=== PATIENT | female | born 1930 | race Two or more races ===

== ENCOUNTER 2018-07-26 10:51 | Inpatient (IN) | payer MEDICARE, OTHER ==
[~2018-07-26] VITALS: Ht 144.8 cm; Wt 69.9 kg
[2018-07-26 11:17] VITALS: BP 113/82
--- NOTE | 2018-07-26 11:37 | Emergency Room Report ---
History of Present Illness General Chief Complaint: Dyspnea/Respdistress Source: Patient Present Illness HPI Patient presents with daughter for complaints of progressively worsening shortness of breath and cough Patient appears weaker than usual Has been eating less Daughter denies any focal deficit denies any recent fall or trauma Denies any recent travel Daughter reports that the patient appeared to have possible cold recently Otherwise denies any rash Denies any dysuria Allergies: Coded Allergies: No Known Allergies (Unverified , 07/26/18) Patient History Past Medical History: see triage record Pertinent Family History: none Now: No Reviewed Nursing Documentation: PMH: Agreed; PSxH: Agreed Nursing Documentation-PMH Past Medical History: No History, Except For Hx Asthma: Yes Hx COPD: Yes - Pneumonia Review of Systems All Other Systems: negative except mentioned in HPI Physical Exam Vital Signs Date Time Temp Pulse Resp B/P (MAP) Pulse Ox O2 Delivery O2 Flow Rate FiO2 07/26/18 10:58 98.1 89 20 114/75 Room Air 07/26/18 11:17 95 Sp02 EP Interpretation: reviewed, normal General Appearance: well appearing - However mildly weak Head: normocephalic, atraumatic Eyes: bilateral eye PERRL, bilateral eye EOMI ENT: hearing grossly normal, TMs + canals normal, uvula midline, dry mucus membranes Neck: full range of motion, supple, no meningismus, no bony tend Respiratory: no respiratory distress, no retraction, no accessory muscle use, crackles - Bilaterally Cardiovascular #1: normal peripheral pulses, regular rate, rhythm, no edema, no gallop, no JVD, no murmur Gastrointestinal: normal bowel sounds, non tender, soft, no mass, no organomegaly, non-distended, no guarding, no hernia, no pulsatile mass, no rebound Genitourinary: no CVA tenderness Musculoskeletal: normal inspection Neurologic: oriented x3, responsive, social media analyst III-XII nml as tested, motor strength/ tone normal, sensory intact Psychiatric: mood/affect normal Skin: normal color, no rash, warm/dry, palpation normal Lymphatic: normal inspection, no adenopathy Medical Decision Making Diagnostic Impression: Primary Impression: Dyspnea Additional Impression: Respiratory distress ER Course Patient is a fairly complex patient with multiple differential to consideration including but not limited to cardiac cardiopulmonary and vascular emergencies Patient did better with breathing treatment ABG does reveal some CO2 retention and BiPAP has been ordered Patient's x-ray also shows some mild markings in the perihilar region Patient has multiple abnormal findings requiring further inpatient care Labs Test 07/26/18 11:25 07/26/18 11:40 07/26/18 11:51 White Blood Count 6.1 K/UL (4.8-10.8) Red Blood Count 4.82 M/UL (4.20-5.40) Hemoglobin 14.1 G/DL (12.0-16.0) Hematocrit 44.3 % (37.0-47.0) Mean Corpuscular Volume 92 FL (80-99) Mean Corpuscular Hemoglobin 29.3 PG (27.0-31.0) Mean Corpuscular Hemoglobin Concent 31.9 G/DL (32.0-36.0) Red Cell Distribution Width 12.4 % (11.6-14.8) Platelet Count 245 K/UL (150-450) Mean Platelet Volume 6.2 FL (6.5-10.1) Neutrophils (%) (Auto) 72.3 % (45.0-75.0) Lymphocytes (%) (Auto) 14.8 % (20.0-45.0) Monocytes (%) (Auto) 11.5 % (1.0-10.0) Eosinophils (%) (Auto) 0.4 % (0.0-3.0) Basophils (%) (Auto) 1.1 % (0.0-2.0) Sodium Level 135 MMOL/L (136-145) Potassium Level 4.1 MMOL/L (3.5-5.1) Chloride Level 99 MMOL/L (98-107) Carbon Dioxide Level 32 MMOL/L (21-32) Anion Gap 4 mmol/L (5-15) Blood Urea Nitrogen 20 mg/dL (7-18) Creatinine 0.8 MG/DL (0.55-1.30) Estimat Glomerular Filtration Rate mL/min (>60) Glucose Level 116 MG/DL (74-106) Lactic Acid Level 1.10 mmol/L (0.4-2.0) Calcium Level 8.6 MG/DL (8.5-10.1) Total Bilirubin 0.6 MG/DL (0.2-1.0) Aspartate Amino Transf (AST/SGOT) 20 U/L (15-37) Alanine Aminotransferase (ALT/SGPT) 16 U/L (12-78) Alkaline Phosphatase 56 U/L (46-116) Total Creatine Kinase 79 U/L (26-308) Creatine Kinase MB 2.0 NG/ML (0.0-3.6) Creatine Kinase MB Relative Index 2.5 Troponin I 0.063 ng/mL (0.000-0.056) Pro-B-Type Natriuretic Peptide 7111 pg/mL (0-125) Total Protein 6.6 G/DL (6.4-8.2) Albumin 3.4 G/DL (3.4-5.0) Globulin 3.2 g/dL Albumin/Globulin Ratio 1.1 (1.0-2.7) Lipase 65 U/L (73-393) Urine Color Yellow Urine Appearance Clear Urine pH 6 (4.5-8.0) Urine Specific [place] 1.010 (1.005-1.035) Urine Protein 2+ (NEGATIVE) Urine Glucose (UA) Negative (NEGATIVE) Urine Ketones Negative (NEGATIVE) Urine Blood 2+ (NEGATIVE) Urine Nitrite Negative (NEGATIVE) Urine Bilirubin Negative (NEGATIVE) Urine Urobilinogen 1 MG/DL (0.0-1.0) Urine Leukocyte Esterase 1+ (NEGATIVE) Urine RBC 2-4 /HPF (0 - 2) Urine WBC 0-2 /HPF (0 - 2) Urine Squamous Epithelial Cells Few /LPF (NONE/OCC) Urine Bacteria Few /HPF (NONE) Arterial Blood pH 7.256 (7.350-7.450) Arterial Blood Partial Pressure CO2 65.8 mmHg (35.0-45.0) Arterial Blood Partial Pressure O2 81.5 mmHg (75.0-100.0) Arterial Blood HCO3 28.6 mmol/L (22.0-26.0) Arterial Blood Oxygen Saturation 94.4 % (95-100) Arterial Blood Base Excess -0.1 (-2-2) Luis Alfredo Test Positive Rhythm Strip Diag. Results EP Interpretation: yes Rate: 76 Rhythm: NSR, no PVC's, no ectopy Chest X-Ray Diagnostic Results Chest X-Ray Diagnostic Results : Chest X-Ray Ordered: Yes # of Views/Limited/Complete: 1 View Indication: Chest Pain EP Interpretation: Yes Interpretation: no consolidation, no pneumothorax, other - Bilateral atelectasis Impression: No acute disease Electronically Signed by: Yessenia Ramirez DO Last Vital Signs Date Time Temp Pulse Resp B/P (MAP) Pulse Ox O2 Delivery O2 Flow Rate FiO2 07/26/18 11:17 98.1 83 20 113/82 95 Room Air Status: improved Disposition: ADMITTED INPATIENT Condition: Serious Referrals: Phil Mario MD (PCP) Yessenia Ramirez DO Jul 26, 2018 11:37
[2018-07-26 11:46] LABS: APPEARANCE,URINE CLEAR; BILIRUBIN, URINE NEGATIVE (NEGATIVE); GLUCOSE, URINE (UA) NEGATIVE (NEGATIVE); KETONES,URINE NEGATIVE (NEGATIVE); LEUKOCYTE ESTERASE ,URINE 1+ (NEGATIVE); NITRITE,URINE NEGATIVE (NEGATIVE); PH,URINE 6 (4.5-8.0); PROTEIN,URINE 2+ (NEGATIVE); UROBILINOGEN,URINE 1 MG/DL (0.0-1.0)
[2018-07-26 11:49] LABS: BASOPHILS % (AUTO) 1.1 % (0.0-2.0); EOSINOPHILS % (AUTO) 0.4 % (0.0-3.0); HEMATOCRIT 44.3 % (37.0-47.0); HEMOGLOBIN 14.1 G/DL (12.0-16.0); LYMPHOCYTES % (AUTO) 14.8 % (20.0-45.0); MEAN CORPUSCULAR VOLUME 92 FL (80-99); MONOCYTES % (AUTO) 11.5 % (1.0-10.0); NEUTROPHILS % (AUTO) 72.3 % (45.0-75.0); PLATELET COUNT 245 K/UL (150-450); RED BLOOD COUNT 4.82 M/UL (4.20-5.40); RED CELL DISTRIBUTION WIDTH 12.4 % (11.6-14.8); WHITE BLOOD COUNT 6.1 K/UL (4.8-10.8)
[2018-07-26 11:50] LABS: COLOR,URINE YELLOW
[2018-07-26 11:52] LABS: ANION GAP 4 mmol/L (5-15); BLOOD UREA NITROGEN 20 mg/dL (7-18); CALCIUM 8.6 MG/DL (8.5-10.1); CARBON DIOXIDE 32 MMOL/L (21-32); CHLORIDE 99 MMOL/L (98-107); CREATININE 0.8 MG/DL (0.55-1.30); POTASSIUM 4.1 MMOL/L (3.5-5.1); SODIUM 135 MMOL/L (136-145)
--- NOTE | 2018-07-26 12:01 | Diagnostic Imaging Report ---
EXAM: XR Chest, 1 View CLINICAL HISTORY: Chest pain TECHNIQUE: Frontal view of the chest. COMPARISON: No relevant prior studies available. FINDINGS: Lungs: Subsegmental atelectasis in bilateral lung bases. Pleural space: Unremarkable. The costophrenic angles are sharp. No visible pneumothorax. Heart: Cardiac silhouette appears enlarged however is magnified by portable technique. Mediastinum: Unremarkable. Bones/joints: Unremarkable. Vasculature: Atherosclerotic calcifications are noted within the aortic arch. Tubes, lines and devices: EKG leads overlie the thorax. IMPRESSION: Subsegmental atelectasis in bilateral lung bases. Cardiomegaly
[2018-07-26 12:05] LABS: ALANINE AMINOTRANSFERASE 16 U/L (12-78); ALBUMIN 3.4 G/DL (3.4-5.0); ALBUMIN/GLOBULIN RATIO 1.1 (1.0-2.7); ALKALINE PHOSPHATASE 56 U/L (46-116); ASPARTATE AMINO TRANSFERASE 20 U/L (15-37); BILIRUBIN,TOTAL 0.6 MG/DL (0.2-1.0); CREATINE KINASE 79 U/L (26-308)
[2018-07-26 13:15] VITALS: BP 120/78
[2018-07-26] MEDS ORDERED: Milk of Magnesia 30ml Ud ORAL PRN (14:15)
[2018-07-26] MEDS ORDERED: OTEZLA30 MG PO (17:13)
[2018-07-26] MEDS ORDERED: LOSARTAN POTASS25 M1 PO (17:13)
[2018-07-26] MEDS ORDERED: ZANTAC150 MG ORAL (17:13)
[2018-07-26] MEDS ORDERED: VITAMIN D1000 UNI1 ORAL (17:13)
[2018-07-26 20:00] VITALS: BP 139/81
[2018-07-26] MEDS: Heparin 5000 units/ml inj SUBQ SCH (21:00)
[2018-07-27] VITALS: BP 91/54
[2018-07-27 04:00] VITALS: BP 135/63
[2018-07-27 08:00] VITALS: BP 120/63
--- NOTE | 2018-07-27 08:13 | Consultation ---
Consult Note Consult Note 87 year old patient presents with daughter for complaints of worsening shortness of breath and cough Patient appears weaker than usual but does have oxygen at home PO intake reduced Daughter denies any focal deficit denies any recent fall or trauma Denies any recent illness Daughter reports that the patient appeared to have possible viral illness recently she is known to me from office visits. she has chronic lung disease Allergies: No Known Allergies (Unverified , 07/26/18) Past Medical History: psoriasis, gastritis, vitamin D deficiency, chronic lung disease, chronic hypoxemia, Asthma Pertinent Family History: not contributory Reviewed of systems: reviewed in detail; arthritis, unsteady, chronically on oxygen Physical WDWN NAD advanced age reduced breath sounds bilaterally without rhonchi or wheeze [id number] without MRG; ectopy NABS nontender no HSM no CCE kyphotic nonfocal and alert Labs Test 07/26/18 11:25 07/26/18 11:40 07/26/18 11:51 White Blood Count 6.1 K/UL (4.8-10.8) Red Blood Count 4.82 M/UL (4.20-5.40) Hemoglobin 14.1 G/DL (12.0-16.0) Hematocrit 44.3 % (37.0-47.0) Mean Corpuscular Volume 92 FL (80-99) Mean Corpuscular Hemoglobin 29.3 PG (27.0-31.0) Mean Corpuscular Hemoglobin Concent 31.9 G/DL (32.0-36.0) Red Cell Distribution Width 12.4 % (11.6-14.8) Platelet Count 245 K/UL (150-450) Mean Platelet Volume 6.2 FL (6.5-10.1) Neutrophils (%) (Auto) 72.3 % (45.0-75.0) Lymphocytes (%) (Auto) 14.8 % (20.0-45.0) Monocytes (%) (Auto) 11.5 % (1.0-10.0) Eosinophils (%) (Auto) 0.4 % (0.0-3.0) Basophils (%) (Auto) 1.1 % (0.0-2.0) Sodium Level 135 MMOL/L (136-145) Potassium Level 4.1 MMOL/L (3.5-5.1) Chloride Level 99 MMOL/L (98-107) Carbon Dioxide Level 32 MMOL/L (21-32) Anion Gap 4 mmol/L (5-15) Blood Urea Nitrogen 20 mg/dL (7-18) Creatinine 0.8 MG/DL (0.55-1.30) Estimat Glomerular Filtration Rate mL/min (>60) Glucose Level 116 MG/DL (74-106) Lactic Acid Level 1.10 mmol/L (0.4-2.0) Calcium Level 8.6 MG/DL (8.5-10.1) Total Bilirubin 0.6 MG/DL (0.2-1.0) Aspartate Amino Transf (AST/SGOT) 20 U/L (15-37) Alanine Aminotransferase (ALT/SGPT) 16 U/L (12-78) Alkaline Phosphatase 56 U/L (46-116) Total Creatine Kinase 79 U/L (26-308) Creatine Kinase MB 2.0 NG/ML (0.0-3.6) Creatine Kinase MB Relative Index 2.5 Troponin I 0.063 ng/mL (0.000-0.056) Pro-B-Type Natriuretic Peptide 7111 pg/mL (0-125) Total Protein 6.6 G/DL (6.4-8.2) Albumin 3.4 G/DL (3.4-5.0) Globulin 3.2 g/dL Albumin/Globulin Ratio 1.1 (1.0-2.7) Lipase 65 U/L (73-393) Urine Color Yellow Urine Appearance Clear Urine pH 6 (4.5-8.0) Urine Specific [place] 1.010 (1.005-1.035) Urine Protein 2+ (NEGATIVE) Urine Glucose (UA) Negative (NEGATIVE) Urine Ketones Negative (NEGATIVE) Urine Blood 2+ (NEGATIVE) Urine Nitrite Negative (NEGATIVE) Urine Bilirubin Negative (NEGATIVE) Urine Urobilinogen 1 MG/DL (0.0-1.0) Urine Leukocyte Esterase 1+ (NEGATIVE) Urine RBC 2-4 /HPF (0 - 2) Urine WBC 0-2 /HPF (0 - 2) Urine Squamous Epithelial Cells Few /LPF (NONE/OCC) Urine Bacteria Few /HPF (NONE) Arterial Blood pH 7.256 (7.350-7.450) Arterial Blood Partial Pressure CO2 65.8 mmHg (35.0-45.0) Arterial Blood Partial Pressure O2 81.5 mmHg (75.0-100.0) Arterial Blood HCO3 28.6 mmol/L (22.0-26.0) Arterial Blood Oxygen Saturation 94.4 % (95-100) Arterial Blood Base Excess -0.1 (-2-2) Luis Alfredo Test Positive IMPRESSION acute on chronic respiratory failure respiratory acidosis, acute on chronic elevated troponin possible troponin leak elevated BNP fluid overload cardiomegaly chronic hypoxemia COPD PLAN nebs qid lasix cards evaluation monitor rhythm monitor troponin PT tele refusing ABG BIPAP PRN impression, plan, and exam edited and reviewed in detail care discussed with Phil Spivey MD Jul 27, 2018 08:13
--- NOTE | 2018-07-27 08:14 | Pulmonology Progress Note ---
Subjective Allergies: Coded Allergies: No Known Allergies (Unverified , 07/26/18) Objective Last 24 Hour Vital Signs Date Time Temp Pulse Resp B/P (MAP) Pulse Ox O2 Delivery O2 Flow Rate FiO2 07/27/18 07:26 94 16 97 07/27/18 04:57 96 16 96 Facial 24 07/27/18 04:00 86 07/27/18 04:00 97.4 102 19 135/63 (87) 94 07/27/18 04:00 24 07/27/18 03:20 98 16 96 Facial 24 07/27/18 01:21 109 20 95 Facial 24 07/27/18 00:00 24 07/27/18 00:00 85 07/27/18 00:00 98.8 100 16 91/54 (66) 93 07/26/18 23:29 106 20 96 Facial 24 07/26/18 21:00 Bi-pap 07/26/18 20:51 83 17 96 Facial 24 07/26/18 20:50 83 19 96 Facial 24 07/26/18 20:00 91 07/26/18 20:00 24 07/26/18 20:00 98.5 73 20 139/81 (100) 96 07/26/18 16:54 89 20 94 Facial 24 07/26/18 16:00 24 07/26/18 15:41 100 07/26/18 15:30 72 19 95 Facial 24 07/26/18 13:49 Bi-pap 07/26/18 13:30 98.1 77 19 113/82 97 24 07/26/18 13:15 98.0 77 20 120/78 98 Room Air 07/26/18 12:35 99 19 97 Facial 24 07/26/18 11:17 98.1 83 20 113/82 95 Room Air 07/26/18 11:13 89 20 Room Air 07/26/18 10:58 98.1 89 20 114/75 Room Air Intake and Output 07/26/18 07/27/18 18:59 06:59 Intake Total 300 ml Balance 300 ml Intake Oral 300 ml # Voids 3 Laboratory Tests 07/26/18 11:25: White Blood Count 6.1, Red Blood Count 4.82, Hemoglobin 14.1, Hematocrit 44.3, Mean Corpuscular Volume 92, Mean Corpuscular Hemoglobin 29.3, Mean Corpuscular Hemoglobin Concent 31.9L, Red Cell Distribution Width 12.4, Platelet Count 245, Mean Platelet Volume 6.2L, Neutrophils (%) (Auto) 72.3, Lymphocytes (%) (Auto) 14.8L, Monocytes (%) (Auto) 11.5H, Eosinophils (%) (Auto) 0.4, Basophils (%) ( Auto) 1.1, Sodium Level 135L, Potassium Level 4.1, Chloride Level 99, Carbon Dioxide Level 32, Anion Gap 4L, Blood Urea Nitrogen 20H, Creatinine 0.8, Estimat Glomerular Filtration Rate , Glucose Level 116H, Lactic Acid Level 1.10 , Calcium Level 8.6, Total Bilirubin 0.6, Aspartate Amino Transf (AST/SGOT) 20, Alanine Aminotransferase (ALT/SGPT) 16, Alkaline Phosphatase 56, Total Creatine Kinase 79, Creatine Kinase MB 2.0, Creatine Kinase MB Relative Index 2.5, Troponin I 0.063H, Pro-B-Type Natriuretic Peptide 7111H, Total Protein 6.6, Albumin 3.4, Globulin 3.2, Albumin/Globulin Ratio 1.1, Lipase 65L 07/26/18 11:40: Urine Color Yellow, Urine Appearance Clear, Urine pH 6, Urine Specific [place] 1.010, Urine Protein 2+H, Urine Glucose (UA) Negative, Urine Ketones Negative, Urine Blood 2+H, Urine Nitrite Negative, Urine Bilirubin Negative, Urine Urobilinogen 1H, Urine Leukocyte Esterase 1+H, Urine RBC 2-4H, Urine WBC 0-2, Urine Squamous Epithelial Cells Few, Urine Bacteria Few 07/26/18 11:51: Arterial Blood pH 7.256L, Arterial Blood Partial Pressure CO2 65.8*H, Arterial Blood Partial Pressure O2 81.5, Arterial Blood HCO3 28.6H, Arterial Blood Oxygen Saturation 94.4L, Arterial Blood Base Excess -0.1, Luis Alfredo Test Positive Current Medications Medications (Trade) Dose Ordered Sig/Bijal Route PRN Reason Start Time Stop Time Status Last Admin Dose Admin Acetaminophen (Tylenol) 650 mg Q4H PRN ORAL Mild Pain/Temp > 100.5 07/26/18 14:15 08/25/18 14:14 07/27/18 03:48 Al Hydroxide/Mg Hydroxide (Mylanta) 30 ml DAILYPRN PRN ORAL FOR GI UPSET 07/26/18 15:45 08/25/18 14:14 Famotidine (Pepcid) 20 mg DAILY ORAL 07/27/18 09:00 08/26/18 08:59 Furosemide (Lasix) 40 mg DAILY IV 07/27/18 09:00 08/26/18 08:59 Heparin Sodium (Porcine) (Heparin 5000 units/ml) 5,000 units EVERY 12 HOURS SUBQ 07/26/18 21:00 08/25/18 20:59 Losartan Potassium (Cozaar) 50 mg DAILY ORAL 07/27/18 09:00 08/26/18 08:59 Magnesium Hydroxide (Mom) 30 ml DAILYPRN PRN ORAL Constipation 07/26/18 14:15 08/25/18 14:14 Pantoprazole (Protonix) 40 mg DAILY IVP 07/27/18 09:00 08/26/18 08:59 Phil Mario MD Jul 27, 2018 08:13
[2018-07-27] MEDS: Pantoprazole Inj IVP SCH (08:49)
[2018-07-27] MEDS: Losartan 50mg tab ORAL SCH (08:53)
[2018-07-27] MEDS: Heparin 5000 units/ml inj SUBQ SCH ×2 (08:55→21:16)
[2018-07-27] MEDS: Albuterol ud Inhalation HHN SCH ×4 (10:40→23:09)
--- NOTE | 2018-07-27 10:59 | Diagnostic Imaging Report ---
EXAM: XR Chest, 2 Views CLINICAL HISTORY: COPD TECHNIQUE: Frontal and lateral views of the chest. COMPARISON: Chest x-ray dated 07/26/18 FINDINGS: Lungs: Mild subsegmental atelectasis in medial lung bases. Emphysematous changes in the upper lung zones. Pleural space: Unremarkable. The costophrenic angle are sharp. No visible pneumothorax. Heart: Cardiac silhouette remains enlarged. Mediastinum: Unremarkable. Bones/joints: Unremarkable. Vasculature: Atherosclerotic calcifications are noted within the aortic arch. Tubes, lines and devices: EKG leads overlie the thorax. IMPRESSION: No significant interval change.
[2018-07-27 12:00] VITALS: BP 132/72
--- NOTE | 2018-07-27 13:30 | History and Physical Report ---
DATE OF ADMISSION: 07/26/2018 CHIEF COMPLAINT: Shortness of breath. HISTORY OF PRESENT ILLNESS: The patient is a pleasant 87-year-old female. She has a history of chronic lung disease and COPD, presented to the hospital with complaints of feeling "bad." According to the patient, she has not been feeling well for a little over a week. There is some questionable history of flu-like symptoms. The patient presented to the emergency room. There x-ray showed bibasilar atelectasis. She did have an elevated troponin. ABG showed respiratory acidosis. She was placed on BiPAP, given breathing treatments, and is now admitted for further evaluation and care. She denies any jhon chest pain. She denies any fevers or chills. PAST MEDICAL HISTORY: As above. PAST SURGICAL HISTORY: Include shoulder or back surgery. CURRENT MEDICATIONS: Reconciled and reviewed. ALLERGIES: None. FAMILY HISTORY: None. SOCIAL HISTORY: The patient is a prior heavy smoker, but quit 20 years ago. No alcohol. No drugs. REVIEW OF SYSTEMS: GENERAL: Positive malaise and weakness. HEENT: No headaches or visual changes. CARDIOPULMONARY: No chest pain. Positive shortness of breath. GASTROINTESTINAL: No nausea or vomiting. GENITOURINARY: No urgency or frequency. MUSCULOSKELETAL: No joint pain or swelling. NEUROLOGIC: No history of seizures. PHYSICAL EXAMINATION: VITAL SIGNS: Temperature 97.4, pulse 102, respirations 19, and blood pressure 135/63. GENERAL: The patient is a well-developed female, in no apparent distress. She is awake and alert. HEENT: Her pupils are equal, round, and reactive to light. Oropharynx clear. NECK: Supple. HEART: Regular rate and rhythm. LUNGS: Significant for diminished breath sounds. ABDOMEN: Soft, nontender, and nondistended. EXTREMITIES: Without clubbing, cyanosis, or edema. LABORATORY AND DIAGNOSTIC DATA: Chest x-ray showed bibasilar atelectasis. UA was clear. White count was 6, hemoglobin 14. Sodium 135, potassium is 4. Troponin 0.063. EKG showed sinus rhythm with PACs. ASSESSMENT: This is a pleasant female admitted with complaints of shortness of breath, the etiology of which is unclear, may be some combination of her chronic lung disease, cannot rule out acute coronary syndrome in light of the patient's elevated troponin. PLAN: Serial enzymes. Antiplatelet therapy. BiPAP as needed. Respiratory treatments. Diuresis. Check a venous duplex of the lower extremities. Pulmonary and Cardiology evaluations will be obtained. Jai Reddy M.D. DR: LELA JOB#: [id number] CC:
[2018-07-27 16:00] VITALS: BP 124/75
[2018-07-27 20:00] VITALS: BP 143/86
[2018-07-28] VITALS (7 sets, daily range): BP systolic 106–141; BP diastolic 57–70
[2018-07-28] MEDS: dilTIAZem HCl 30mg tab ORAL SCH ×5 (01:14→23:22)
[2018-07-28] MEDS: Albuterol ud Inhalation HHN SCH ×6 (02:54→23:03)
--- NOTE | 2018-07-28 07:15 | Consultation ---
DATE OF CONSULTATION: 07/27/2018 CARDIOLOGY CONSULTATION CONSULTING PHYSICIAN: Alonzo Guidry M.D. REQUESTING PHYSICIAN: Jai Reddy M.D. REASON FOR CONSULTATION: Cardiac arrhythmias and abnormal troponin level. HISTORY OF PRESENT ILLNESS: This is an 87-year-old female with a longstanding history of COPD who presented to the hospital yesterday with worsening complaints of shortness of breath and cough. She was increasingly weak and had reduced oral intake, sleeping more frequently, and less interactive according to her daughter. The patient has chronic hypoxia and is on home O2. In the emergency room, her initial diagnostic workup was notable for chest x-ray that revealed atelectasis and cardiomegaly. An ABG revealing pH 7.256, pCO2 66, and pO2 81. Natriuretic peptide of 7100. Her troponin of 0.063. Normal lactic acid. BUN 20, creatinine 0.8, potassium 4.1, sodium 135, and bicarbonate 32. Albumin of 3.4. The white count was 6.1 with hemoglobin 14. Urinalysis with no active sediment. The patient was admitted to the cardiac observation unit and started on intravenous furosemide inhaled bronchodilators. Continued on oxygen and has not been on steroids. Since admission, she continues to have arrhythmias obtained that I have reviewed. There appeared to be multifocal atrial tachycardia, episodes of sinus arrhythmia, and other episodes of sinus rhythm with frequent PACs. There is no sustained atrial fibrillation noted at this time. PAST MEDICAL HISTORY: Includes COPD, chronic hypoxia, and prior shoulder and back surgeries. ALLERGIES: None. FAMILY HISTORY: Noncontributory. SOCIAL HISTORY: Prior smoker over [id number], but quit 20 years ago. No alcohol or substance abuse. MEDICATIONS: Prior to admission, reviewed and reconciled. REVIEW OF SYSTEMS: A 10-point review of systems performed. All systems negative other than noted above. PHYSICAL EXAMINATION: VITAL SIGNS: Blood pressure 143/86, pulse 100, respiratory rate 18, and afebrile. HEENT: Normocephalic and atraumatic. Conjunctivae pink. Oropharynx clear. NECK: Supple. No accessory muscle use. LUNGS: Diminished breath sounds. No wheezing. CARDIAC: Irregularly irregular rhythm. Normal S1 and S2 with no appreciable murmur. ABDOMEN: Soft. EXTREMITIES: With no edema, cyanosis, or clubbing. IMPRESSION: 1. Acute on chronic respiratory acidosis. 2. Chronic hypoxia. 3. COPD exacerbation. 4. Acute myocardial ischemia and possible non-ST elevation infarction. 5. Acute on chronic diastolic congestive heart failure, likely right-sided and associated with acute respiratory compromise. 6. Paroxysmal atrial arrhythmias including multifocal atrial tachycardia, sinus arrhythmia, and premature atrial contractions with possibility of atrial fibrillation remains high. PLAN: 1. Recommend continue cardiac monitoring. 2. Add low-dose diltiazem for arrhythmia suppression. 3. Hold diuresis and recheck clinical parameters as well as natriuretic peptide assay. 4. Repeat troponin level. 5. Continue DVT prophylaxis. 6. Consideration for full anticoagulation should there be evidence of sustained atrial fibrillation and echocardiogram has been requested as well as thyroid panel. Alonzo Guidry M.D. DR: JEFFERSON JOB#: [id number] CC:
--- NOTE | 2018-07-28 08:32 | General Progress Note ---
Assessment/Plan Problem List: (1) Dyspnea ICD Codes: R06.00 - Dyspnea, unspecified SNOMED: 112267240 (2) Respiratory distress ICD Codes: R06.03 - Acute respiratory distress SNOMED: 651240985 (3) Arrhythmia ICD Codes: I49.9 - Cardiac arrhythmia, unspecified SNOMED: 925524003 Status: stable Assessment/Plan prn bipap o2 resp rx cardizem for rate control. dvt/stress ulcer prophylaxis follow up labs Subjective ROS Limited/Unobtainable: No Constitutional: Reports: weakness HEENT: Reports: no symptoms Cardiovascular: Reports: no symptoms Respiratory: Reports: shortness of breath Gastrointestinal/Abdominal: Reports: no symptoms Genitourinary: Reports: no symptoms Neurologic/Psychiatric: Reports: no symptoms Endocrine: Reports: no symptoms Hematologic/Lymphatic: Reports: no symptoms Allergies: Coded Allergies: No Known Allergies (Unverified , 07/26/18) All Systems: reviewed and negative except above Subjective no complaints. up eating breakfast. less sob. no chest pain no palpitations. Objective Last 24 Hour Vital Signs Date Time Temp Pulse Resp B/P (MAP) Pulse Ox O2 Delivery O2 Flow Rate FiO2 07/28/18 07:32 99 18 Nasal Cannula 3.0 32 07/28/18 07:32 Nasal Cannula 3.0 32 07/28/18 07:32 71 19 98 Nasal Cannula 3.0 32 07/28/18 07:32 99 Nasal Cannula 3.0 32 07/28/18 07:32 95 Nasal Cannula 2.0 28 07/28/18 05:51 100 121/53 07/28/18 04:00 98.3 95 20 111/68 (82) 95 07/28/18 04:00 24 07/28/18 03:46 94 07/28/18 03:02 68 20 98 Nasal Cannula 3.0 32 07/28/18 02:54 64 18 98 Nasal Cannula 3.0 32 07/28/18 01:14 93 106/67 07/28/18 00:00 97.5 74 22 106/67 (80) 95 07/27/18 23:21 69 18 98 Nasal Cannula 3.0 32 07/27/18 23:18 100 07/27/18 23:09 65 18 97 Nasal Cannula 3.0 32 07/27/18 21:00 Nasal Cannula 2.0 07/27/18 20:00 24 07/27/18 20:00 98.4 100 18 143/86 (105) 97 07/27/18 19:49 100 07/27/18 19:33 98 18 100 Nasal Cannula 3.0 32 07/27/18 19:23 98 20 99 Nasal Cannula 3.0 32 07/27/18 19:23 98 20 Nasal Cannula 3.0 32 07/27/18 16:00 24 07/27/18 16:00 92 07/27/18 16:00 97.3 84 16 124/75 (91) 97 07/27/18 14:36 Nasal Cannula 3.0 32 07/27/18 14:36 Nasal Cannula 3.0 32 07/27/18 12:00 97.9 85 16 132/72 (92) 100 07/27/18 12:00 24 07/27/18 12:00 89 07/27/18 10:40 Nasal Cannula 3.0 32 07/27/18 10:40 101 16 96 Nasal Cannula 3.0 32 07/27/18 09:00 Nasal Cannula 2.0 07/27/18 08:53 127/81 Intake and Output 07/27/18 07/28/18 19:00 07:00 Intake Total 360 ml 240 ml Balance 360 ml 240 ml Intake Oral 360 ml 240 ml # Voids 2 4 Height (Feet): 4 Height (Inches): 9.00 Weight (Pounds): 156 General Appearance: WD/WN, alert Neck: supple Cardiovascular: normal rate, regular rhythm Respiratory/Chest: chest wall non-tender, no respiratory distress, no accessory muscle use, decreased breath sounds Abdomen: normal bowel sounds, non tender, soft, no organomegaly Edema: no edema noted Arm (L), no edema noted Arm (R), no edema noted Leg (L), no edema noted Leg (R), no edema noted Pedal (L), no edema noted Pedal (R), no edema noted Generalized Jai Reddy MD Jul 28, 2018 08:32
--- NOTE | 2018-07-28 08:48 | Pulmonology Progress Note ---
Assessment/Plan Assessment/Plan IMPRESSION acute on chronic respiratory failure respiratory acidosis, acute on chronic elevated troponin possible troponin leak elevated BNP fluid overload cardiomegaly chronic hypoxemia COPD PLAN nebs qid jeannette and shivame cards evaluation noted monitor rhythm monitor troponin PT tele BIPAP PRN- not using dc planning oxygen needed with chronic hypoxemia- room air oxygen saturation is 80% at present impression, plan, and exam edited and reviewed in detail care discussed with RN Subjective Allergies: Coded Allergies: No Known Allergies (Unverified , 07/26/18) Subjective care noted comfortable no distress refuses ABG Objective Last 24 Hour Vital Signs Date Time Temp Pulse Resp B/P (MAP) Pulse Ox O2 Delivery O2 Flow Rate FiO2 07/28/18 11:00 99 18 82 Room Air 07/28/18 07:32 Nasal Cannula 3.0 32 07/28/18 07:32 71 19 98 Nasal Cannula 3.0 32 07/28/18 07:32 99 Nasal Cannula 3.0 32 07/28/18 07:32 95 Nasal Cannula 2.0 28 07/28/18 05:51 100 121/53 07/28/18 04:00 98.3 95 20 111/68 (82) 95 07/28/18 04:00 24 07/28/18 03:46 94 07/28/18 03:02 68 20 98 Nasal Cannula 3.0 32 07/28/18 02:54 64 18 98 Nasal Cannula 3.0 32 07/28/18 01:14 93 106/67 07/28/18 00:00 97.5 74 22 106/67 (80) 95 07/27/18 23:21 69 18 98 Nasal Cannula 3.0 32 07/27/18 23:18 100 07/27/18 23:09 65 18 97 Nasal Cannula 3.0 32 07/27/18 21:00 Nasal Cannula 2.0 07/27/18 20:00 24 07/27/18 20:00 98.4 100 18 143/86 (105) 97 07/27/18 19:49 100 07/27/18 19:33 98 18 100 Nasal Cannula 3.0 32 07/27/18 19:23 98 20 99 Nasal Cannula 3.0 32 07/27/18 19:23 98 20 Nasal Cannula 3.0 32 07/27/18 16:00 24 07/27/18 16:00 92 07/27/18 16:00 97.3 84 16 124/75 (91) 97 07/27/18 14:36 Nasal Cannula 3.0 32 07/27/18 14:36 Nasal Cannula 3.0 32 07/27/18 12:00 97.9 85 16 132/72 (92) 100 07/27/18 12:00 24 07/27/18 12:00 89 07/27/18 10:40 Nasal Cannula 3.0 32 07/27/18 10:40 101 16 96 Nasal Cannula 3.0 32 07/27/18 09:00 Nasal Cannula 2.0 07/27/18 08:53 127/81 Intake and Output 07/27/18 07/28/18 19:00 07:00 Intake Total 360 ml 240 ml Balance 360 ml 240 ml Intake Oral 360 ml 240 ml # Voids 2 4 Objective WDWN NAD kyphotic; on oxygen reduced breath sounds bilaterally without rhonchi or wheeze [id number] without MRG NABS nontender no HSM no CC mild edema nonfocal Microbiology Date/Time Source Procedure Growth Status 07/26/18 11:40 Blood Blood Culture - Preliminary NO GROWTH AFTER 24 HOURS Resulted 07/26/18 11:25 Blood Blood Culture - Preliminary NO GROWTH AFTER 24 HOURS Resulted Current Medications Medications (Trade) Dose Ordered Sig/Bijal Route PRN Reason Start Time Stop Time Status Last Admin Dose Admin Acetaminophen (Tylenol) 650 mg Q4H PRN ORAL Mild Pain/Temp > 100.5 07/26/18 14:15 08/25/18 14:14 07/27/18 23:35 Al Hydroxide/Mg Hydroxide (Mylanta) 30 ml DAILYPRN PRN ORAL FOR GI UPSET 07/26/18 15:45 08/25/18 14:14 Albuterol Sulfate (Proventil) 2.5 mg Q4HRT HHN 07/27/18 11:00 08/01/18 10:59 07/28/18 02:54 Diltiazem HCl (Cardizem) 30 mg EVERY 6 HOURS ORAL 07/28/18 00:45 08/27/18 00:44 07/28/18 05:51 Famotidine (Pepcid) 20 mg DAILY ORAL 07/27/18 09:00 08/26/18 08:59 07/27/18 08:49 Heparin Sodium (Porcine) (Heparin 5000 units/ml) 5,000 units EVERY 12 HOURS SUBQ 07/26/18 21:00 08/25/18 20:59 07/27/18 21:16 Losartan Potassium (Cozaar) 50 mg DAILY ORAL 07/27/18 09:00 08/26/18 08:59 07/27/18 08:53 Magnesium Hydroxide (Mom) 30 ml DAILYPRN PRN ORAL Constipation 07/26/18 14:15 08/25/18 14:14 Pantoprazole (Protonix) 40 mg DAILY IVP 07/27/18 09:00 08/26/18 08:59 07/27/18 08:49 Phil Mario MD Jul 28, 2018 08:48
[2018-07-28] MEDS: Pantoprazole Inj IVP SCH (09:04)
[2018-07-28] MEDS: Losartan 50mg tab ORAL SCH (09:06)
[2018-07-28] MEDS: Heparin 5000 units/ml inj SUBQ SCH ×2 (09:07→20:39)
[2018-07-28] MEDS ORDERED: Albuterol ud Inhalation HHN SCH (09:30)
[2018-07-28 11:22] LABS: BASOPHILS % (AUTO) 1.1 % (0.0-2.0); EOSINOPHILS % (AUTO) 1.2 % (0.0-3.0); HEMATOCRIT 43.6 % (37.0-47.0); HEMOGLOBIN 13.9 G/DL (12.0-16.0); LYMPHOCYTES % (AUTO) 17.1 % (20.0-45.0); MEAN CORPUSCULAR VOLUME 94 FL (80-99); MONOCYTES % (AUTO) 12.9 % (1.0-10.0); NEUTROPHILS % (AUTO) 67.8 % (45.0-75.0); PLATELET COUNT 226 K/UL (150-450); RED BLOOD COUNT 4.65 M/UL (4.20-5.40); RED CELL DISTRIBUTION WIDTH 12.6 % (11.6-14.8); WHITE BLOOD COUNT 5.3 K/UL (4.8-10.8)
[2018-07-28 12:04] LABS: ALANINE AMINOTRANSFERASE 15 U/L (12-78); ALBUMIN 3.1 G/DL (3.4-5.0); ALBUMIN/GLOBULIN RATIO 0.9 (1.0-2.7); ALKALINE PHOSPHATASE 50 U/L (46-116); ANION GAP 1 mmol/L (5-15); ASPARTATE AMINO TRANSFERASE 17 U/L (15-37); BILIRUBIN,TOTAL 0.5 MG/DL (0.2-1.0); BLOOD UREA NITROGEN 14 mg/dL (7-18); CALCIUM 8.7 MG/DL (8.5-10.1); CARBON DIOXIDE 35 MMOL/L (21-32); CHLORIDE 103 MMOL/L (98-107); CHOLESTEROL 138 MG/DL (< 200); CREATININE 0.7 MG/DL (0.55-1.30); HDL CHOLESTEROL 39 MG/DL (40-60); POTASSIUM 4.2 MMOL/L (3.5-5.1); SODIUM 139 MMOL/L (136-145); TRIGLYCERIDES 60 MG/DL (30-150)
[2018-07-29] MEDS: Albuterol ud Inhalation HHN SCH ×3 (02:41→11:05)
[2018-07-29 04:28] VITALS: BP 106/76
[2018-07-29] MEDS: dilTIAZem HCl 30mg tab ORAL SCH (05:33)
--- NOTE | 2018-07-29 07:58 | Cardiology Report ---
APPROVED REPORT EXAM: Two-dimensional and M-mode echocardiogram with Doppler and color Doppler. INDICATION Arrythmia M-Mode DIMENSIONS IVSd1.1 (0.7-1.1cm)Left Atrium (MM)4.0 (1.6-4.0cm) LVDd5.0 (3.5-5.6cm)Aortic Root3.9 (2.0-3.7cm) PWd1.2 (0.7-1.1cm)Aortic Cusp Exc.1.9 (1.5-2.0cm) IVSs1.4 cm LVDs3.0 (2.5-4.0cm) PWs1.1 cm Normal left ventricular chamber size, systolic function and wall motion. Left ventricular ejection fraction estimated to be 55-60 %. Mild left ventricular hypertrophy by 2-D. Small pericardial effusion. Borderline Mild bi-atrial enlargement. Right ventricular chamber sizes are within normal limits. Focal aortic valve sclerosis with adequate cusp excursion. Moderatly Thickened mitral valve leaflets with normal excursion. Moderatly Mitral annulus and aortic root calcification. Pulmonic valve not well visualized. Normal tricuspid valve structure. IVC at 1.7 cm without physiologic collapse suggestive of increased RA pressure. A color flow and spectral Doppler study was performed and revealed: No aortic insufficiency . Trace to mild mitral regurgitation. Mitral diastolic velocities suggest reduced left ventricular relaxation c/w mild LV diastolic dysfunction (Grade I ). Mild tricuspid regurgitation. Tricuspid systolic velocities suggests peak right ventricular systolic pressure of 60 mmHg,consistent with borderline severe pulmonary hypertension. Trace pulmonic regurgitation .
--- NOTE | 2018-07-29 08:28 | Cardiology Report ---
APPROVED REPORT EKG Measurement Heart [id number] CO [id number] Multifocal atrial rhythm Abnormal ECG
--- NOTE | 2018-07-29 08:43 | General Progress Note ---
Assessment/Plan Problem List: (1) Dyspnea ICD Codes: R06.00 - Dyspnea, unspecified SNOMED: 254259192 (2) Respiratory distress ICD Codes: R06.03 - Acute respiratory distress SNOMED: 036137479 (3) Arrhythmia ICD Codes: I49.9 - Cardiac arrhythmia, unspecified SNOMED: 681815268 Status: stable, progressing Assessment/Plan prn bipap o2 resp rx cardizem for rate control. dvt/stress ulcer prophylaxis prn diuresis Subjective ROS Limited/Unobtainable: No Constitutional: Reports: malaise, weakness HEENT: Reports: no symptoms Cardiovascular: Reports: no symptoms Respiratory: Reports: no symptoms Gastrointestinal/Abdominal: Reports: no symptoms Genitourinary: Reports: no symptoms Neurologic/Psychiatric: Reports: no symptoms Endocrine: Reports: no symptoms Hematologic/Lymphatic: Reports: no symptoms Allergies: Coded Allergies: No Known Allergies (Unverified , 07/26/18) All Systems: reviewed and negative except above Subjective no complaints. less sob. no chest pain no palpitations. echo noted. of bipap on nasal cannula Objective Last 24 Hour Vital Signs Date Time Temp Pulse Resp B/P (MAP) Pulse Ox O2 Delivery O2 Flow Rate FiO2 07/29/18 07:46 97 18 96 Nasal Cannula 2.0 28 07/29/18 07:41 99 18 92 Room Air 21 07/29/18 07:41 Nasal Cannula 3.0 32 07/29/18 07:39 92 Room Air 21 07/29/18 05:33 102 106/76 07/29/18 04:28 98.3 103 21 106/76 (86) 94 07/29/18 02:56 93 18 99 Nasal Cannula 2.0 28 07/29/18 02:41 88 18 97 Nasal Cannula 2.0 28 07/28/18 23:57 99.1 07/28/18 23:22 102 141/58 07/28/18 23:13 90 18 100 Nasal Cannula 2.0 28 07/28/18 23:10 98.5 88 20 141/58 (85) 96 07/28/18 23:03 91 18 98 Nasal Cannula 2.0 28 07/28/18 21:00 Nasal Cannula 2.0 07/28/18 20:00 99.1 61 20 125/57 (79) 97 07/28/18 19:53 65 18 99 Nasal Cannula 2.0 28 07/28/18 19:44 Nasal Cannula 3.0 32 07/28/18 19:44 97 Nasal Cannula 3.0 32 07/28/18 19:43 85 18 Nasal Cannula 3.0 32 07/28/18 19:42 77 18 95 Nasal Cannula 2.0 28 07/28/18 18:27 82 131/69 07/28/18 16:00 97.8 82 19 131/69 (89) 98 07/28/18 15:25 81 16 97 Nasal Cannula 2.0 28 07/28/18 15:13 81 21 93 Nasal Cannula 2.0 28 07/28/18 12:15 77 121/67 07/28/18 12:00 100 07/28/18 12:00 97.0 77 19 121/67 (85) 99 07/28/18 11:06 Nasal Cannula 2.0 28 07/28/18 11:06 94 Nasal Cannula 2.0 28 07/28/18 09:45 66 18 97 Nasal Cannula 2.0 28 07/28/18 09:33 67 21 94 Nasal Cannula 2.0 28 07/28/18 09:06 130/70 07/28/18 09:00 Nasal Cannula 2.0 Intake and Output 07/28/18 07/29/18 19:00 07:00 Intake Total 480 ml 640 ml Balance 480 ml 640 ml Intake Oral 480 ml 640 ml # Voids 3 4 # Bowel Movements 1 Laboratory Tests 07/28/18 10:20: White Blood Count 5.3, Red Blood Count 4.65, Hemoglobin 13.9, Hematocrit 43.6, Mean Corpuscular Volume 94, Mean Corpuscular Hemoglobin 29.9, Mean Corpuscular Hemoglobin Concent 32.0, Red Cell Distribution Width 12.6, Platelet Count 226, Mean Platelet Volume 5.7L, Neutrophils (%) (Auto) 67.8, Lymphocytes (%) (Auto) 17.1L, Monocytes (%) (Auto) 12.9H, Eosinophils (%) (Auto) 1.2, Basophils (%) ( Auto) 1.1, Sodium Level 139, Potassium Level 4.2, Chloride Level 103, Carbon Dioxide Level 35H, Anion Gap 1L, Blood Urea Nitrogen 14, Creatinine 0.7, Estimat Glomerular Filtration Rate , Glucose Level 112H, Calcium Level 8.7, Magnesium Level 1.7L, Total Bilirubin 0.5, Aspartate Amino Transf (AST/SGOT) 17 , Alanine Aminotransferase (ALT/SGPT) 15, Alkaline Phosphatase 50, Troponin I 0.026, Pro-B-Type Natriuretic Peptide 1644H, Total Protein 6.5, Albumin 3.1L, Globulin 3.4, Albumin/Globulin Ratio 0.9L, Triglycerides Level 60, Cholesterol Level 138, LDL Cholesterol 82, HDL Cholesterol 39L, Cholesterol/HDL Ratio 3.5, Thyroid Stimulating Hormone (TSH) 0.318L Height (Feet): 4 Height (Inches): 9.00 Weight (Pounds): 155 Objective General Appearance: WD/WN, alert Neck: supple Cardiovascular: normal rate, regular rhythm Respiratory/Chest: chest wall non-tender, no respiratory distress, no accessory muscle use, decreased breath sounds Abdomen: normal bowel sounds, non tender, soft, no organomegaly Edema: no edema noted Arm (L), no edema noted Arm (R), no edema noted Leg (L), no edema noted Leg (R), no edema noted Pedal (L), no edema noted Pedal (R), no edema noted Generalized Jai Reddy MD Jul 29, 2018 08:43
--- NOTE | 2018-07-29 08:53 | Pulmonology Progress Note ---
Assessment/Plan Assessment/Plan IMPRESSION acute on chronic respiratory failure respiratory acidosis, acute on chronic elevated troponin possible troponin leak elevated BNP fluid overload cardiomegaly chronic hypoxemia COPD PLAN nebs qid lasix and diurese- january dc cards evaluation noted monitor rhythm monitor troponin PT tele BIPAP PRN- not using dc planning today oxygen needed with chronic hypoxemia- impression, plan, and exam edited and reviewed in detail care discussed with RN Subjective Allergies: Coded Allergies: No Known Allergies (Unverified , 07/26/18) Subjective care noted comfortable no distress oxygen obtained by DME Objective Last 24 Hour Vital Signs Date Time Temp Pulse Resp B/P (MAP) Pulse Ox O2 Delivery O2 Flow Rate FiO2 07/29/18 07:46 97 18 96 Nasal Cannula 2.0 28 07/29/18 07:41 99 18 92 Room Air 21 07/29/18 07:41 Nasal Cannula 3.0 32 07/29/18 07:39 92 Room Air 21 07/29/18 05:33 102 106/76 07/29/18 04:28 98.3 103 21 106/76 (86) 94 07/29/18 02:56 93 18 99 Nasal Cannula 2.0 28 07/29/18 02:41 88 18 97 Nasal Cannula 2.0 28 07/28/18 23:57 99.1 07/28/18 23:22 102 141/58 07/28/18 23:13 90 18 100 Nasal Cannula 2.0 28 07/28/18 23:10 98.5 88 20 141/58 (85) 96 07/28/18 23:03 91 18 98 Nasal Cannula 2.0 28 07/28/18 21:00 Nasal Cannula 2.0 07/28/18 20:00 99.1 61 20 125/57 (79) 97 07/28/18 19:53 65 18 99 Nasal Cannula 2.0 28 07/28/18 19:44 Nasal Cannula 3.0 32 07/28/18 19:44 97 Nasal Cannula 3.0 32 07/28/18 19:43 85 18 Nasal Cannula 3.0 32 07/28/18 19:42 77 18 95 Nasal Cannula 2.0 28 07/28/18 18:27 82 131/69 07/28/18 16:00 97.8 82 19 131/69 (89) 98 07/28/18 15:25 81 16 97 Nasal Cannula 2.0 28 07/28/18 15:13 81 21 93 Nasal Cannula 2.0 28 07/28/18 12:15 77 121/67 07/28/18 12:00 100 07/28/18 12:00 97.0 77 19 121/67 (85) 99 07/28/18 11:06 Nasal Cannula 2.0 28 07/28/18 11:06 94 Nasal Cannula 2.0 28 07/28/18 09:45 66 18 97 Nasal Cannula 2.0 28 07/28/18 09:33 67 21 94 Nasal Cannula 2.0 28 07/28/18 09:06 130/70 07/28/18 09:00 Nasal Cannula 2.0 Intake and Output 07/28/18 07/29/18 19:00 07:00 Intake Total 480 ml 640 ml Balance 480 ml 640 ml Intake Oral 480 ml 640 ml # Voids 3 4 # Bowel Movements 1 Objective WDWN NAD kyphotic; on oxygen reduced breath sounds bilaterally without rhonchi or wheeze [id number] without MRG NABS nontender no HSM no CC mild edema nonfocal reviewed and examined Microbiology Date/Time Source Procedure Growth Status 07/26/18 11:40 Blood Blood Culture - Preliminary NO GROWTH AFTER 48 HOURS Resulted 07/26/18 11:25 Blood Blood Culture - Preliminary NO GROWTH AFTER 48 HOURS Resulted Laboratory Tests 07/28/18 10:20: White Blood Count 5.3, Red Blood Count 4.65, Hemoglobin 13.9, Hematocrit 43.6, Mean Corpuscular Volume 94, Mean Corpuscular Hemoglobin 29.9, Mean Corpuscular Hemoglobin Concent 32.0, Red Cell Distribution Width 12.6, Platelet Count 226, Mean Platelet Volume 5.7L, Neutrophils (%) (Auto) 67.8, Lymphocytes (%) (Auto) 17.1L, Monocytes (%) (Auto) 12.9H, Eosinophils (%) (Auto) 1.2, Basophils (%) ( Auto) 1.1, Sodium Level 139, Potassium Level 4.2, Chloride Level 103, Carbon Dioxide Level 35H, Anion Gap 1L, Blood Urea Nitrogen 14, Creatinine 0.7, Estimat Glomerular Filtration Rate , Glucose Level 112H, Calcium Level 8.7, Magnesium Level 1.7L, Total Bilirubin 0.5, Aspartate Amino Transf (AST/SGOT) 17 , Alanine Aminotransferase (ALT/SGPT) 15, Alkaline Phosphatase 50, Troponin I 0.026, Pro-B-Type Natriuretic Peptide 1644H, Total Protein 6.5, Albumin 3.1L, Globulin 3.4, Albumin/Globulin Ratio 0.9L, Triglycerides Level 60, Cholesterol Level 138, LDL Cholesterol 82, HDL Cholesterol 39L, Cholesterol/HDL Ratio 3.5, Thyroid Stimulating Hormone (TSH) 0.318L Current Medications Medications (Trade) Dose Ordered Sig/Bijal Route PRN Reason Start Time Stop Time Status Last Admin Dose Admin Acetaminophen (Tylenol) 650 mg Q4H PRN ORAL Mild Pain/Temp > 100.5 07/28/18 22:15 08/25/18 14:14 07/28/18 23:27 Al Hydroxide/Mg Hydroxide (Mylanta) 30 ml DAILYPRN PRN ORAL FOR GI UPSET 07/29/18 15:45 08/25/18 14:14 Albuterol Sulfate (Proventil) 2.5 mg Q4HRT HHN 07/28/18 23:00 08/01/18 10:59 07/29/18 07:38 Diltiazem HCl (Cardizem) 30 mg EVERY 6 HOURS ORAL 07/29/18 00:00 08/27/18 00:44 07/29/18 05:33 Famotidine (Pepcid) 20 mg DAILY ORAL 07/29/18 09:00 08/26/18 08:59 Heparin Sodium (Porcine) (Heparin 5000 units/ml) 5,000 units EVERY 12 HOURS SUBQ 07/29/18 09:00 08/25/18 20:59 Losartan Potassium (Cozaar) 50 mg DAILY ORAL 07/29/18 09:00 08/26/18 08:59 Magnesium Hydroxide (Mom) 30 ml DAILYPRN PRN ORAL Constipation 07/29/18 14:15 08/25/18 14:14 Pantoprazole (Protonix) 40 mg DAILY IVP 07/29/18 09:00 08/26/18 08:59 Phil Mario MD Jul 29, 2018 08:53
[2018-07-29 09:00] VITALS: BP 106/76
[2018-07-29] MEDS ORDERED: Pantoprazole Inj IVP SCH (09:00)
[2018-07-29] MEDS ORDERED: Losartan 50mg tab ORAL SCH (09:00)
[2018-07-29] MEDS ORDERED: Heparin 5000 units/ml inj SUBQ SCH (09:00)
[2018-07-29 10:01] VITALS: BP 106/76
[2018-07-29] MEDS ORDERED: Milk of Magnesia 30ml Ud ORAL PRN (14:15)
--- NOTE | 2018-07-30 02:30 | Progress Note ---
DATE: 07/28/2018 CARDIOLOGY PROGRESS NOTE Late entry for 07/28/2018. SUBJECTIVE: The patient was started on diltiazem this morning. Monitor continues to have episodes of multifocal atrial rhythm and frequent PACs. No sustained atrial arrhythmias. Shortness of breath is decreasing as congestion. OBJECTIVE: VITAL SIGNS: Blood pressure 111/68, pulse 95, respirations 20, and 3 liters oxygen saturation 98%. LUNGS: Diminished breath sounds. No wheezing. HEART: Irregular rhythm. Normal S1, S2. No murmur. ABDOMEN: Soft. EXTREMITIES: No edema. LABORATORY AND DIAGNOSTIC DATA: Echocardiogram revealed normal ejection fraction. Evidence of severe pulmonary hypertension with PA systolic estimated at 60. IMPRESSION: 1. Chronic obstructive pulmonary disease. 2. Paroxysmal bronchospasm. 3. Pulmonary hypertension. 4. Paroxysmal atrial arrhythmias secondary to above. 5. Acute on chronic respiratory acidosis. PLAN: 1. Continue diltiazem with titration. 2. Maintain adequate oxygenation and acid-base parameters. Alonzo Guidry M.D. DR: LILIANA JOB#: [id number] CC:
--- NOTE | 2018-07-30 04:30 | Progress Note ---
DATE: 07/29/2018 CARDIOLOGY PROGRESS NOTE SUBJECTIVE: The patient feels better. Less short of breath. No palpitations. No chest pain. Oxygen saturation 92% on room air. OBJECTIVE: VITAL SIGNS: Blood pressure 106/76, pulse 102, and respiratory rate 21. LUNGS: Diminished breath sounds. Few rhonchi. CARDIAC: Irregular rhythm. Normal S1 and S2. ABDOMEN: Soft. EXTREMITIES: No edema. IMPRESSION: 1. COPD exacerbation, improved. 2. Paroxysmal bronchospasm, decreased. 3. Severe pulmonary hypertension due to above. 4. Paroxysmal atrial arrhythmias including multifocal atrial tachycardia secondary to above. 5. Low risk for cardioembolic event. 6. Acute on chronic respiratory acidosis, now compensated. PLAN: 1. for anticoagulation at present. 2. Continue diltiazem with titration based on clinical parameters. 3. Maintain adequate oxygenation and acid-base parameters. 4. Outpatient followup. Alonzo Guidry M.D. DR: JEFFERSON JOB#: [id number] CC:
--- NOTE | 2018-07-30 15:48 | Discharge Summary ---
Discharge Summary Discharge Summary _ DATE OF ADMISSION: 07/26/2018 DATE OF DISCHARGE: 07/29/2018 REASON FOR ADMISSION: 87 years old female with past medical history of COPD/asthma, chronic hypoxemia , psoriasis, gastritis ,vitamin D deficiency, presented to ED complaining of worsening shortness of breath and cough. Patient using oxygen at home. Daughter reported reduced oral intake. No recent falls or trauma , no focal deficit . Daughter reported recent viral illness. Upon evaluation vital signs were stable ,no fever . Laboratory workup revealed no leukocytosis ,stable hemoglobin and hematocrit . Troponin elevated- 0.063. Pro BNP 7111. Stable renal parameters and electrolytes . Chest x-ray revealed bibasilar atelectasis . EKG revealed no acute ischemic changes. Patient admitted with diagnoses of elevated troponin, rule out acute coronary syndrome, shortness of breath, possible COPD exacerbation. CONSULTANTS: activities leader internal medicine Dr. Reddy [facility] COURSE: Patient admitted to telemetry floor. Second troponin was negative. Possibly troponin leak versus acute myocardiac ischemia. ECG revealed multifocal atrial tachycardia , but no acute ischemic changes Supplemental oxygen provided as needed to keep pulse oximetry above 92%. Pulmonary toilet with bronchodilator provided. Patient with chronic hypoxemia and home oxygen dependent. ABG revealed evidence of acute respiratory acidosis with pH 7.26 and PCO2 65.8. Patient started on BiPAP, however patient was not compliant with BiPAP. Echocardiogram revealed preserved ejection fraction 55-60%, no evidence of wall motion abnormality. Right ventricular systolic pressure of 60 , consistent with severe pulmonary hypertension. Per activities leader, patient had evidence of acute on chronic diastolic heart failure , likely right sided, given chronic hypoxemia, COPD with brochospasma and severe pulmonary HTN. Patient started on diuresis with Lasix. Volumes and cardiorenal parameters were closely monitored. Pro BNP from initial 7111 down to 1644. Diuresis stopped. Telemetry showed paroxysmal atrial arrhythmias, including multifocal atrial tachycardia , sinus arrhythmia, and premature atrial contractions Patient started on low dose of Cardizem for suppression of atrial arrhythmias. Per activities leader, patient had low risk for cardioembolic event and no need for full anticoagulation at this time. Blood pressure was managed with calcium channel arvin and angiotensin receptor arvin, and remained stable. DVT and GI prophylaxis provided. Home medications resumed. Blood culture were negative. Supportive care provided. Patient clinically improved and was stable for discharge home with home health services with close observation FINAL DIAGNOSES: Acute on chronic respiratory failure Acute on chronic respiratory acidosis Elevated troponin Possibly troponin leak versus acute myocardiac ischemia Acute on chronic diastolic congestive heart failure Chronic hypoxemia COPD with bronchospasm Cardiomegaly Severe pulmonary HTN Paroxysmal atrial arrhythmias(multifocal atrial tachycardia ,sinus arrhythmia, and premature atrial contractions ) DISCHARGE MEDICATIONS: See Medication Reconciliation list. DISCHARGE INSTRUCTIONS: Patient was discharged home with home health services. Follow up with primary care provider in one week. I have been assigned to dictate discharge summary for this account. I was not involved in the patient's management. Helen Nolasco NP Jul 30, 2018 15:48
== END 2018-07-29 13:30 | disposition home health service (06) | DRG 190 ==
LOC: EMR 11:15 → UNDOADMIN 11:30 → 2E 11:30 → EDBEDREQ 11:47 → 3E 07-28 20:42
DX: J44.1 Chronic obstructive pulmonary disease with (acute) exacerbation (principal); J96.21 Acute and chronic respiratory failure with hypoxia; I50.33 Acute on chronic diastolic (congestive) heart failure; E87.2 Acidosis; I47.1 Supraventricular tachycardia; I51.3 Intracardiac thrombosis, not elsewhere classified; Z87.891 Personal history of nicotine dependence; R74.8 Abnormal levels of other serum enzymes; J44.9 Chronic obstructive pulmonary disease, unspecified; I27.20 Pulmonary hypertension, unspecified; I49.1 Atrial premature depolarization; J98.01 Acute bronchospasm
CPT/HCPCS: 36415; 36600; 71045; 80053; 80061; 81003; 82550; 82553; 82803; 83605; 83690; 83735; 83880; 84443; 84484; 85025; 87040; 93005; 93306; 93970; 94640; 94660; 94664; 94760; 96365; 99285

== ENCOUNTER 2018-07-30 10:14 | Inpatient (IN) | payer MEDICARE, OTHER ==
[~2018-07-30] VITALS: Ht 149.9 cm; Wt 66.8 kg
[~2018-07-30 10:14] MED LIST: LOSARTAN POTASS25 M1 PO; OTEZLA30 MG PO; VITAMIN D1000 UNI1 ORAL; ZANTAC150 MG ORAL
[2018-07-30 11:08] VITALS: BP 135/62
[2018-07-30 11:22] LABS: BASOPHILS % (AUTO) 1.5 % (0.0-2.0); EOSINOPHILS % (AUTO) 1.1 % (0.0-3.0); HEMATOCRIT 43.2 % (37.0-47.0); HEMOGLOBIN 13.6 G/DL (12.0-16.0); LYMPHOCYTES % (AUTO) 15.9 % (20.0-45.0); MEAN CORPUSCULAR VOLUME 94 FL (80-99); MONOCYTES % (AUTO) 12.5 % (1.0-10.0); PLATELET COUNT 231 K/UL (150-450)
--- NOTE | 2018-07-30 11:28 | Diagnostic Imaging Report ---
Indication: Dyspnea Comparison: 07/27/2018 A single view chest radiograph was obtained. Findings: Cardiac size and the ervin appear prominent but stable. Mild vascular congestion noted. Left pleural effusion may be present. IMPRESSION: No significant change from the prior exam
[2018-07-30 12:00] LABS: APPEARANCE,URINE CLEAR; BILIRUBIN, URINE NEGATIVE (NEGATIVE); COLOR,URINE AMBER; GLUCOSE, URINE (UA) NEGATIVE (NEGATIVE); KETONES,URINE NEGATIVE (NEGATIVE); LEUKOCYTE ESTERASE ,URINE NEGATIVE (NEGATIVE); NITRITE,URINE NEGATIVE (NEGATIVE); PH,URINE 5 (4.5-8.0); PROTEIN,URINE NEGATIVE (NEGATIVE); UROBILINOGEN,URINE 1 MG/DL (0.0-1.0)
[2018-07-30 12:12] LABS: AMMONIA 60 umol/L (11-32)
[2018-07-30 12:17] LABS: ALANINE AMINOTRANSFERASE 16 U/L (12-78); ALBUMIN 3.2 G/DL (3.4-5.0); ALKALINE PHOSPHATASE 53 U/L (46-116); ANION GAP 1 mmol/L (5-15); ASPARTATE AMINO TRANSFERASE 17 U/L (15-37); BILIRUBIN,TOTAL 0.8 MG/DL (0.2-1.0); BLOOD UREA NITROGEN 11 mg/dL (7-18); CALCIUM 8.9 MG/DL (8.5-10.1); CHLORIDE 100 MMOL/L (98-107); CREATINE KINASE 63 U/L (26-308); CREATININE 0.6 MG/DL (0.55-1.30); POTASSIUM 4.7 MMOL/L (3.5-5.1); SODIUM 142 MMOL/L (136-145)
[2018-07-30 12:18] LABS: CARBON DIOXIDE 41 MMOL/L (21-32)
[2018-07-30 12:24] VITALS: BP 122/62
[2018-07-30 12:42] LABS: INR 1.1 (0.9-1.1)
--- NOTE | 2018-07-30 13:48 | Emergency Room Report ---
History of Present Illness General Chief Complaint: Dyspnea/Respdistress Source: Patient, Family Member Present Illness HPI Patient was discharge yesterday. When she went home, she was alert. Later in the evening, she started to become obtunded. Family state she was hard to arouse and not eating. She denies pain or dyspnea. No noted fevers. No NVD. No reported dysuria. She is on home oxygen. Patient not answering many questions because obtunded. When discharged 07/29 these were her discharge diagnoses: Acute on chronic respiratory failure Acute on chronic respiratory acidosis Elevated troponin Possibly troponin leak versus acute myocardiac ischemia Acute on chronic diastolic congestive heart failure Chronic hypoxemia COPD with bronchospasm Cardiomegaly Severe pulmonary HTN Paroxysmal atrial arrhythmias(multifocal atrial tachycardia ,sinus arrhythmia, and premature atrial contractions ) Allergies: Coded Allergies: No Known Allergies (Unverified , 07/26/18) Patient History Limited by: medical condition Past Medical History: see triage record, old chart reviewed Social History: Reports: smoking - stopped 14 years ago - smoked 30 years, alcohol use - prior alcohol drinker, not now Social History Narrative at home with family Last Menstrual Period: na Reviewed Nursing Documentation: PMH: Agreed; PSxH: Agreed Nursing Documentation-PMH Past Medical History: No History, Except For Hx Cardiac Problems: Yes Hx Asthma: Yes Hx COPD: Yes Hx Cancer: No Hx Gastrointestinal Problems: No Hx Neurological Problems: Yes Hx Cerebrovascular Accident: Yes Review of Systems All Other Systems: limited Physical Exam Vital Signs Date Time Temp Pulse Resp B/P (MAP) Pulse Ox O2 Delivery O2 Flow Rate FiO2 07/30/18 10:18 97.9 80 24 135/62 58 Room Air Sp02 EP Interpretation: reviewed, normal General Appearance: no apparent distress, lethargic, Chronically Ill Head: normocephalic, atraumatic Eyes: bilateral eye normal inspection, bilateral eye PERRL ENT: moist mucus membranes Neck: supple Respiratory: decreased breath sounds, rales Cardiovascular #1: tachycardia Cardiovascular #2: 2+ radial (R) Gastrointestinal: normal inspection, non tender, no mass, non-distended, decreased bowel sounds Musculoskeletal: back normal, normal range of motion, no calf tenderness Neurologic: alert, motor strength/tone normal, DTRs symmetric, sensory intact, oriented - X2 Psychiatric: depressed affect Skin: warm/dry, cyanosis Procedures Critical Care Time Critical Care Time Total Critical Care Time: 45 min bedside evaluation and treatment excludes procedures (EKG). Reason for critical care: discovery of resp failure, BIPAP, repeat evaluations Possible complications: hypotension, hypertension, WI, shock, arrhythmias, metabolic acidosis, end organ damage, respiratory failure. Interventions: BIPAP, ABG interpretation, repeat evaluations, adjustment of FIO2 Course: Patient with increased lethargy after discharge. Patient with elevated bicarb leading to ABG. Respiratory acidosis led to BIPAP. Lasix given. Patient improved on BIPAP. Discussion with RT to decrease FIO2 to not remove hypoxemic drive to breathe. Improved. Discussion with family regarding level of care/intubation - they have not decided. Consultations: nursing staff, EMS, family, RT, admitting MD Performed by: Dr. Espinoza Tolerated well condition = serious Medical Decision Making Diagnostic Impression: Primary Impression: Respiratory failure Qualified Codes: J96.02 - Acute respiratory failure with hypercapnia Additional Impressions: CHF (congestive heart failure) Qualified Codes: I50.43 - Acute on chronic combined systolic (congestive) and diastolic (congestive) heart failure Pleural effusion, left COPD (chronic obstructive pulmonary disease) Qualified Codes: J44.1 - Chronic obstructive pulmonary disease with (acute) exacerbation ER Course Patient with obtundation post discharge. DDX: pneumonia, AMI, CHF, COPD, other toxic metabolic processes. Evaluation with EKG, CXR and labs. EKG with NSR with PACs with strain, no acute injury . CXR with CHF and large L effusion. Lab with increased bicarb. Normal CBC, lactate, troponin. Patient obtunded. ABG ordered. ABG with respiratory failure. BIPAP begun. Antibiotics not indicated. Awake on BIPAP. Titrating FiO2. Discussed findings with family and patient. May need pulmonary rehab. Attempt to get answer if family had discussed intubation - they have not. Requested that they think about and discuss. Admit SDU. Dr. Mario. Laboratory Tests Test 07/30/18 11:00 07/30/18 11:35 07/30/18 11:40 07/30/18 12:20 White Blood Count 5.0 K/UL (4.8-10.8) Red Blood Count 4.60 M/UL (4.20-5.40) Hemoglobin 13.6 G/DL (12.0-16.0) Hematocrit 43.2 % (37.0-47.0) Mean Corpuscular Volume 94 FL (80-99) Mean Corpuscular Hemoglobin 29.6 PG (27.0-31.0) Mean Corpuscular Hemoglobin Concent 31.5 G/DL (32.0-36.0) L Red Cell Distribution Width 13.0 % (11.6-14.8) Platelet Count 231 K/UL (150-450) Mean Platelet Volume 5.7 FL (6.5-10.1) L Neutrophils (%) (Auto) 69.0 % (45.0-75.0) Lymphocytes (%) (Auto) 15.9 % (20.0-45.0) L Monocytes (%) (Auto) 12.5 % (1.0-10.0) H Eosinophils (%) (Auto) 1.1 % (0.0-3.0) Basophils (%) (Auto) 1.5 % (0.0-2.0) Urine Color Kari Urine Appearance Clear Urine pH 5 (4.5-8.0) Urine Specific Regina 1.010 (1.005-1.035) Urine Protein Negative (NEGATIVE) Urine Glucose (UA) Negative (NEGATIVE) Urine Ketones Negative (NEGATIVE) Urine Blood 2+ (NEGATIVE) H Urine Nitrite Negative (NEGATIVE) Urine Bilirubin Negative (NEGATIVE) Urine Ictotest Yellow (NEGATIVE) Urine Urobilinogen 1 MG/DL (0.0-1.0) H Urine Leukocyte Esterase Negative (NEGATIVE) Urine RBC 2-4 /HPF (0 - 2) H Urine WBC 0-2 /HPF (0 - 2) Urine Squamous Epithelial Cells Few /LPF (NONE/OCC) Urine Bacteria Occasional /HPF (NONE) Urine Opiates Screen Negative (NEGATIVE) Urine Barbiturates Screen Negative (NEGATIVE) Phencyclidine (PCP) Screen Negative (NEGATIVE) Urine Amphetamines Screen Negative (NEGATIVE) Urine Benzodiazepines Screen Negative (NEGATIVE) Urine Cocaine Screen Negative (NEGATIVE) Urine Marijuana (THC) Screen Negative (NEGATIVE) Sodium Level 142 MMOL/L (136-145) Potassium Level 4.7 MMOL/L (3.5-5.1) Chloride Level 100 MMOL/L (98-107) Carbon Dioxide Level 41 MMOL/L (21-32) *H Anion Gap 1 mmol/L (5-15) L Blood Urea Nitrogen 11 mg/dL (7-18) Creatinine 0.6 MG/DL (0.55-1.30) Estimate Glomerular Filtration Rate mL/min (>60) Glucose Level 100 MG/DL (74-106) Lactic Acid Level 1.10 mmol/L (0.4-2.0) Calcium Level 8.9 MG/DL (8.5-10.1) Magnesium Level 1.8 MG/DL (1.8-2.4) Total Bilirubin 0.8 MG/DL (0.2-1.0) Aspartate Amino Transferase (AST) 17 U/L (15-37) Alanine Aminotransferase (ALT) 16 U/L (12-78) Alkaline Phosphatase 53 U/L (46-116) Ammonia 60 umol/L (11-32) H Total Creatine Kinase 63 U/L (26-308) Troponin I 0.021 ng/mL (0.000-0.056) Pro-B-Type Natriuretic Peptide 2049 pg/mL (0-125) H Total Protein 6.5 G/DL (6.4-8.2) Albumin 3.2 G/DL (3.4-5.0) L Globulin 3.3 g/dL Albumin/Globulin Ratio 1.0 (1.0-2.7) Prothrombin Time 11.4 SEC (9.30-11.50) Prothrombin Time INR 1.1 (0.9-1.1) PTT 28 SEC (23-33) Test 07/30/18 12:56 Arterial Blood pH 7.296 (7.350-7.450) Arterial Blood Partial Pressure CO2 94.7 mmHg (35.0-45.0) *H Arterial Blood Partial Pressure O2 70.2 mmHg (75.0-100.0) L Arterial Blood HCO3 45.1 mmol/L (22.0-26.0) *H Arterial Blood Oxygen Saturation 93.5 % (95-100) L Arterial Blood Base Excess 13.9 (-2-2) *H Luis Alfredo Test Positive EKG Diagnostic Results Rate: normal Rhythm: NSR ST Segments: other - ST depression septally with pacs Rhythm Strip Diag. Results EP Interpretation: yes Rhythm: NSR, no PVC's, other - PACs rate 89 Chest X-Ray Diagnostic Results Chest X-Ray Diagnostic Results : Chest X-Ray Ordered: Yes # of Views/Limited/Complete: 1 View Indication: Other EP Interpretation: Yes Interpretation: no pneumothorax, other - L effusion, CHF, inc Cor Last Vital Signs Date Time Temp Pulse Resp B/P (MAP) Pulse Ox O2 Delivery O2 Flow Rate FiO2 07/30/18 12:24 97.9 77 25 122/62 97 Room Air Status: improved Disposition: ADMITTED INPATIENT Condition: Serious Referrals: Phil Mario MD (PCP) Alonzo Espinoza MD Jul 30, 2018 13:48
[2018-07-30 14:46] VITALS: BP 133/68
[2018-07-30 18:05] VITALS: BP 125/75
[2018-07-30 19:13] VITALS: BP 126/85
[2018-07-30 20:30] VITALS: BP 144/80
[2018-07-30] MEDS ORDERED: Milk of Magnesia 30ml Ud ORAL PRN (22:00)
[2018-07-30] MEDS ORDERED: Albuterol ud Inhalation HHN PRN (22:00)
[2018-07-31] VITALS: BP 132/78
[2018-07-31 04:00] VITALS: BP 126/80
[2018-07-31 04:25] LABS: BASOPHILS % (AUTO) 1.2 % (0.0-2.0); EOSINOPHILS % (AUTO) 1.6 % (0.0-3.0); HEMATOCRIT 42.9 % (37.0-47.0); HEMOGLOBIN 13.7 G/DL (12.0-16.0); LYMPHOCYTES % (AUTO) 18.7 % (20.0-45.0); MEAN CORPUSCULAR VOLUME 92 FL (80-99); MONOCYTES % (AUTO) 13.1 % (1.0-10.0); NEUTROPHILS % (AUTO) 65.5 % (45.0-75.0); PLATELET COUNT 238 K/UL (150-450); RED BLOOD COUNT 4.68 M/UL (4.20-5.40); RED CELL DISTRIBUTION WIDTH 12.1 % (11.6-14.8); WHITE BLOOD COUNT 5.8 K/UL (4.8-10.8)
[2018-07-31 04:43] LABS: ANION GAP 3 mmol/L (5-15); BLOOD UREA NITROGEN 13 mg/dL (7-18); CALCIUM 8.9 MG/DL (8.5-10.1); CHLORIDE 94 MMOL/L (98-107); CREATININE 0.6 MG/DL (0.55-1.30); POTASSIUM 4.3 MMOL/L (3.5-5.1); SODIUM 138 MMOL/L (136-145)
[2018-07-31 05:33] LABS: CARBON DIOXIDE 43 MMOL/L (21-32)
[2018-07-31] MEDS: traMADol 50mg tab ORAL PRN ×3 (05:48→21:21)
[2018-07-31] MEDS: Vitamin D 1000 IU Tab ORAL SCH (09:28)
[2018-07-31] MEDS: Losartan 25mg tab ORAL SCH (09:29)
[2018-07-31] MEDS: Pantoprazole Inj IVP SCH (09:30)
[2018-07-31] MEDS: Heparin 5000 units/ml inj SUBQ SCH ×2 (09:31→21:16)
--- NOTE | 2018-07-31 09:59 | Diagnostic Imaging Report ---
Indication: Dyspnea Comparison: 07/30/2018 A single view chest radiograph was obtained. Findings: Cardiac silhouette is moderately enlarged. Pulmonary vascular congestion demonstrated. The hilar appear prominent bilaterally which is stable. IMPRESSION: No significant change
--- NOTE | 2018-07-31 17:15 | Consultation ---
DATE OF CONSULTATION: 07/31/2018 PULMONARY CONSULTATION REASON FOR ADMISSION: Respiratory failure. HISTORY OF PRESENT ILLNESS: This is an 87-year-old female who was just discharged from the hospital. The patient noted to have worsening respiratory distress once again and now readmitted. The patient noted to be more altered and was noted to have CO2 retention. The patient's care discussed and reviewed. The patient admitted to [facility]. The patient was without any associated symptoms. She just recently acquired oxygen at home. The patient with failure to thrive overall. The patient did improve previously with Lasix. Events were fairly acute. The patient was brought in by family. PAST MEDICAL HISTORY: Notable for acute on chronic respiratory failure, troponin leak, acute on chronic diastolic congestive heart failure, chronic hypoxemia, COPD, pulmonary hypertension, cardiomegaly, paroxysmal atrial dysrhythmias, arthritis, prior history of alcohol use. SOCIAL HISTORY: She lives with family. Quit smoking years ago. History of alcohol previously. The patient is retired. FAMILY HISTORY: Otherwise noncontributory to the above. REVIEW OF SYSTEMS: All 10 points reviewed and otherwise negative. PHYSICAL EXAMINATION: GENERAL: A well-developed female, comfortable, mildly short of breath. VITAL SIGNS: Saturation 98%, on face mask 84, blood pressure 126/80, temperature 98.1. HEENT: Negative. Extraocular movements are grossly intact. NECK: Supple. LUNGS: Coarse breath sounds reduced. CARDIAC: Normal S1 and S2. Occasional ectopy. No murmurs or rubs. ABDOMEN: Soft, nontender, obese. EXTREMITIES: No cyanosis or clubbing. There is mild edema. NEUROLOGICAL: Grossly nonfocal, but with reduced mental status. LABORATORY DATA: Arterial blood gas 7.29/94/70. Sodium 138, potassium 4.3, chloride 94, bicarbonate 43, BUN 13, creatinine 0.6. Hematology notable for white count 5.8 and platelets of 238. X-ray is suggestive of perihilar edema. IMPRESSION: 1. Acute on chronic respiratory failure. 2. Chronic obstructive pulmonary disease. 3. Congestive heart failure, acute on chronic, chronic hypoxemia, chronic hypercapnia. 4. Pulmonary hypertension. 5. Significant metabolic alkalosis. RECOMMENDATION: 1. BiPAP management for now. 2. Oxygen therapy for now. 3. Intravenous diuresis. 4. Resume home medication. 5. Of note, the patient has chronic respiratory failure due to underlying COPD and congestive heart failure. BiPAP is not sufficient and will need to order Trilogy NIV for AVAPS-AE mouthpiece ventilation support. Trilogy will reduce the work of breathing and reduce CO2 retention. For now continue as is. 6. DVT prophylaxis and monitor clinically for further changes and interventions and we will optimize and discharge the patient back home with home health once improved. Phil Mario M.D. DR: Jeremie JOB#: [id number] CC:
--- NOTE | 2018-07-31 17:15 | History and Physical Report ---
DATE OF ADMISSION: 07/30/2018 CHIEF COMPLAINT: Fall, respiratory failure, shortness of breath. HISTORY OF PRESENT ILLNESS: The patient is a pleasant female. She was recently hospitalized for CHF, COPD exacerbation, and hypoxemia. She was discharged home and was doing well. According to family members, she was ambulating to the bathroom to get some water. When they left the room, family heard a large thud and found the patient on the floor. According to the family, the patient stated that she had fallen and just lost her balance. She got back in bed, but the next day was increasingly weak and confused. She was able to stand without assistance. Family brought the patient back to the emergency room. There, she had a chest x-ray that showed left-sided pleural effusion, mild vascular congestion. There was no evidence of any rib fractures. The patient is now admitted for further evaluation and care. She is currently on BiPAP. According to family members, she is more comfortable now. PAST MEDICAL HISTORY: Significant for history of congestive heart failure, COPD, pleural effusion, history of encephalopathy, history of SVT. CURRENT MEDICATIONS: Reconciled and reviewed. ALLERGIES: None. FAMILY HISTORY: None. SOCIAL HISTORY: Negative for tobacco, ethanol, or drugs. REVIEW OF SYSTEMS: GENERAL: No fever or chills. HEENT: No headaches or visual changes. CARDIOPULMONARY: No chest pain. Positive shortness of breath. GASTROINTESTINAL: No nausea or vomiting. GENITOURINARY: No urgency or frequency. MUSCULOSKELETAL: No joint pain or swelling. NEUROLOGIC: No evidence of seizures. PHYSICAL EXAMINATION: VITAL SIGNS: Temperature 98 degrees, pulse is 84, respirations 16, and blood pressure 126/80. GENERAL: The patient is a well-developed female, in no apparent distress. She is awake, alert, follows commands. NECK: Supple. HEART: Regular rate and rhythm. LUNGS: Diminished breath sounds at the bases. ABDOMEN: Soft, nondistended. There is minimal tenderness to palpation in the left upper and left lower quadrants. LABORATORY DATA: White count 6, hemoglobin 13, hematocrit 42, and platelets 238,000. ABG showed pH of 7.39 with pCO2 of 94, pO2 of 70, bicarbonate 45, O2 saturation of 93%. ASSESSMENT: This is a pleasant female admitted with complaints of respiratory failure, mechanical fall, abdominal pain. She has COPD and hypertension. PLAN: Continue BiPAP. Monitor blood gases. Follow up chest x-ray. Consider diuresis trial with intravenous Lasix. Monitor electrolytes and volume status closely. Consider a CT scan of the abdomen to further evaluate the patient's abdominal pain once respiratory status is more stable. Jai Reddy M.D. DR: Vic JOB#: [id number] CC:
[2018-07-31 20:00] VITALS: BP 130/76
[2018-08-01] VITALS: BP 126/80
--- NOTE | 2018-08-01 00:45 | Progress Note ---
DATE: 07/31/2018 CARDIOLOGY PROGRESS NOTE SUBJECTIVE: The patient remains withdrawn, but not obtunded. Monitor, sinus with atrial ectopics and multifocal atrial tachycardia at times. OBJECTIVE: VITAL SIGNS: Blood pressure 153/116, pulse 84, respiratory rate 18. LUNGS: Diminished breath sounds, left greater than right. HEART: Irregularly irregular rhythm. Normal S1, S2. ABDOMEN: Soft. EXTREMITIES: No edema. LABORATORY AND DIAGNOSTIC DATA: Chest x-ray reveals no significant change with congestive heart failure noted and possible left effusion. Sodium 138, potassium 4.3, bicarbonate 43, BUN 13, and creatinine 0.6. ABG, pH 7.41, pCO2 75, pCO2 74. Ammonia level yesterday was 60. IMPRESSION: 1. Metabolic encephalopathy. 2. Acute on chronic respiratory acidosis, now compensated. 3. Compensatory respiratory alkalosis. 4. Acute on chronic diastolic congestive heart failure. 5. Paroxysmal atrial arrhythmias. 6. Severe COPD. PLAN: 1. Monitor respiratory parameters. 2. Add Diamox to help stimulate respiratory drive. 3. Resume diltiazem for suppression of atrial arrhythmias. 4. Cautious diuresis with intravenous furosemide. 5. DVT prophylaxis. 6. Respiratory hygiene. 7. Bronchodilators. Alonzo Guidry M.D. DR: Paul JOB#: [id number] CC:
--- NOTE | 2018-08-01 00:45 | Consultation ---
DATE OF CONSULTATION: 07/30/2018 CARDIOLOGY CONSULTATION CONSULTING PHYSICIAN: Alonzo Guidry M.D. REQUESTING PHYSICIAN: Jai Reddy M.D. REASON: Atrial arrhythmias in the setting of acute encephalopathy. HISTORY OF PRESENT ILLNESS: This 87-year-old female was discharged from the hospital yesterday following treatment for acute respiratory failure and respiratory acidosis due to chronic obstructive pulmonary disease with complications including atrial arrhythmias. She was well upon discharge, but later that evening became increasingly obtunded and was not able to be aroused by family members nor was she able to eat. She did not have any complaints of pain or shortness of breath and has not had any fevers, chills, nausea, vomiting, or diarrhea. She is on chronic oxygen therapy. She was brought into the emergency room for evaluation and hospitalization initiated for acute encephalopathy. PAST MEDICAL HISTORY: Chronic respiratory acidosis, chronic obstructive pulmonary disease, paroxysmal atrial arrhythmias, diastolic dysfunction with history of congestive heart failure, chronic hypoxia, paroxysmal bronchospasm, pulmonary hypertension, and cerebrovascular disease with history of cerebrovascular accident. SOCIAL HISTORY: Prior smoker, quit about 14 years ago, 30 to 40 pack year history. Moderate alcohol in the past, none presently. No illicit drug use. MEDICATIONS: Reviewed and reconciled. ALLERGIES: None known. FAMILY HISTORY: Noncontributory. REVIEW OF SYSTEMS: Presently not obtainable, but pertinent records from recent hospital charts are reviewed and noted above. PHYSICAL EXAMINATION: VITAL SIGNS: In the emergency room, blood pressure 135/62, pulse 80, respirations 24, afebrile, and oxygen saturation on room air was less than 60%. LUNGS: Diminished breath sounds. Obtunded. HEART: Regular rhythm. Rapid rate. Normal S1, S2. Ectopic beats noted. ABDOMEN: Soft, nontender. EXTREMITIES: With no edema. LABORATORY AND DIAGNOSTIC DATA: EKG reveals sinus rhythm, atrial ectopic beats. Chest x-ray with congestive heart failure and left pleural effusion. Lab studies, white count 5, hemoglobin 13.6. Sodium 142, potassium 4.7, bicarbonate 41, BUN 11, and creatinine 0.6. Pro-natriuretic peptide 2049. Troponin 0.021. ABG, 7.29, 95, and 70. IMPRESSION: 1. Acute on chronic respiratory acidosis. 2. Metabolic encephalopathy. 3. Hypoxia. 4. Compensatory metabolic alkalosis. 5. Acute on chronic diastolic congestive heart failure. 6. Mild protein-calorie malnutrition. 7. Paroxysmal atrial arrhythmias. 8. Chronic obstructive pulmonary disease. PLAN: 1. BiPAP support. 2. Consider acetazolamide to help stimulate respiratory drive. 3. Cautious diuresis. 4. DVT prophylaxis. 5. Cardiac monitoring. 6. Reassess for resumption of diltiazem for arrhythmia suppression. 7. No current indication for anticoagulation. 8. Venous duplex scan to assess for possible source of pulmonary emboli will be obtained. Alonzo Guidry M.D. DR: YOON JOB#: [id number] CC:
[2018-08-01 04:00] VITALS: BP 123/72
[2018-08-01] MEDS: dilTIAZem HCl 30mg tab ORAL SCH ×3 (06:22→21:10)
[2018-08-01 08:00] VITALS: BP 125/80
--- NOTE | 2018-08-01 09:24 | General Progress Note ---
Assessment/Plan Problem List: (1) Abdominal pain ICD Codes: R10.9 - Unspecified abdominal pain SNOMED: 49222529 (2) Arrhythmia ICD Codes: I49.9 - Cardiac arrhythmia, unspecified SNOMED: 224204965 (3) Encephalopathy ICD Codes: G93.40 - Encephalopathy, unspecified SNOMED: 60064037 (4) COPD (chronic obstructive pulmonary disease) ICD Codes: J44.9 - Chronic obstructive pulmonary disease, unspecified SNOMED: 27445228 Qualifiers: Qualified Codes: J44.1 - Chronic obstructive pulmonary disease with (acute) exacerbation (5) CHF (congestive heart failure) ICD Codes: I50.9 - Heart failure, unspecified SNOMED: 97438174 Qualifiers: Qualified Codes: I50.43 - Acute on chronic combined systolic (congestive) and diastolic (congestive) heart failure Status: stable Assessment/Plan cont bipap resp rx diuresis ct abd when pulm status better Subjective ROS Limited/Unobtainable: No Constitutional: Reports: malaise, weakness HEENT: Reports: no symptoms Cardiovascular: Reports: no symptoms Respiratory: Reports: no symptoms Gastrointestinal/Abdominal: Reports: abdominal pain Genitourinary: Reports: no symptoms Neurologic/Psychiatric: Reports: no symptoms Endocrine: Reports: no symptoms Hematologic/Lymphatic: Reports: no symptoms Allergies: Coded Allergies: No Known Allergies (Unverified , 07/26/18) All Systems: reviewed and negative except above Subjective no events. remains on bipap. family concerned about pt abd pain Objective Last 24 Hour Vital Signs Date Time Temp Pulse Resp B/P (MAP) Pulse Ox O2 Delivery O2 Flow Rate FiO2 08/01/18 07:02 98 Nasal Cannula 2.0 28 08/01/18 07:02 Nasal Cannula 2.0 28 08/01/18 06:22 91 128/74 08/01/18 05:02 85 16 97 Facial 28 08/01/18 04:00 30 08/01/18 04:00 91 08/01/18 04:00 Nasal Cannula 2.0 08/01/18 04:00 98.1 91 18 123/72 (89) 99 08/01/18 03:20 94 17 96 Facial 28 08/01/18 00:59 78 17 97 Facial 28 08/01/18 00:00 98.1 92 18 126/80 (95) 99 08/01/18 00:00 100 08/01/18 00:00 Nasal Cannula 2.0 08/01/18 00:00 30 07/31/18 22:53 95 16 97 Facial 28 07/31/18 20:00 98.1 92 18 130/76 (94) 99 07/31/18 20:00 Nasal Cannula 2.0 07/31/18 20:00 90 07/31/18 20:00 30 07/31/18 17:13 80 16 99 07/31/18 16:00 Nasal Cannula 2.0 07/31/18 16:00 98 07/31/18 16:00 30 07/31/18 15:17 89 17 97 Full Face 28 07/31/18 13:12 84 18 98 Full Face 28 07/31/18 12:35 98.1 07/31/18 12:00 100 07/31/18 12:00 Nasal Cannula 2.0 07/31/18 12:00 30 07/31/18 10:40 84 18 97 Facial 28 07/31/18 09:29 152/116 Intake and Output 07/31/18 08/01/18 19:00 07:00 Intake Total 450 ml 200 ml Output Total 1200 ml 300 ml Balance -750 ml -100 ml Intake Oral 450 ml 200 ml Output Urine Total 1200 ml 300 ml # Voids 2 Height (Feet): 4 Height (Inches): 11.00 Weight (Pounds): 147 General Appearance: WD/WN, alert Neck: supple Cardiovascular: regular rhythm Respiratory/Chest: chest wall non-tender, lungs clear, normal breath sounds Abdomen: normal bowel sounds, soft, no organomegaly, no mass Edema: no edema noted Arm (L), no edema noted Arm (R), no edema noted Leg (L), no edema noted Leg (R), no edema noted Pedal (L), no edema noted Pedal (R), no edema noted 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
[2018-08-01] MEDS: Vitamin D 1000 IU Tab ORAL SCH (09:56)
[2018-08-01] MEDS: Losartan 25mg tab ORAL SCH (09:56)
[2018-08-01] MEDS: Pantoprazole Inj IVP SCH (09:56)
[2018-08-01] MEDS: Heparin 5000 units/ml inj SUBQ SCH ×2 (10:01→21:10)
[2018-08-01] MEDS: OTEZLA 30 MG ORAL SCH (11:44)
[2018-08-01 12:00] VITALS: BP 139/88
--- NOTE | 2018-08-01 13:49 | Pulmonology Progress Note ---
Assessment/Plan Assessment/Plan Pulmonary Progress Note Reason for Admission: Respiratory failure. HISTORY OF PRESENT ILLNESS: This is an 87-year-old female who was just discharged from the hospital. The patient noted to have worsening respiratory distress once again and now readmitted. The patient noted to be more altered and was noted to have CO2 retention. The patient's care discussed and reviewed. The patient admitted to [facility]. The patient was without any associated symptoms. She just recently acquired oxygen at home. The patient with failure to thrive overall. The patient did improve previously with Lasix. Events were fairly acute. The patient was brought in by family. PAST MEDICAL HISTORY: Notable for acute on chronic respiratory failure, troponin leak, acute on chronic diastolic congestive heart failure, chronic hypoxemia, COPD, pulmonary hypertension, cardiomegaly, paroxysmal atrial dysrhythmias, arthritis, prior history of alcohol use. SOCIAL HISTORY: She lives with family. Quit smoking years ago. History of alcohol previously. The patient is retired. FAMILY HISTORY: Otherwise noncontributory to the above. REVIEW OF SYSTEMS: All 10 points reviewed and otherwise negative. PHYSICAL EXAMINATION: GENERAL: A well-developed female, comfortable, mildly short of breath. VITAL SIGNS NOTED HEENT: Negative. Extraocular movements are grossly intact. NECK: Supple. LUNGS: Coarse breath sounds reduced. CARDIAC: Normal S1 and S2. Occasional ectopy. No murmurs or rubs. ABDOMEN: Soft, nontender, obese. EXTREMITIES: No cyanosis or clubbing. There is mild edema. NEUROLOGICAL: Grossly nonfocal, but with reduced mental status. LABORATORY DATA: Arterial blood gas 7.29/94/70. Sodium 138, potassium 4.3, chloride 94, bicarbonate 43, BUN 13, creatinine 0.6. Hematology notable for white count 5.8 and platelets of 238. X-ray is suggestive of perihilar edema. IMPRESSION: 1. Acute on chronic respiratory failure. 2. Chronic obstructive pulmonary disease. 3. Congestive heart failure, acute on chronic, chronic hypoxemia, chronic hypercapnia. 4. Pulmonary hypertension. 5. Significant metabolic alkalosis. RECOMMENDATION: 1. BiPAP management for now. 2. Oxygen therapy for now. 3. Intravenous diuresis. 4. Resume home medication. 5. Of note, the patient has chronic respiratory failure due to underlying COPD and congestive heart failure. BiPAP is not sufficient and will need to order Trilogy NIV for AVAPS-AE mouthpiece ventilation support. Trilogy will reduce the work of breathing and reduce CO2 retention. For now continue as is. 6. DVT prophylaxis and monitor clinically for further changes and interventions and we will optimize and discharge the patient back home with home health once improved. Subjective ROS Limited/Unobtainable: No Allergies: Coded Allergies: No Known Allergies (Unverified , 07/26/18) Objective Last 24 Hour Vital Signs Date Time Temp Pulse Resp B/P (MAP) Pulse Ox O2 Delivery O2 Flow Rate FiO2 08/01/18 13:12 92 139/88 08/01/18 12:00 98.2 92 20 139/88 (105) 98 92 08/01/18 12:00 2.0 08/01/18 12:00 Nasal Cannula 2.0 08/01/18 09:56 128/74 08/01/18 08:00 Nasal Cannula 2.0 08/01/18 08:00 98.0 90 18 125/80 (95) 99 08/01/18 08:00 2.0 08/01/18 07:55 95 08/01/18 07:02 98 Nasal Cannula 2.0 28 08/01/18 07:02 Nasal Cannula 2.0 28 08/01/18 06:22 91 128/74 08/01/18 05:02 85 16 97 Facial 28 08/01/18 04:00 30 08/01/18 04:00 91 08/01/18 04:00 Nasal Cannula 2.0 08/01/18 04:00 98.1 91 18 123/72 (89) 99 08/01/18 03:20 94 17 96 Facial 28 08/01/18 00:59 78 17 97 Facial 28 08/01/18 00:00 98.1 92 18 126/80 (95) 99 08/01/18 00:00 100 08/01/18 00:00 Nasal Cannula 2.0 08/01/18 00:00 30 07/31/18 22:53 95 16 97 Facial 28 07/31/18 20:00 98.1 92 18 130/76 (94) 99 07/31/18 20:00 Nasal Cannula 2.0 07/31/18 20:00 90 07/31/18 20:00 30 07/31/18 17:13 80 16 99 07/31/18 16:00 Nasal Cannula 2.0 07/31/18 16:00 98 07/31/18 16:00 30 07/31/18 15:17 89 17 97 Full Face 28 Intake and Output 07/31/18 08/01/18 19:00 07:00 Intake Total 450 ml 200 ml Output Total 1200 ml 300 ml Balance -750 ml -100 ml Intake Oral 450 ml 200 ml Output Urine Total 1200 ml 300 ml # Voids 2 Microbiology Date/Time Source Procedure Growth Status 07/30/18 11:48 Blood Blood Culture - Preliminary NO GROWTH AFTER 24 HOURS Resulted 07/30/18 11:35 Blood Blood Culture - Preliminary NO GROWTH AFTER 24 HOURS Resulted Current Medications Medications (Trade) Dose Ordered Sig/Bijal Route PRN Reason Start Time Stop Time Status Last Admin Dose Admin Acetaminophen (Tylenol) 650 mg Q4H PRN ORAL Mild Pain/Temp > 100.5 07/30/18 22:00 08/29/18 21:59 07/31/18 03:10 Acetazolamide (Diamox) 250 mg TWICE A DAY ORAL 08/01/18 09:00 08/31/18 08:59 08/01/18 09:57 Al Hydroxide/Mg Hydroxide (Mylanta) 30 ml Q4H PRN ORAL DYSPEPSIA 07/30/18 22:15 08/29/18 21:59 07/31/18 01:00 Albuterol Sulfate (Proventil) 2.5 mg Q4HRT PRN HHN Shortness of Breath 07/30/18 22:00 08/04/18 21:59 Barium Sulfate (Readi-Cat 2) 450 ml NOW PRN ORAL Radiology Procedure 08/01/18 09:30 08/03/18 09:22 Diltiazem HCl (Cardizem) 30 mg EVERY 8 HOURS ORAL 08/01/18 06:00 08/31/18 05:59 08/01/18 13:12 Escitalopram Oxalate (Lexapro) 10 mg DAILY ORAL 08/01/18 12:04 08/31/18 12:03 08/01/18 13:12 Famotidine (Pepcid) 10 mg DAILY ORAL 07/31/18 09:00 08/30/18 08:59 08/01/18 09:57 Furosemide (Lasix) 40 mg DAILY IV 07/31/18 09:00 08/30/18 08:59 08/01/18 09:58 Heparin Sodium (Porcine) (Heparin 5000 units/ml) 5,000 units EVERY 12 HOURS SUBQ 07/31/18 09:00 08/30/18 08:59 08/01/18 10:01 Lorazepam (Ativan 2mg/ml 1ml) 1 mg Q6H PRN IV For Anxiety 08/01/18 12:15 08/08/18 12:14 Losartan Potassium (Cozaar) 50 mg DAILY ORAL 07/31/18 09:00 08/30/18 08:59 08/01/18 09:56 Magnesium Hydroxide (Mom) 30 ml DAILYPRN PRN ORAL Constipation 07/30/18 22:00 08/29/18 21:59 Pantoprazole (Protonix) 40 mg DAILY IVP 07/31/18 09:00 08/30/18 08:59 08/01/18 09:56 Patient Own Medication (Patient's Own Med) 1 ea DAILY ORAL 08/01/18 11:31 08/31/18 11:30 08/01/18 11:44 Tramadol HCl (Ultram) 50 mg Q6H PRN ORAL pain 07/31/18 05:45 08/07/18 05:44 07/31/18 21:21 Vitamin D (Vitamin D) 1,000 intlu DAILY ORAL 07/31/18 09:00 08/30/18 08:59 08/01/18 09:56 Alonzo Vizcarra MD Aug 01, 2018 13:49
[2018-08-01 16:00] VITALS: BP 134/93
--- NOTE | 2018-08-01 19:46 | Consultation ---
DATE OF CONSULTATION: 08/01/2018 NOTE: INCOMPLETE DICTATION HISTORY OF PRESENT ILLNESS: The patient is an 87-year-old [place]-speaking female Jina Rouse M.D. DR: JJ JOB#: [id number] CC:
--- NOTE | 2018-08-01 19:46 | Consultation ---
DATE OF CONSULTATION: 08/01/2018 HISTORY OF PRESENT ILLNESS: This is an 87-year-old female with history of multiple medical problems including congestive heart failure, chronic obstructive pulmonary disease, and hypoxia. The patient is more confused than baseline. The daughter is well involved in her life. The patient has been noncompliant with medication and refused the medication. Today, she became more agitated, uncooperative, and "aggressive" with her nurse and not taking her medications. The patient has poor cognition, memory impairment, and easily agitated. During the evaluation, the patient stated that she does not need to take her medication. She is unable to understand, process, or appreciate information given to her in regards to her medical condition. PAST PSYCHIATRIC HISTORY: Includes history of cognitive impairment, anxiety, and depression. She has been noncompliant with medications. PAST MEDICAL HISTORY: Congestive heart failure, chronic obstructive pulmonary disease, pleural effusion, and SVT. ALLERGIES: No known drug allergies. SUBSTANCE ABUSE HISTORY: No history of illicit drug use or alcohol. MENTAL STATUS EXAMINATION: The patient is Citizen [place] speaking, , and agitated. She is alert and is able to follow commands. However, she is not answering the question nor being cooperative. Mood is agitated and angry. Affect is constricted. Congruent with mood. Thought process is disorganized. Thought content, positive for delusions. Cognition is impaired. Insight and judgment non-existent. ASSESSMENT: Hastings I Dementia, major depressive disorder. Hastings II Deferred. Hastings III As above. Hastings IV Low. PLAN: 1. The patient will be started on Ativan p.r.n. IV as she is refusing medications. The patient lacks capacity and refuse any medication and medical care. 2. We will start the patient on Ativan intravenous p.r.n. 3. We discussed the case with her daughter. The patient may refuse any medical care. The daughter should be the decision maker. 4. We will start the patient on Lexapro 10 mg in the morning. Jina Rouse M.D. DR: JJ JOB#: [id number] CC:
[2018-08-01 20:00] VITALS: BP 112/68
[2018-08-01] MEDS: LORazepam Inj 2mg/ml 1ml IV PRN (22:12)
[2018-08-02] VITALS: BP 100/63
--- NOTE | 2018-08-02 00:02 | Progress Note ---
DATE: 08/01/2018 CARDIOLOGY PROGRESS NOTE SUBJECTIVE: The patient remains on BiPAP support intermittently and at night. Diuresis is ongoing. She continues to have abdominal discomfort. Monitored rhythm sinus with atrial ectopics and nonsustained atrial arrhythmias. OBJECTIVE: VITAL SIGNS: Blood pressure 128/74, pulse 91, and respiratory rate 16. LUNGS: Diminished breath sounds. CARDIAC: Irregularly irregular. ABDOMEN: Soft with no focal tenderness. EXTREMITIES: Without edema. LABORATORY AND DIAGNOSTIC DATA: Yesterday, chest x-ray was notable for pulmonary vascular congestion. Blood cultures are negative. IMPRESSION: 1. Acute on chronic diastolic congestive heart failure. 2. Pulmonary hypertension. 3. Paroxysmal atrial tachyarrhythmias. 4. Acute on chronic respiratory acidosis. 5. Compensatory metabolic alkalosis. PLAN: 1. Continue acetazolamide. 2. Continue diuresis. 3. Advance diltiazem for arrhythmia suppression. 4. Agree with CT scan of the abdomen. 5. DVT prophylaxis. Alonzo Guidry M.D. DR: JEFFERSON JOB#: [id number] CC:
[2018-08-02 04:00] VITALS: BP 105/56
[2018-08-02 05:37] LABS: BASOPHILS % (AUTO) 0.3 % (0.0-2.0); EOSINOPHILS % (AUTO) 0.2 % (0.0-3.0); HEMATOCRIT 42.4 % (37.0-47.0); HEMOGLOBIN 14.8 G/DL (12.0-16.0); LYMPHOCYTES % (AUTO) 8.9 % (20.0-45.0); MEAN CORPUSCULAR VOLUME 89 FL (80-99); MONOCYTES % (AUTO) 8.1 % (1.0-10.0); NEUTROPHILS % (AUTO) 82.5 % (45.0-75.0); PLATELET COUNT 236 K/UL (150-450); RED BLOOD COUNT 4.75 M/UL (4.20-5.40); RED CELL DISTRIBUTION WIDTH 12.1 % (11.6-14.8); WHITE BLOOD COUNT 6.4 K/UL (4.8-10.8)
[2018-08-02] MEDS: dilTIAZem HCl 60mg tab ORAL SCH ×3 (06:00→20:41)
[2018-08-02 06:22] LABS: ALANINE AMINOTRANSFERASE 17 U/L (12-78); ALBUMIN 3.1 G/DL (3.4-5.0); ALBUMIN/GLOBULIN RATIO 0.9 (1.0-2.7); ALKALINE PHOSPHATASE 58 U/L (46-116); ANION GAP 3 mmol/L (5-15); ASPARTATE AMINO TRANSFERASE 18 U/L (15-37); BLOOD UREA NITROGEN 23 mg/dL (7-18); CARBON DIOXIDE 38 MMOL/L (21-32); CHLORIDE 92 MMOL/L (98-107); CREATININE 0.9 MG/DL (0.55-1.30); POTASSIUM 3.2 MMOL/L (3.5-5.1); SODIUM 133 MMOL/L (136-145)
[2018-08-02 08:00] VITALS: BP 108/49
--- NOTE | 2018-08-02 08:33 | General Progress Note ---
Assessment/Plan Problem List: (1) Abdominal pain ICD Codes: R10.9 - Unspecified abdominal pain SNOMED: 86306526 (2) Arrhythmia ICD Codes: I49.9 - Cardiac arrhythmia, unspecified SNOMED: 017493398 (3) Encephalopathy ICD Codes: G93.40 - Encephalopathy, unspecified SNOMED: 13969182 (4) COPD (chronic obstructive pulmonary disease) ICD Codes: J44.9 - Chronic obstructive pulmonary disease, unspecified SNOMED: 31958911 Qualifiers: Qualified Codes: J44.1 - Chronic obstructive pulmonary disease with (acute) exacerbation (5) CHF (congestive heart failure) ICD Codes: I50.9 - Heart failure, unspecified SNOMED: 59461708 Qualifiers: Qualified Codes: I50.43 - Acute on chronic combined systolic (congestive) and diastolic (congestive) heart failure Status: stable, progressing Assessment/Plan cont bipap resp rx diuresis ct abd when pulm status better monitor NA level with iv lasix monitor cxr Subjective ROS Limited/Unobtainable: No Constitutional: Reports: malaise, weakness HEENT: Reports: no symptoms Cardiovascular: Reports: no symptoms Respiratory: Reports: cough, shortness of breath Allergies: Coded Allergies: No Known Allergies (Unverified , 07/26/18) Subjective no events. remains on bipap. family concerned about pt abd pain. refused abd ct yesterday. Objective Last 24 Hour Vital Signs Date Time Temp Pulse Resp B/P (MAP) Pulse Ox O2 Delivery O2 Flow Rate FiO2 08/02/18 06:00 72 105/56 08/02/18 05:13 71 16 99 Facial 28 08/02/18 04:00 28 08/02/18 04:00 97.3 72 16 105/56 (72) 97 08/02/18 04:00 Nasal Cannula 2.0 08/02/18 03:33 80 08/02/18 02:36 79 16 98 Facial 28 08/02/18 00:54 64 17 99 Facial 28 08/02/18 00:00 98.3 82 16 100/63 (75) 99 08/02/18 00:00 Nasal Cannula 2.0 08/02/18 00:00 28 08/01/18 23:35 91 08/01/18 23:14 77 16 99 Facial 28 08/01/18 21:10 82 112/68 08/01/18 20:00 98.4 82 16 112/68 (83) 98 98 08/01/18 20:00 Nasal Cannula 2.0 08/01/18 20:00 2.0 08/01/18 19:43 88 08/01/18 19:01 98 Nasal Cannula 2.0 28 08/01/18 19:01 Nasal Cannula 2.0 28 08/01/18 16:00 91 08/01/18 16:00 2.0 08/01/18 16:00 98.4 99 20 134/93 (107) 97 97 08/01/18 16:00 Nasal Cannula 2.0 08/01/18 13:12 92 139/88 08/01/18 12:17 94 08/01/18 12:00 98.2 92 20 139/88 (105) 98 92 08/01/18 12:00 2.0 08/01/18 12:00 Nasal Cannula 2.0 08/01/18 09:56 128/74 Intake and Output 08/01/18 08/02/18 19:00 07:00 Intake Total 800 ml 50 ml Output Total 800 ml 300 ml Balance 0 ml -250 ml Intake Oral 800 ml 50 ml Output Urine Total 800 ml 300 ml Laboratory Tests 08/02/18 05:03: White Blood Count 6.4, Red Blood Count 4.75, Hemoglobin 14.8, Hematocrit 42.4, Mean Corpuscular Volume 89, Mean Corpuscular Hemoglobin 31.1H, Mean Corpuscular Hemoglobin Concent 34.8, Red Cell Distribution Width 12.1, Platelet Count 236, Mean Platelet Volume 6.2L, Neutrophils (%) (Auto) 82.5H, Lymphocytes (%) (Auto) 8.9L, Monocytes (%) (Auto) 8.1, Eosinophils (%) (Auto) 0.2, Basophils (%) (Auto ) 0.3, Sodium Level 133L, Potassium Level 3.2L, Chloride Level 92L, Carbon Dioxide Level 38H, Anion Gap 3L, Blood Urea Nitrogen 23H, Creatinine 0.9, Estimat Glomerular Filtration Rate , Glucose Level 119H, Calcium Level 9.0, Magnesium Level 2.0, Total Bilirubin 1.0, Aspartate Amino Transf (AST/SGOT) 18, Alanine Aminotransferase (ALT/SGPT) 17, Alkaline Phosphatase 58, Pro-B-Type Natriuretic Peptide 380H, Total Protein 6.7, Albumin 3.1L, Globulin 3.6, Albumin /Globulin Ratio 0.9L Height (Feet): 4 Height (Inches): 11.00 Weight (Pounds): 147 Objective General Appearance: WD/WN, alert Neck: supple Cardiovascular: regular rhythm Respiratory/Chest: chest wall non-tender, lungs clear, normal breath sounds Abdomen: normal bowel sounds, soft, no organomegaly, no mass Edema: no edema noted Arm (L), no edema noted Arm (R), no edema noted Leg (L), no edema noted Leg (R), no edema noted Pedal (L), no edema noted Pedal (R), no edema noted 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
[2018-08-02] MEDS: Heparin 5000 units/ml inj SUBQ SCH ×2 (09:18→20:41)
[2018-08-02 12:00] VITALS: BP 133/62
[2018-08-02] MEDS: Vitamin D 1000 IU Tab ORAL SCH (14:25)
[2018-08-02] MEDS: Losartan 25mg tab ORAL SCH (14:28)
[2018-08-02] MEDS: OTEZLA 30 MG ORAL SCH (14:29)
--- NOTE | 2018-08-02 15:02 | Diagnostic Imaging Report ---
EXAM: CT Abdomen and Pelvis Without Intravenous Contrast CLINICAL HISTORY: TRAUMA TECHNIQUE: Axial computed tomography images of the abdomen and pelvis without intravenous contrast. CTDI is 18.16 mGy and DLP is 830 mGy-cm. One or more of the following dose reduction techniques were used: automated exposure control, adjustment of the mA and/or kV according to patient size, use of iterative reconstruction technique. COMPARISON: No relevant prior studies available. FINDINGS: Lung bases: See below. Pleural space: Tiny left pleural effusion. Bibasilar lung atelectasis. Heart: Cardiomegaly. ABDOMEN: Liver: 8 mm low-density lesion left lobe of the liver. Gallbladder and bile ducts: Distended gallbladder. No calcified stones. No ductal dilation. Pancreas: Unremarkable. No ductal dilation. Spleen: Unremarkable. No splenomegaly. Adrenals: Mild fullness of the left adrenal gland. Kidneys and ureters: 2 cm left renal cyst. Mild bilateral perinephric stranding. No obstructing stones. No hydronephrosis. Stomach and bowel: Thickening of the distal stomach. No obstruction. PELVIS: Appendix: No findings to suggest acute appendicitis. Bladder: Unremarkable. No stones. Reproductive: Uterus and adnexa unremarkable. ABDOMEN and PELVIS: Intraperitoneal space: Unremarkable. No free air. No significant fluid collection. Bones/joints: Low grade 1 anterolisthesis of L4 and L5. No acute fracture. No dislocation. Soft tissues: Small fat-containing anterior pelvic wall ventral hernia. Bilateral subcutaneous calcified granulomas. Vasculature: Atherosclerotic vascular disease. No abdominal aortic aneurysm. Lymph nodes: Unremarkable. No enlarged lymph nodes. IMPRESSION: 1. No acute traumatic injury. 2. Distended gallbladder. 3. Tiny left pleural effusion. Bibasilar lung atelectasis. 4. Thickening of the distal stomach, likely due to underdistention.
--- NOTE | 2018-08-02 15:10 | Cardiology Report ---
APPROVED REPORT EKG Measurement Heart [id number] UT 160P [id number] Sinus rhythm with premature atrial complexes Rightward axis Abnormal ECG
[2018-08-02 16:00] VITALS: BP 135/63
--- NOTE | 2018-08-02 16:47 | Progress Note ---
DATE: 08/02/2018 CARDIOLOGY PROGRESS NOTE SUBJECTIVE: The patient's cardiac rhythm has been reviewed. She continues to have multifocal atrial tachycardia and frequent atrial ectopy. No evidence of sustained atrial fibrillation. She remains on BiPAP support. She has occasional abdominal pain. CT scan is pending. PHYSICAL EXAMINATION: VITAL SIGNS: Blood pressure 133/62, pulse 83, respiratory rate 19, and afebrile. LUNGS: Diminished breath sounds. HEART: Irregularly irregular rhythm. Normal S1, S2. ABDOMEN: diffuse tenderness. No guarding. EXTREMITIES: No edema. LABORATORY DATA: White count 6.4, hemoglobin 14.8. Sodium 133, potassium 3.2, bicarb 38, BUN 23, creatinine 0.9. Pro natriuretic peptide down to 380. IMPRESSION: 1. Acute on chronic diastolic congestive heart failure, improved. 2. Acute on chronic respiratory acidosis with compensatory metabolic alkalosis, improving on acetazolamide. 3. Paroxysmal atrial tachyarrhythmias, rate controlled now. PLAN: 1. Continue diltiazem. 2. Cautious diuresis. 3. Maintain acetazolamide. 4. Likely transition is from IV to oral furosemide over the next 1 to 2 days. 5. Continue cardiac monitoring and respiratory hygiene. 6. Await abdominal CT scan. Alonzo Guidry M.D. DR: Fernando JOB#: [id number] CC:
[2018-08-02] MEDS ORDERED: Ipratropium 0.02% Inh Soln 2.5ml UD HHN PRN (18:30)
[2018-08-02] MEDS: Ipratropium 0.02% Inh Soln 2.5ml UD HHN SCH (18:49)
[2018-08-02 20:00] VITALS: BP 106/57
--- NOTE | 2018-08-02 20:11 | Pulmonology Progress Note ---
Assessment/Plan Assessment/Plan Pulmonary Progress Note Reason for Admission: Respiratory failure. HISTORY OF PRESENT ILLNESS: This is an 87-year-old female who was just discharged from the hospital. The patient noted to have worsening respiratory distress once again and now readmitted. The patient noted to be more altered and was noted to have CO2 retention. The patient's care discussed and reviewed. The patient admitted to [facility]. The patient was without any associated symptoms. She just recently acquired oxygen at home. The patient with failure to thrive overall. The patient did improve previously with Lasix. Events were fairly acute. The patient was brought in by family. PAST MEDICAL HISTORY: Notable for acute on chronic respiratory failure, troponin leak, acute on chronic diastolic congestive heart failure, chronic hypoxemia, COPD, pulmonary hypertension, cardiomegaly, paroxysmal atrial dysrhythmias, arthritis, prior history of alcohol use. SOCIAL HISTORY: She lives with family. Quit smoking years ago. History of alcohol previously. The patient is retired. FAMILY HISTORY: Otherwise noncontributory to the above. REVIEW OF SYSTEMS: All 10 points reviewed and otherwise negative. PHYSICAL EXAMINATION: GENERAL: A well-developed female, comfortable, mildly short of breath. VITAL SIGNS NOTED HEENT: Negative. Extraocular movements are grossly intact. NECK: Supple. LUNGS: Coarse breath sounds reduced. CARDIAC: Normal S1 and S2. Occasional ectopy. No murmurs or rubs. ABDOMEN: Soft, nontender, obese. EXTREMITIES: No cyanosis or clubbing. There is mild edema. NEUROLOGICAL: Grossly nonfocal, but with reduced mental status. LABORATORY DATA: Arterial blood gas 7.29/94/70. Sodium 138, potassium 4.3, chloride 94, bicarbonate 43, BUN 13, creatinine 0.6. Hematology notable for white count 5.8 and platelets of 238. X-ray is suggestive of perihilar edema. IMPRESSION: 1. Acute on chronic respiratory failure. 2. Chronic obstructive pulmonary disease. 3. Congestive heart failure, acute on chronic, chronic hypoxemia, chronic hypercapnia. 4. Pulmonary hypertension. 5. Significant metabolic alkalosis. RECOMMENDATION: 1. BiPAP management for now. 2. Oxygen therapy for now. 3. Intravenous diuresis. 4. Resume home medication. 5. Of note, the patient has chronic respiratory failure due to underlying COPD and congestive heart failure. BiPAP is not sufficient and will need to order Trilogy NIV for AVAPS-AE mouthpiece ventilation support. Trilogy will reduce the work of breathing and reduce CO2 retention. For now continue as is. 6. DVT prophylaxis and monitor clinically for further changes and interventions and we will optimize and discharge the patient back home with home health once improved. Subjective ROS Limited/Unobtainable: No Allergies: Coded Allergies: No Known Allergies (Unverified , 07/26/18) Objective Last 24 Hour Vital Signs Date Time Temp Pulse Resp B/P (MAP) Pulse Ox O2 Delivery O2 Flow Rate FiO2 08/02/18 18:58 Nasal Cannula 2.0 28 08/02/18 18:58 97 Nasal Cannula 2.0 28 08/02/18 18:57 86 18 98 Nasal Cannula 2.0 28 08/02/18 18:50 87 20 97 Nasal Cannula 2.0 28 08/02/18 16:43 96 08/02/18 16:13 2.0 08/02/18 16:13 Nasal Cannula 2.0 08/02/18 16:00 97.9 85 19 135/63 (87) 97 08/02/18 14:28 133/62 08/02/18 14:25 81 133/62 08/02/18 12:30 81 08/02/18 12:00 96.6 83 19 133/62 (85) 97 08/02/18 12:00 Nasal Cannula 2.0 08/02/18 12:00 2.0 08/02/18 09:03 76 08/02/18 08:03 98 Nasal Cannula 2.0 28 08/02/18 08:03 Nasal Cannula 2.0 28 08/02/18 08:00 96.4 83 19 108/49 (68) 100 08/02/18 08:00 Nasal Cannula 2.0 08/02/18 08:00 2.0 08/02/18 06:00 72 105/56 08/02/18 05:13 71 16 99 Facial 28 08/02/18 04:00 28 08/02/18 04:00 97.3 72 16 105/56 (72) 97 08/02/18 04:00 Nasal Cannula 2.0 08/02/18 03:33 80 08/02/18 02:36 79 16 98 Facial 28 08/02/18 00:54 64 17 99 Facial 28 08/02/18 00:00 98.3 82 16 100/63 (75) 99 08/02/18 00:00 Nasal Cannula 2.0 08/02/18 00:00 28 08/01/18 23:35 91 08/01/18 23:14 77 16 99 Facial 28 08/01/18 21:10 82 112/68 Intake and Output 08/01/18 08/02/18 19:00 07:00 Intake Total 800 ml 50 ml Output Total 800 ml 300 ml Balance 0 ml -250 ml Intake Oral 800 ml 50 ml Output Urine Total 800 ml 300 ml Laboratory Tests 08/02/18 05:03: White Blood Count 6.4, Red Blood Count 4.75, Hemoglobin 14.8, Hematocrit 42.4, Mean Corpuscular Volume 89, Mean Corpuscular Hemoglobin 31.1H, Mean Corpuscular Hemoglobin Concent 34.8, Red Cell Distribution Width 12.1, Platelet Count 236, Mean Platelet Volume 6.2L, Neutrophils (%) (Auto) 82.5H, Lymphocytes (%) (Auto) 8.9L, Monocytes (%) (Auto) 8.1, Eosinophils (%) (Auto) 0.2, Basophils (%) (Auto ) 0.3, Sodium Level 133L, Potassium Level 3.2L, Chloride Level 92L, Carbon Dioxide Level 38H, Anion Gap 3L, Blood Urea Nitrogen 23H, Creatinine 0.9, Estimat Glomerular Filtration Rate , Glucose Level 119H, Calcium Level 9.0, Magnesium Level 2.0, Total Bilirubin 1.0, Aspartate Amino Transf (AST/SGOT) 18, Alanine Aminotransferase (ALT/SGPT) 17, Alkaline Phosphatase 58, Pro-B-Type Natriuretic Peptide 380H, Total Protein 6.7, Albumin 3.1L, Globulin 3.6, Albumin /Globulin Ratio 0.9L Current Medications Medications (Trade) Dose Ordered Sig/Bijal Route PRN Reason Start Time Stop Time Status Last Admin Dose Admin Acetaminophen (Tylenol) 650 mg Q4H PRN ORAL Mild Pain/Temp > 100.5 07/30/18 22:00 08/29/18 21:59 07/31/18 03:10 Acetazolamide (Diamox) 250 mg TWICE A DAY ORAL 08/01/18 09:00 08/31/18 08:59 08/02/18 17:57 Al Hydroxide/Mg Hydroxide (Mylanta) 30 ml Q4H PRN ORAL DYSPEPSIA 07/30/18 22:15 08/29/18 21:59 07/31/18 01:00 Albuterol Sulfate (Proventil) 2.5 mg Q4HRT PRN HHN Shortness of Breath 07/30/18 22:00 08/04/18 21:59 Barium Sulfate (Readi-Cat 2) 450 ml NOW PRN ORAL Radiology Procedure 08/01/18 09:30 08/03/18 09:22 Diltiazem HCl (Cardizem) 60 mg EVERY 8 HOURS ORAL 08/02/18 06:00 09/01/18 05:59 08/02/18 14:25 Escitalopram Oxalate (Lexapro) 10 mg DAILY ORAL 08/01/18 12:04 08/31/18 12:03 08/02/18 14:24 Famotidine (Pepcid) 10 mg DAILY ORAL 07/31/18 09:00 08/30/18 08:59 08/02/18 14:24 Furosemide (Lasix) 40 mg DAILY ORAL 08/04/18 09:00 09/03/18 08:59 Heparin Sodium (Porcine) (Heparin 5000 units/ml) 5,000 units EVERY 12 HOURS SUBQ 07/31/18 09:00 08/30/18 08:59 08/02/18 09:18 Ipratropium [place] (Atrovent) 500 mcg Q6H PRN HHN Shortness of Breath 08/02/18 18:30 08/07/18 18:29 Ipratropium [place] (Atrovent) 500 mcg TIDRT HHN 08/02/18 19:00 08/07/18 18:59 08/02/18 18:49 Lorazepam (Ativan 2mg/ml 1ml) 1 mg Q6H PRN IV For Anxiety 08/01/18 12:15 08/08/18 12:14 08/01/18 22:12 Losartan Potassium (Cozaar) 50 mg DAILY ORAL 07/31/18 09:00 08/30/18 08:59 08/02/18 14:28 Magnesium Hydroxide (Mom) 30 ml DAILYPRN PRN ORAL Constipation 07/30/18 22:00 08/29/18 21:59 Pantoprazole (Protonix) 40 mg DAILY ORAL 08/02/18 09:00 09/01/18 08:59 08/02/18 14:24 Patient Own Medication (Patient's Own Med) 1 ea DAILY ORAL 08/01/18 11:31 08/31/18 11:30 08/02/18 14:29 Tramadol HCl (Ultram) 50 mg Q6H PRN ORAL pain 07/31/18 05:45 08/07/18 05:44 07/31/18 21:21 Vitamin D (Vitamin D) 1,000 intlu DAILY ORAL 07/31/18 09:00 08/30/18 08:59 08/02/18 14:25 Alonzo Vizcarra MD Aug 02, 2018 20:11
[2018-08-02] MEDS: LORazepam Inj 2mg/ml 1ml IV PRN (21:06)
[2018-08-03] VITALS: BP 122/64
[2018-08-03 04:00] VITALS: BP 139/61
[2018-08-03] MEDS: dilTIAZem HCl 60mg tab ORAL SCH ×3 (05:22→20:57)
[2018-08-03 05:41] LABS: ALANINE AMINOTRANSFERASE 22 U/L (12-78); ALBUMIN 3.3 G/DL (3.4-5.0); ALBUMIN/GLOBULIN RATIO 0.8 (1.0-2.7); ALKALINE PHOSPHATASE 66 U/L (46-116); ANION GAP 4 mmol/L (5-15); ASPARTATE AMINO TRANSFERASE 27 U/L (15-37); BILIRUBIN,TOTAL 0.9 MG/DL (0.2-1.0); BLOOD UREA NITROGEN 27 mg/dL (7-18); CALCIUM 9.1 MG/DL (8.5-10.1); CARBON DIOXIDE 38 MMOL/L (21-32); CHLORIDE 90 MMOL/L (98-107); CREATININE 0.8 MG/DL (0.55-1.30); POTASSIUM 3.4 MMOL/L (3.5-5.1); SODIUM 132 MMOL/L (136-145)
[2018-08-03 08:00] VITALS: BP 127/60
[2018-08-03] MEDS: Ipratropium 0.02% Inh Soln 2.5ml UD HHN SCH ×3 (08:02→20:10)
[2018-08-03] MEDS: Losartan 25mg tab ORAL SCH (08:37)
[2018-08-03] MEDS: Vitamin D 1000 IU Tab ORAL SCH (08:37)
[2018-08-03] MEDS: Heparin 5000 units/ml inj SUBQ SCH ×2 (08:39→20:59)
[2018-08-03] MEDS: OTEZLA 30 MG ORAL SCH (08:40)
--- NOTE | 2018-08-03 11:51 | General Progress Note ---
Assessment/Plan Problem List: (1) Abdominal pain ICD Codes: R10.9 - Unspecified abdominal pain SNOMED: 33959421 (2) Arrhythmia ICD Codes: I49.9 - Cardiac arrhythmia, unspecified SNOMED: 437668547 (3) Encephalopathy ICD Codes: G93.40 - Encephalopathy, unspecified SNOMED: 60433555 (4) COPD (chronic obstructive pulmonary disease) ICD Codes: J44.9 - Chronic obstructive pulmonary disease, unspecified SNOMED: 28217392 Qualifiers: Qualified Codes: J44.1 - Chronic obstructive pulmonary disease with (acute) exacerbation (5) CHF (congestive heart failure) ICD Codes: I50.9 - Heart failure, unspecified SNOMED: 66544559 Qualifiers: Qualified Codes: I50.43 - Acute on chronic combined systolic (congestive) and diastolic (congestive) heart failure Status: stable, progressing Assessment/Plan cont bipap as needed resp rx diuresis monitor labs surgery eval regarding distended GB Subjective ROS Limited/Unobtainable: No Constitutional: Reports: malaise, weakness HEENT: Reports: no symptoms Cardiovascular: Reports: no symptoms Respiratory: Reports: no symptoms Gastrointestinal/Abdominal: Reports: no symptoms Genitourinary: Reports: no symptoms Neurologic/Psychiatric: Reports: no symptoms Endocrine: Reports: no symptoms Hematologic/Lymphatic: Reports: no symptoms Allergies: Coded Allergies: No Known Allergies (Unverified , 07/26/18) All Systems: reviewed and negative except above Subjective no events. remains on bipap. family concerned about pt abd pain. CT noted- distended GB. denies pain Objective Last 24 Hour Vital Signs Date Time Temp Pulse Resp B/P (MAP) Pulse Ox O2 Delivery O2 Flow Rate FiO2 08/03/18 09:00 2.0 08/03/18 08:37 127/60 08/03/18 08:03 79 08/03/18 08:00 98.2 84 20 127/60 (82) 94 08/03/18 08:00 Nasal Cannula 2.0 08/03/18 07:58 96 20 97 Nasal Cannula 2.0 28 08/03/18 07:51 93 20 96 Nasal Cannula 2.0 28 08/03/18 07:51 Nasal Cannula 2.0 28 08/03/18 07:51 97 Nasal Cannula 2.0 28 08/03/18 05:22 81 139/81 08/03/18 04:54 77 15 98 Facial 28 08/03/18 04:00 93 08/03/18 04:00 97.9 81 18 139/61 (87) 94 08/03/18 04:00 Nasal Cannula 2.0 08/03/18 04:00 2.0 08/03/18 02:42 79 16 95 Facial 28 08/03/18 00:45 78 19 96 Facial 28 08/03/18 00:00 97.7 87 20 122/64 (83) 95 08/03/18 00:00 77 08/03/18 00:00 Nasal Cannula 2.0 08/02/18 23:11 82 16 99 Facial 28 08/02/18 20:41 83 106/57 08/02/18 20:00 97.7 83 20 106/57 (73) 98 08/02/18 20:00 2.0 08/02/18 20:00 Nasal Cannula 2.0 08/02/18 19:38 81 08/02/18 18:58 Nasal Cannula 2.0 28 08/02/18 18:58 97 Nasal Cannula 2.0 28 08/02/18 18:57 86 18 98 Nasal Cannula 2.0 28 08/02/18 18:50 87 20 97 Nasal Cannula 2.0 28 08/02/18 16:43 96 08/02/18 16:13 2.0 08/02/18 16:13 Nasal Cannula 2.0 08/02/18 16:00 97.9 85 19 135/63 (87) 97 08/02/18 14:28 133/62 08/02/18 14:25 81 133/62 08/02/18 12:30 81 08/02/18 12:00 96.6 83 19 133/62 (85) 97 08/02/18 12:00 Nasal Cannula 2.0 08/02/18 12:00 2.0 Intake and Output 08/02/18 08/03/18 19:00 07:00 Intake Total 720 ml 0 ml Output Total 450 ml 250 ml Balance 270 ml -250 ml Intake Oral 720 ml 0 ml Output Urine Total 450 ml 250 ml Laboratory Tests 08/03/18 04:15: Sodium Level 132L, Potassium Level 3.4L, Chloride Level 90L, Carbon Dioxide Level 38H, Anion Gap 4L, Blood Urea Nitrogen 27H, Creatinine 0.8, Estimat Glomerular Filtration Rate , Glucose Level 105, Calcium Level 9.1, Magnesium Level 2.1, Total Bilirubin 0.9, Aspartate Amino Transf (AST/SGOT) 27, Alanine Aminotransferase (ALT/SGPT) 22, Alkaline Phosphatase 66, Total Protein 7.4, Albumin 3.3L, Globulin 4.1, Albumin/Globulin Ratio 0.8L Height (Feet): 4 Height (Inches): 11.00 Weight (Pounds): 147 Objective General Appearance: WD/WN, alert Neck: supple Cardiovascular: regular rhythm Respiratory/Chest: chest wall non-tender, lungs clear, normal breath sounds Abdomen: normal bowel sounds, soft, no organomegaly, no mass Edema: no edema noted Arm (L), no edema noted Arm (R), no edema noted Leg (L), no edema noted Leg (R), no edema noted Pedal (L), no edema noted Pedal (R), no edema noted Generalized Neurologic: hands and dial inspector II-XII grossly normal, alert, oriented x 3, responsive Jai Reddy MD Aug 03, 2018 11:51
--- NOTE | 2018-08-03 11:53 | Pulmonology Progress Note ---
Assessment/Plan Assessment/Plan Pulmonary Progress Note Reason for Admission: Respiratory failure. HISTORY OF PRESENT ILLNESS: This is an 87-year-old female who was just discharged from the hospital. The patient noted to have worsening respiratory distress once again and now readmitted. The patient noted to be more altered and was noted to have CO2 retention. The patient's care discussed and reviewed. The patient admitted to [facility]. The patient was without any associated symptoms. She just recently acquired oxygen at home. The patient with failure to thrive overall. The patient did improve previously with Lasix. Events were fairly acute. The patient was brought in by family. PAST MEDICAL HISTORY: Notable for acute on chronic respiratory failure, troponin leak, acute on chronic diastolic congestive heart failure, chronic hypoxemia, COPD, pulmonary hypertension, cardiomegaly, paroxysmal atrial dysrhythmias, arthritis, prior history of alcohol use. SOCIAL HISTORY: She lives with family. Quit smoking years ago. History of alcohol previously. The patient is retired. FAMILY HISTORY: Otherwise noncontributory to the above. REVIEW OF SYSTEMS: All 10 points reviewed and otherwise negative. PHYSICAL EXAMINATION: GENERAL: A well-developed female, comfortable, mildly short of breath. VITAL SIGNS NOTED HEENT: Negative. Extraocular movements are grossly intact. NECK: Supple. LUNGS: Coarse breath sounds reduced. CARDIAC: Normal S1 and S2. Occasional ectopy. No murmurs or rubs. ABDOMEN: Soft, nontender, obese. EXTREMITIES: No cyanosis or clubbing. There is mild edema. NEUROLOGICAL: Grossly nonfocal, but with reduced mental status. LABORATORY DATA: Arterial blood gas 7.29/94/70. Sodium 138, potassium 4.3, chloride 94, bicarbonate 43, BUN 13, creatinine 0.6. Hematology notable for white count 5.8 and platelets of 238. X-ray is suggestive of perihilar edema. IMPRESSION: 1. Acute on chronic respiratory failure. 2. Chronic obstructive pulmonary disease. 3. Congestive heart failure, acute on chronic, chronic hypoxemia, chronic hypercapnia. 4. Pulmonary hypertension. 5. Significant metabolic alkalosis. RECOMMENDATION: 1. BiPAP management for now. 2. Oxygen therapy for now. 3. Intravenous diuresis. 4. Resume home medication. 5. Of note, the patient has chronic respiratory failure due to underlying COPD and congestive heart failure. BiPAP is not sufficient and will need to order Trilogy NIV for AVAPS-AE mouthpiece ventilation support. Trilogy will reduce the work of breathing and reduce CO2 retention. For now continue as is. 6. DVT prophylaxis and monitor clinically for further changes and interventions and we will optimize and discharge the patient back home with home health once improved. Subjective ROS Limited/Unobtainable: No Allergies: Coded Allergies: No Known Allergies (Unverified , 07/26/18) Objective Last 24 Hour Vital Signs Date Time Temp Pulse Resp B/P (MAP) Pulse Ox O2 Delivery O2 Flow Rate FiO2 08/03/18 09:00 2.0 08/03/18 08:37 127/60 08/03/18 08:03 79 08/03/18 08:00 98.2 84 20 127/60 (82) 94 08/03/18 08:00 Nasal Cannula 2.0 08/03/18 07:58 96 20 97 Nasal Cannula 2.0 28 08/03/18 07:51 93 20 96 Nasal Cannula 2.0 28 08/03/18 07:51 Nasal Cannula 2.0 28 08/03/18 07:51 97 Nasal Cannula 2.0 28 08/03/18 05:22 81 139/81 08/03/18 04:54 77 15 98 Facial 28 08/03/18 04:00 93 08/03/18 04:00 97.9 81 18 139/61 (87) 94 08/03/18 04:00 Nasal Cannula 2.0 08/03/18 04:00 2.0 08/03/18 02:42 79 16 95 Facial 28 08/03/18 00:45 78 19 96 Facial 28 08/03/18 00:00 97.7 87 20 122/64 (83) 95 08/03/18 00:00 77 08/03/18 00:00 Nasal Cannula 2.0 08/02/18 23:11 82 16 99 Facial 28 08/02/18 20:41 83 106/57 08/02/18 20:00 97.7 83 20 106/57 (73) 98 08/02/18 20:00 2.0 08/02/18 20:00 Nasal Cannula 2.0 08/02/18 19:38 81 08/02/18 18:58 Nasal Cannula 2.0 28 08/02/18 18:58 97 Nasal Cannula 2.0 28 08/02/18 18:57 86 18 98 Nasal Cannula 2.0 28 08/02/18 18:50 87 20 97 Nasal Cannula 2.0 28 08/02/18 16:43 96 08/02/18 16:13 2.0 08/02/18 16:13 Nasal Cannula 2.0 08/02/18 16:00 97.9 85 19 135/63 (87) 97 08/02/18 14:28 133/62 08/02/18 14:25 81 133/62 08/02/18 12:30 81 08/02/18 12:00 96.6 83 19 133/62 (85) 97 08/02/18 12:00 Nasal Cannula 2.0 08/02/18 12:00 2.0 Intake and Output 08/02/18 08/03/18 19:00 07:00 Intake Total 720 ml 0 ml Output Total 450 ml 250 ml Balance 270 ml -250 ml Intake Oral 720 ml 0 ml Output Urine Total 450 ml 250 ml Laboratory Tests 08/03/18 04:15: Sodium Level 132L, Potassium Level 3.4L, Chloride Level 90L, Carbon Dioxide Level 38H, Anion Gap 4L, Blood Urea Nitrogen 27H, Creatinine 0.8, Estimat Glomerular Filtration Rate , Glucose Level 105, Calcium Level 9.1, Magnesium Level 2.1, Total Bilirubin 0.9, Aspartate Amino Transf (AST/SGOT) 27, Alanine Aminotransferase (ALT/SGPT) 22, Alkaline Phosphatase 66, Total Protein 7.4, Albumin 3.3L, Globulin 4.1, Albumin/Globulin Ratio 0.8L Current Medications Medications (Trade) Dose Ordered Sig/Bijal Route PRN Reason Start Time Stop Time Status Last Admin Dose Admin Acetaminophen (Tylenol) 650 mg Q4H PRN ORAL Mild Pain/Temp > 100.5 07/30/18 22:00 08/29/18 21:59 07/31/18 03:10 Acetazolamide (Diamox) 250 mg TWICE A DAY ORAL 08/01/18 09:00 08/31/18 08:59 08/03/18 08:39 Al Hydroxide/Mg Hydroxide (Mylanta) 30 ml Q4H PRN ORAL DYSPEPSIA 07/30/18 22:15 08/29/18 21:59 07/31/18 01:00 Albuterol Sulfate (Proventil) 2.5 mg Q4HRT PRN HHN Shortness of Breath 07/30/18 22:00 08/04/18 21:59 Diltiazem HCl (Cardizem) 60 mg EVERY 8 HOURS ORAL 08/02/18 06:00 09/01/18 05:59 08/03/18 05:22 Escitalopram Oxalate (Lexapro) 10 mg DAILY ORAL 08/01/18 12:04 08/31/18 12:03 08/03/18 08:37 Famotidine (Pepcid) 10 mg DAILY ORAL 07/31/18 09:00 08/30/18 08:59 08/03/18 08:37 Furosemide (Lasix) 40 mg DAILY ORAL 08/04/18 09:00 09/03/18 08:59 Heparin Sodium (Porcine) (Heparin 5000 units/ml) 5,000 units EVERY 12 HOURS SUBQ 07/31/18 09:00 08/30/18 08:59 08/03/18 08:39 Ipratropium [place] (Atrovent) 500 mcg Q6H PRN HHN Shortness of Breath 08/02/18 18:30 08/07/18 18:29 Ipratropium [place] (Atrovent) 500 mcg TIDRT HHN 08/02/18 19:00 08/07/18 18:59 08/03/18 08:02 Lorazepam (Ativan 2mg/ml 1ml) 1 mg Q6H PRN IV For Anxiety 08/01/18 12:15 08/08/18 12:14 08/02/18 21:06 Losartan Potassium (Cozaar) 50 mg DAILY ORAL 07/31/18 09:00 08/30/18 08:59 08/03/18 08:37 Magnesium Hydroxide (Mom) 30 ml DAILYPRN PRN ORAL Constipation 07/30/18 22:00 08/29/18 21:59 Pantoprazole (Protonix) 40 mg DAILY ORAL 08/02/18 09:00 09/01/18 08:59 08/03/18 08:37 Patient Own Medication (Patient's Own Med) 1 ea DAILY ORAL 08/01/18 11:31 08/31/18 11:30 08/03/18 08:40 Tramadol HCl (Ultram) 50 mg Q6H PRN ORAL pain 07/31/18 05:45 08/07/18 05:44 07/31/18 21:21 Vitamin D (Vitamin D) 1,000 intlu DAILY ORAL 07/31/18 09:00 08/30/18 08:59 08/03/18 08:37 Alonzo Vizcarra MD Aug 03, 2018 11:53
[2018-08-03 12:00] VITALS: BP 113/48
[2018-08-03 16:00] VITALS: BP 114/42
--- NOTE | 2018-08-03 19:16 | Progress Note ---
DATE: 08/01/2018 CARDIOLOGY PROGRESS NOTE SUBJECTIVE: The patient's condition remains tenuous. She continues to have abdominal pain. CAT scan is notable for distended gallbladder. Surgical evaluation is pending. OBJECTIVE: VITAL SIGNS: Blood pressure is 127/60, pulse 79, respirations 20, and afebrile. RESPIRATORY: Bilateral breath sounds. Few rhonchi. No wheezing. HEART: Irregularly irregular rhythm. Normal S1, S2. ABDOMEN: Slightly distended and diffusely tender. There is no rebound. EXTREMITIES: Without edema. LABORATORY DATA: Sodium 132, potassium 3.4, bicarbonate 38, BUN 27, and creatinine 0.8. Albumin 3.3. IMPRESSIONS: 1. Chronic obstructive pulmonary disease with exacerbation. 2. Acute on chronic respiratory failure. 3. Acute on chronic respiratory acidosis. 4. Compensatory metabolic alkalosis. 5. Acute on chronic diastolic congestive heart failure, now compensated. 6. Prerenal azotemia due to diuresis and steroids. 7. Pulmonary hypertension severe and due to underlying lung disease. 8. Possible acute cholecystitis with abdominal distention. 9. Multifocal atrial tachycardia and atrial arrhythmias. PLAN: 1. Respiratory hygiene. 2. BiPAP as needed. 3. Hold furosemide, diuresis. 4. Continue acetazolamide for respiratory drive stimulation. 5. Oxygen as needed. 6. DVT and stress ulcer prophylaxes. 7. Cardizem for suppression of atrial arrhythmias. Alonzo Guidry M.D. DR: YOON JOB#: [id number] CC:
[2018-08-03 20:00] VITALS: BP 100/62
[2018-08-04] VITALS: BP 115/71
[2018-08-04] MEDS: traMADol 50mg tab ORAL PRN (01:01)
[2018-08-04 04:00] VITALS: BP 117/60
[2018-08-04 04:36] LABS: BASOPHILS % (AUTO) 0.7 % (0.0-2.0); EOSINOPHILS % (AUTO) 0.4 % (0.0-3.0); HEMATOCRIT 43.1 % (37.0-47.0); HEMOGLOBIN 14.4 G/DL (12.0-16.0); LYMPHOCYTES % (AUTO) 10.4 % (20.0-45.0); MEAN CORPUSCULAR VOLUME 90 FL (80-99); MONOCYTES % (AUTO) 12.3 % (1.0-10.0); NEUTROPHILS % (AUTO) 76.2 % (45.0-75.0); PLATELET COUNT 213 K/UL (150-450); RED BLOOD COUNT 4.78 M/UL (4.20-5.40); RED CELL DISTRIBUTION WIDTH 12.1 % (11.6-14.8)
[2018-08-04 04:53] LABS: ALANINE AMINOTRANSFERASE 20 U/L (12-78); ALBUMIN/GLOBULIN RATIO 0.8 (1.0-2.7); ALKALINE PHOSPHATASE 59 U/L (46-116); ANION GAP 4 mmol/L (5-15); ASPARTATE AMINO TRANSFERASE 24 U/L (15-37); BLOOD UREA NITROGEN 31 mg/dL (7-18); CALCIUM 8.9 MG/DL (8.5-10.1); CARBON DIOXIDE 36 MMOL/L (21-32); CHLORIDE 93 MMOL/L (98-107); CREATININE 0.8 MG/DL (0.55-1.30); POTASSIUM 3.6 MMOL/L (3.5-5.1); SODIUM 133 MMOL/L (136-145)
[2018-08-04] MEDS: dilTIAZem HCl 60mg tab ORAL SCH ×3 (05:42→21:51)
[2018-08-04] MEDS: Ipratropium 0.02% Inh Soln 2.5ml UD HHN SCH ×3 (07:11→19:30)
--- NOTE | 2018-08-04 07:24 | General Progress Note ---
Assessment/Plan Problem List: (1) Abdominal pain ICD Codes: R10.9 - Unspecified abdominal pain SNOMED: 92889912 (2) Arrhythmia ICD Codes: I49.9 - Cardiac arrhythmia, unspecified SNOMED: 356042044 (3) Encephalopathy ICD Codes: G93.40 - Encephalopathy, unspecified SNOMED: 65789067 (4) COPD (chronic obstructive pulmonary disease) ICD Codes: J44.9 - Chronic obstructive pulmonary disease, unspecified SNOMED: 03625514 Qualifiers: Qualified Codes: J44.1 - Chronic obstructive pulmonary disease with (acute) exacerbation (5) CHF (congestive heart failure) ICD Codes: I50.9 - Heart failure, unspecified SNOMED: 52899453 Qualifiers: Qualified Codes: I50.43 - Acute on chronic combined systolic (congestive) and diastolic (congestive) heart failure Status: stable, progressing Assessment/Plan cont bipap as needed compliance stressed resp rx diuresis monitor labs surgery eval regarding distended GB consider hida Subjective ROS Limited/Unobtainable: No Constitutional: Reports: malaise, weakness HEENT: Reports: no symptoms Cardiovascular: Reports: no symptoms Respiratory: Reports: no symptoms Gastrointestinal/Abdominal: Reports: abdominal pain Genitourinary: Reports: no symptoms Neurologic/Psychiatric: Reports: no symptoms Endocrine: Reports: no symptoms Hematologic/Lymphatic: Reports: no symptoms Allergies: Coded Allergies: No Known Allergies (Unverified , 07/26/18) All Systems: reviewed and negative except above Subjective no events. refusing bipap. family concerned about pt abd pain. CT noted- distended GB. denies pain. surgery eval pending. Objective Last 24 Hour Vital Signs Date Time Temp Pulse Resp B/P (MAP) Pulse Ox O2 Delivery O2 Flow Rate FiO2 08/04/18 07:12 87 22 100 Nasal Cannula 2.0 28 08/04/18 07:11 Nasal Cannula 2.0 28 08/04/18 07:11 99 Nasal Cannula 2.0 28 08/04/18 07:04 73 22 98 Nasal Cannula 2.0 28 08/04/18 05:42 78 117/60 08/04/18 04:00 98.4 78 14 117/60 (79) 100 08/04/18 04:00 2.0 08/04/18 04:00 Nasal Cannula 2.0 08/04/18 03:20 77 08/04/18 01:40 71 18 95 Facial 28 08/04/18 00:00 98.4 76 20 115/71 (86) 97 08/04/18 00:00 Nasal Cannula 2.0 08/03/18 23:26 79 17 98 Facial 28 08/03/18 23:20 82 08/03/18 23:00 28 08/03/18 21:59 Nasal Cannula 2.0 28 08/03/18 20:57 86 100/62 08/03/18 20:16 89 20 100 Nasal Cannula 2.0 28 08/03/18 20:07 75 20 93 Nasal Cannula 2.0 28 08/03/18 20:06 98 Nasal Cannula 2.0 28 08/03/18 20:00 Nasal Cannula 2.0 08/03/18 20:00 2.0 08/03/18 20:00 98.2 86 20 100/62 (75) 98 08/03/18 19:30 98 08/03/18 16:00 2.0 08/03/18 16:00 98.6 95 17 114/42 (66) 99 08/03/18 16:00 Nasal Cannula 2.0 08/03/18 15:24 83 08/03/18 13:58 94 113/48 08/03/18 13:41 94 16 100 Nasal Cannula 2.0 28 08/03/18 13:28 80 18 93 Nasal Cannula 2.0 28 08/03/18 12:00 98.0 66 19 113/48 (69) 97 08/03/18 12:00 2.0 08/03/18 12:00 Nasal Cannula 2.0 08/03/18 11:55 75 08/03/18 09:00 2.0 08/03/18 08:37 127/60 08/03/18 08:03 79 08/03/18 08:00 98.2 84 20 127/60 (82) 94 08/03/18 08:00 Nasal Cannula 2.0 08/03/18 07:58 96 20 97 Nasal Cannula 2.0 28 08/03/18 07:51 93 20 96 Nasal Cannula 2.0 28 08/03/18 07:51 Nasal Cannula 2.0 28 08/03/18 07:51 97 Nasal Cannula 2.0 28 Intake and Output 08/03/18 08/04/18 18:59 06:59 Intake Total 50 ml 50 ml Output Total 150 ml 350 ml Balance -100 ml -300 ml Intake Oral 50 ml 50 ml Output Urine Total 150 ml 350 ml Laboratory Tests 08/03/18 17:48: Arterial Blood pH 7.363, Arterial Blood Partial Pressure CO2 65.9*H, Arterial Blood Partial Pressure O2 76.1, Arterial Blood HCO3 36.6H, Arterial Blood Oxygen Saturation 95.3, Arterial Blood Base Excess 8.6H, Luis Alfredo Test Positive 08/04/18 04:02: White Blood Count 8.0, Red Blood Count 4.78, Hemoglobin 14.4, Hematocrit 43.1, Mean Corpuscular Volume 90, Mean Corpuscular Hemoglobin 30.0, Mean Corpuscular Hemoglobin Concent 33.3, Red Cell Distribution Width 12.1, Platelet Count 213, Mean Platelet Volume 7.0, Neutrophils (%) (Auto) 76.2H, Lymphocytes (%) (Auto) 10.4L, Monocytes (%) (Auto) 12.3H, Eosinophils (%) (Auto) 0.4, Basophils (%) ( Auto) 0.7, Sodium Level 133L, Potassium Level 3.6, Chloride Level 93L, Carbon Dioxide Level 36H, Anion Gap 4L, Blood Urea Nitrogen 31H, Creatinine 0.8, Estimat Glomerular Filtration Rate , Glucose Level 99, Calcium Level 8.9, Magnesium Level 2.3, Total Bilirubin 1.0, Aspartate Amino Transf (AST/SGOT) 24, Alanine Aminotransferase (ALT/SGPT) 20, Alkaline Phosphatase 59, Pro-B-Type Natriuretic Peptide 287H, Total Protein 6.8, Albumin 3.0L, Globulin 3.8, Albumin /Globulin Ratio 0.8L Height (Feet): 4 Height (Inches): 11.00 Weight (Pounds): 147 Objective General Appearance: WD/WN, alert Neck: supple Cardiovascular: regular rhythm Respiratory/Chest: chest wall non-tender, lungs clear, normal breath sounds Abdomen: normal bowel sounds, soft, no organomegaly, no mass Edema: no edema noted Arm (L), no edema noted Arm (R), no edema noted Leg (L), no edema noted Leg (R), no edema noted Pedal (L), no edema noted Pedal (R), no edema noted 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 MD Aug 04, 2018 07:23
[2018-08-04 08:00] VITALS: BP 120/48
--- NOTE | 2018-08-04 08:32 | Pulmonology Progress Note ---
Assessment/Plan Assessment/Plan 1. Acute on chronic respiratory failure. 2. Chronic obstructive pulmonary disease. 3. Congestive heart failure, acute on chronic, chronic hypoxemia, chronic hypercapnia. 4. Pulmonary hypertension. 5. Significant metabolic alkalosis. 6. dementia 7. depression 8. Hypercapnia 9. distended gallbladder PLAN surgical evaluation BIPAP trilogy for home use oxygen at home d/w family obtain clearance from all and proceed with dc planning impression, plan, and exam edited and reviewed in detail care discussed with RN Subjective Allergies: Coded Allergies: No Known Allergies (Unverified , 07/26/18) Subjective weekend events noted comfortable abdominal CT noted Objective Last 24 Hour Vital Signs Date Time Temp Pulse Resp B/P (MAP) Pulse Ox O2 Delivery O2 Flow Rate FiO2 08/04/18 07:12 87 22 100 Nasal Cannula 2.0 28 08/04/18 07:11 Nasal Cannula 2.0 28 08/04/18 07:11 99 Nasal Cannula 2.0 28 08/04/18 07:04 73 22 98 Nasal Cannula 2.0 28 08/04/18 05:42 78 117/60 08/04/18 04:00 98.4 78 14 117/60 (79) 100 08/04/18 04:00 2.0 08/04/18 04:00 Nasal Cannula 2.0 08/04/18 03:20 77 08/04/18 01:40 71 18 95 Facial 28 08/04/18 00:00 98.4 76 20 115/71 (86) 97 08/04/18 00:00 Nasal Cannula 2.0 08/03/18 23:26 79 17 98 Facial 28 08/03/18 23:20 82 08/03/18 23:00 28 08/03/18 21:59 Nasal Cannula 2.0 28 08/03/18 20:57 86 100/62 08/03/18 20:16 89 20 100 Nasal Cannula 2.0 28 08/03/18 20:07 75 20 93 Nasal Cannula 2.0 08/03/18 20:06 98 Nasal Cannula 2.0 28 08/03/18 20:00 Nasal Cannula 2.0 08/03/18 20:00 2.0 08/03/18 20:00 98.2 86 20 100/62 (75) 98 08/03/18 19:30 98 08/03/18 16:00 2.0 08/03/18 16:00 98.6 95 17 114/42 (66) 99 08/03/18 16:00 Nasal Cannula 2.0 08/03/18 15:24 83 08/03/18 13:58 94 113/48 08/03/18 13:41 94 16 100 Nasal Cannula 2.0 28 08/03/18 13:28 80 18 93 Nasal Cannula 2.0 28 08/03/18 12:00 98.0 66 19 113/48 (69) 97 08/03/18 12:00 2.0 08/03/18 12:00 Nasal Cannula 2.0 08/03/18 11:55 75 08/03/18 09:00 2.0 08/03/18 08:37 127/60 Intake and Output 08/03/18 08/04/18 18:59 06:59 Intake Total 50 ml 50 ml Output Total 150 ml 350 ml Balance -100 ml -300 ml Intake Oral 50 ml 50 ml Output Urine Total 150 ml 350 ml Objective WDWN NAD reduced breath sounds bilaterally without rhonchi or wheeze [id number] without MRG NABS nontender no distention no CCE DJD nonfocal Laboratory Tests 08/03/18 17:48: Arterial Blood pH 7.363, Arterial Blood Partial Pressure CO2 65.9*H, Arterial Blood Partial Pressure O2 76.1, Arterial Blood HCO3 36.6H, Arterial Blood Oxygen Saturation 95.3, Arterial Blood Base Excess 8.6H, Luis Alfredo Test Positive 08/04/18 04:02: White Blood Count 8.0, Red Blood Count 4.78, Hemoglobin 14.4, Hematocrit 43.1, Mean Corpuscular Volume 90, Mean Corpuscular Hemoglobin 30.0, Mean Corpuscular Hemoglobin Concent 33.3, Red Cell Distribution Width 12.1, Platelet Count 213, Mean Platelet Volume 7.0, Neutrophils (%) (Auto) 76.2H, Lymphocytes (%) (Auto) 10.4L, Monocytes (%) (Auto) 12.3H, Eosinophils (%) (Auto) 0.4, Basophils (%) ( Auto) 0.7, Sodium Level 133L, Potassium Level 3.6, Chloride Level 93L, Carbon Dioxide Level 36H, Anion Gap 4L, Blood Urea Nitrogen 31H, Creatinine 0.8, Estimat Glomerular Filtration Rate , Glucose Level 99, Calcium Level 8.9, Magnesium Level 2.3, Total Bilirubin 1.0, Aspartate Amino Transf (AST/SGOT) 24, Alanine Aminotransferase (ALT/SGPT) 20, Alkaline Phosphatase 59, Pro-B-Type Natriuretic Peptide 287H, Total Protein 6.8, Albumin 3.0L, Globulin 3.8, Albumin /Globulin Ratio 0.8L Current Medications Medications (Trade) Dose Ordered Sig/Bijal Route PRN Reason Start Time Stop Time Status Last Admin Dose Admin Acetaminophen (Tylenol) 650 mg Q4H PRN ORAL Mild Pain/Temp > 100.5 07/30/18 22:00 08/29/18 21:59 07/31/18 03:10 Acetazolamide (Diamox) 250 mg TWICE A DAY ORAL 08/01/18 09:00 08/31/18 08:59 08/03/18 17:24 Al Hydroxide/Mg Hydroxide (Mylanta) 30 ml Q4H PRN ORAL DYSPEPSIA 07/30/18 22:15 08/29/18 21:59 07/31/18 01:00 Albuterol Sulfate (Proventil) 2.5 mg Q4HRT PRN HHN Shortness of Breath 07/30/18 22:00 08/04/18 21:59 Diltiazem HCl (Cardizem) 60 mg EVERY 8 HOURS ORAL 08/02/18 06:00 09/01/18 05:59 08/03/18 05:22 Escitalopram Oxalate (Lexapro) 10 mg DAILY ORAL 08/01/18 12:04 08/31/18 12:03 08/03/18 08:37 Famotidine (Pepcid) 10 mg DAILY ORAL 07/31/18 09:00 08/30/18 08:59 08/03/18 08:37 Heparin Sodium (Porcine) (Heparin 5000 units/ml) 5,000 units EVERY 12 HOURS SUBQ 07/31/18 09:00 08/30/18 08:59 08/03/18 20:59 Ipratropium [place] (Atrovent) 500 mcg Q6H PRN HHN Shortness of Breath 08/02/18 18:30 08/07/18 18:29 Ipratropium [place] (Atrovent) 500 mcg TIDRT HHN 08/02/18 19:00 08/07/18 18:59 08/04/18 07:11 Losartan Potassium (Cozaar) 50 mg DAILY ORAL 07/31/18 09:00 08/30/18 08:59 08/03/18 08:37 Magnesium Hydroxide (Mom) 30 ml DAILYPRN PRN ORAL Constipation 07/30/18 22:00 08/29/18 21:59 08/03/18 22:48 Pantoprazole (Protonix) 40 mg DAILY ORAL 08/02/18 09:00 09/01/18 08:59 08/03/18 08:37 Patient Own Medication (Patient's Own Med) 1 ea DAILY ORAL 08/01/18 11:31 08/31/18 11:30 08/03/18 08:40 Tramadol HCl (Ultram) 50 mg Q6H PRN ORAL pain 07/31/18 05:45 08/07/18 05:44 08/04/18 01:01 Vitamin D (Vitamin D) 1,000 intlu DAILY ORAL 07/31/18 09:00 08/30/18 08:59 08/03/18 08:37 Phil Mario MD Aug 04, 2018 08:32
[2018-08-04] MEDS ORDERED: Furosemide 40mg tab ORAL SCH (09:00)
[2018-08-04] MEDS: Losartan 25mg tab ORAL SCH (09:10)
[2018-08-04] MEDS: Vitamin D 1000 IU Tab ORAL SCH (09:11)
[2018-08-04] MEDS: OTEZLA 30 MG ORAL SCH (09:11)
[2018-08-04] MEDS: Heparin 5000 units/ml inj SUBQ SCH ×2 (09:13→21:51)
--- NOTE | 2018-08-04 10:59 | Cardiology Report ---
APPROVED REPORT EXAM: Two-dimensional and M-mode echocardiogram with Doppler and color Doppler. INDICATION Arrhythmia M-Mode DIMENSIONS IVSd1.4 (0.7-1.1cm)Left Atrium (MM)4.0 (1.6-4.0cm) LVDd4.4 (3.5-5.6cm)Aortic Root3.0 (2.0-3.7cm) PWd1.2 (0.7-1.1cm)Aortic Cusp Exc.1.5 (1.5-2.0cm) LVDs2.6 (2.5-4.0cm) PWs1.9 cm Technically difficult study due to poor acoustic windows. Study quality precludes accurate assessment of regional wall motion. Normal left ventricular chamber size, systolic function and wall motion. Left ventricular ejection fraction estimated to be 55 %. Mild left ventricular hypertrophy. Anterior Echo-free space, may be due to pericardial fat or effusion. All other cardiac chamber sizes are within normal limits. Mild focal aortic valve sclerosis with adequate cusp excursion. Mildly thickened mitral valve leaflets with normal excursion. Mild mitral annulus and aortic root calcification. Pulmonic valve not well visualized. Normal tricuspid valve structure. IVC is normal in size with physiological collapse. A color flow and spectral Doppler study was performed and revealed: No aortic insufficiency. No mitral regurgitation. Mitral diastolic velocities suggest mild left ventricular diastolic dysfunction (Grade I). Trace tricuspid regurgitation. Tricuspid systolic velocities suggests peak right ventricular systolic pressure of 34 mmHg. No pulmonic regurgitation present.
[2018-08-04] MEDS ORDERED: traMADol 50mg tab ORAL PRN (11:45)
[2018-08-04 12:00] VITALS: BP 108/57
[2018-08-04] MEDS ORDERED: Milk of Magnesia 30ml Ud ORAL PRN (12:15)
[2018-08-04] MEDS ORDERED: Albuterol ud Inhalation HHN PRN (12:15)
[2018-08-04] MEDS ORDERED: Albuterol/Ipratropium 3ml neb HHN PRN (12:15)
[2018-08-04] MEDS ORDERED: Ipratropium 0.02% Inh Soln 2.5ml UD HHN PRN (12:30)
[2018-08-04 16:00] VITALS: BP 104/51
[2018-08-04 20:00] VITALS: BP 120/50
--- NOTE | 2018-08-04 20:17 | Consultation ---
History of Present Illness General Date patient seen: Aug 04, 2018 Chief Complaint: Dyspnea/Respdistress Reason for Consultation: r/o cholecystitis Present Illness HPI 87 year old female with multiple medical comorbidities recently hospitalized for respiratory insufficiency. currently under medical care and management. please refer to H&P for details. During admission had CT scan A/P which demonstrated distended GB. patient drowsy and exam difficult but did states she has some abdominal pain. surgery called to evaluate for possible cholecystitis. patient seen, chart reviewed, patient examined. currently much improved and resting comfortable. awake and responsive. denies pain. no n/v/f /c. states she is hungry. Allergies: Coded Allergies: No Known Allergies (Unverified , 07/26/18) Medication History Scheduled Apremilast (Otezla), 30 MG PO DAILY, (Reported) Cholecalciferol (Vitamin D3)* (Vitamin D*), 5,000 UNITS ORAL weekly, (Reported) Losartan Potassium (Losartan Potassium), 50 MG PO DAILY, (Reported) Ranitidine Hcl* (Zantac*), 300 MG ORAL DAILY, (Reported) Patient History History Provided By: Patient, Family Member, Medical Record, PMD Healthcare decision maker Resuscitation status Advanced Directive on File Past Medical/Surgical History Past Medical/Surgical History: (1) COPD (chronic obstructive pulmonary disease) (2) CHF (congestive heart failure) (3) Respiratory failure (4) Pleural effusion, left (5) Dyspnea (6) Respiratory distress (7) Arrhythmia (8) Encephalopathy (9) Abdominal pain Review of Systems All Other Systems: negative except mentioned in HPI Physical Exam General Appearance: no apparent distress, alert Lines, tubes and drains: peripheral HEENT: mucous membranes moist Neck: normal inspection Respiratory/Chest: no respiratory distress, no accessory muscle use Cardiovascular/Chest: normal rate, regular rhythm Abdomen: normal bowel sounds, non tender, soft, no organomegaly, no mass Extremities: normal inspection Skin Exam: warm/dry Neurologic: alert, responsive Last 24 Hour Vital Signs Date Time Temp Pulse Resp B/P (MAP) Pulse Ox O2 Delivery O2 Flow Rate FiO2 08/04/18 19:41 82 20 98 Nasal Cannula 2.0 28 08/04/18 19:30 Nasal Cannula 2.0 28 08/04/18 19:30 88 18 Nasal Cannula 2.0 28 11/12/18 19:30 88 18 95 Nasal Cannula 2.0 28 08/04/18 19:30 95 Nasal Cannula 2.0 28 08/04/18 16:00 85 08/04/18 16:00 97.9 76 20 104/51 (68) 94 08/04/18 16:00 2.0 28 08/04/18 14:35 88 20 99 Nasal Cannula 2.0 28 08/04/18 14:13 68 16 95 Nasal Cannula 4.0 08/04/18 14:00 101 98/48 08/04/18 12:00 2.0 28 08/04/18 12:00 93 08/04/18 12:00 98.0 83 18 108/57 (74) 100 08/04/18 12:00 2.0 28 08/04/18 09:10 120/48 08/04/18 08:00 82 08/04/18 08:00 2.0 08/04/18 08:00 97.3 81 22 120/48 (72) 100 08/04/18 08:00 Nasal Cannula 2.0 08/04/18 07:12 87 22 100 Nasal Cannula 2.0 28 08/04/18 07:11 Nasal Cannula 2.0 28 08/04/18 07:11 99 Nasal Cannula 2.0 28 08/04/18 07:04 73 22 98 Nasal Cannula 2.0 28 08/04/18 05:42 78 117/60 08/04/18 04:00 98.4 78 14 117/60 (79) 100 08/04/18 04:00 2.0 08/04/18 04:00 Nasal Cannula 2.0 08/04/18 03:20 77 08/04/18 01:40 71 18 95 Facial 28 08/04/18 00:00 98.4 76 20 115/71 (86) 97 08/04/18 00:00 Nasal Cannula 2.0 08/03/18 23:26 79 17 98 Facial 28 08/03/18 23:20 82 08/03/18 23:00 28 08/03/18 21:59 Nasal Cannula 2.0 28 08/03/18 20:57 86 100/62 08/03/18 20:16 89 20 100 Nasal Cannula 2.0 28 Intake and Output 08/03/18 08/04/18 19:00 07:00 Intake Total 50 ml 50 ml Output Total 150 ml 350 ml Balance -100 ml -300 ml Intake Oral 50 ml 50 ml Output Urine Total 150 ml 350 ml Laboratory Tests Test 08/04/18 04:02 White Blood Count 8.0 K/UL (4.8-10.8) Red Blood Count 4.78 M/UL (4.20-5.40) Hemoglobin 14.4 G/DL (12.0-16.0) Hematocrit 43.1 % (37.0-47.0) Mean Corpuscular Volume 90 FL (80-99) Mean Corpuscular Hemoglobin 30.0 PG (27.0-31.0) Mean Corpuscular Hemoglobin Concent 33.3 G/DL (32.0-36.0) Red Cell Distribution Width 12.1 % (11.6-14.8) Platelet Count 213 K/UL (150-450) Mean Platelet Volume 7.0 FL (6.5-10.1) Neutrophils (%) (Auto) 76.2 % (45.0-75.0) H Lymphocytes (%) (Auto) 10.4 % (20.0-45.0) L Monocytes (%) (Auto) 12.3 % (1.0-10.0) H Eosinophils (%) (Auto) 0.4 % (0.0-3.0) Basophils (%) (Auto) 0.7 % (0.0-2.0) Sodium Level 133 MMOL/L (136-145) L Potassium Level 3.6 MMOL/L (3.5-5.1) Chloride Level 93 MMOL/L (98-107) L Carbon Dioxide Level 36 MMOL/L (21-32) H Anion Gap 4 mmol/L (5-15) L Blood Urea Nitrogen 31 mg/dL (7-18) H Creatinine 0.8 MG/DL (0.55-1.30) Estimat Glomerular Filtration Rate mL/min (>60) Glucose Level 99 MG/DL (74-106) Calcium Level 8.9 MG/DL (8.5-10.1) Magnesium Level 2.3 MG/DL (1.8-2.4) Total Bilirubin 1.0 MG/DL (0.2-1.0) Aspartate Amino Transf (AST/SGOT) 24 U/L (15-37) Alanine Aminotransferase (ALT/SGPT) 20 U/L (12-78) Alkaline Phosphatase 59 U/L (46-116) Pro-B-Type Natriuretic Peptide 287 pg/mL (0-125) H Total Protein 6.8 G/DL (6.4-8.2) Albumin 3.0 G/DL (3.4-5.0) L Globulin 3.8 g/dL Albumin/Globulin Ratio 0.8 (1.0-2.7) L Height (Feet): 4 Height (Inches): 11.00 Weight (Pounds): 147 Medications Current Medications Medications (Trade) Dose Ordered Sig/Bijal Route PRN Reason Start Time Stop Time Status Last Admin Dose Admin Acetaminophen (Tylenol) 650 mg Q4H PRN ORAL Mild Pain/Temp > 100.5 08/04/18 14:00 08/29/18 21:59 Acetazolamide (Diamox) 250 mg TWICE A DAY ORAL 08/04/18 18:00 08/31/18 08:59 08/04/18 18:49 Al Hydroxide/Mg Hydroxide (Mylanta) 30 ml Q4H PRN ORAL DYSPEPSIA 08/04/18 12:15 08/29/18 12:14 Albuterol/ Ipratropium (Albuterol/ Ipratropium) 3 ml Q4H PRN HHN Shortness of Breath 08/04/18 12:15 08/09/18 12:14 Diltiazem HCl (Cardizem) 60 mg EVERY 8 HOURS ORAL 08/04/18 14:00 09/01/18 05:59 Escitalopram Oxalate (Lexapro) 10 mg DAILY ORAL 08/05/18 09:00 08/31/18 12:03 Famotidine (Pepcid) 10 mg DAILY ORAL 08/05/18 09:00 08/30/18 08:59 Heparin Sodium (Porcine) (Heparin 5000 units/ml) 5,000 units EVERY 12 HOURS SUBQ 08/04/18 21:00 08/30/18 08:59 Ipratropium [place] (Atrovent) 500 mcg TIDRT HHN 08/04/18 13:00 08/07/18 18:59 08/04/18 19:30 Losartan Potassium (Cozaar) 50 mg DAILY ORAL 08/05/18 09:00 08/30/18 08:59 Magnesium Hydroxide (Mom) 30 ml DAILYPRN PRN ORAL Constipation 08/04/18 12:15 08/29/18 12:14 Pantoprazole (Protonix) 40 mg DAILY ORAL 08/05/18 09:00 09/01/18 08:59 Patient Own Medication (Patient's Own Med) 1 ea DAILY ORAL 08/05/18 09:00 08/31/18 11:30 Tramadol HCl (Ultram) 50 mg Q6H PRN ORAL Moderate Pain (Pain Scale 4-6) 08/04/18 11:45 08/07/18 05:44 Vitamin D (Vitamin D) 1,000 intlu DAILY ORAL 08/05/18 09:00 08/30/18 08:59 Assessment/Plan Problem List: (1) Abdominal pain Assessment & Plan: abdominal pain, drowsy, CT with distended gallbladder, no leukocytosis, lft's okay. Ultrasound ordered and just completed. pending read. clinically stable and no signs or symptoms of acute cholecystitis. likely gallbladder distention physiological from being NPO. pain has resolved. no n/v// f/c -advance diet as tolerated -no surgical intervention planned -okay to d/c from surgical standpoint -thank you for allowing me to participate in patients care. ICD Codes: R10.9 - Unspecified abdominal pain SNOMED: 45963129 Qualifiers: Qualified Codes: R10.84 - Generalized abdominal pain Status: stable KyaBon Aug 04, 2018 20:17
[2018-08-05] VITALS: BP 119/59
--- NOTE | 2018-08-05 02:46 | Progress Note ---
DATE: 08/04/2018 CARDIOLOGY PROGRESS NOTE SUBJECTIVE: The patient remains with respiratory distress. Still with abdominal pain. Still refusing BiPAP. OBJECTIVE: VITAL SIGNS: Blood pressure 117/60, pulse 78, respiratory rate 14 to 22, the patient remains afebrile, and oxygen saturation on two liters is 95% to 100%. LUNGS: Diminished breath sounds. HEART: Irregular rhythm. Normal S1, S2. ABDOMEN: Soft. Mildly tender diffusely. EXTREMITIES: No edema. LABORATORY DATA: White count 8, hemoglobin 14.4. Sodium 133, potassium 3.6, bicarbonate 36, BUN 31, creatinine 0.8, glucose 99, and magnesium 2.3. Pro-natriuretic peptide 287. Albumin 3. IMPRESSION: 1. No clinical signs of acute cholecystitis. 2. Multifocal atrial tachycardia, rate controlled. 3. Chronic obstructive pulmonary disease. 4. Pulmonary hypertension, secondary to obstructive lung disease. 5. Diastolic dysfunction with compensated congestive heart failure. PLAN: 1. Maintain diltiazem. 2. Maintenance diuretic dosing. 3. Respiratory hygiene. Alonzo Guidry M.D. DR: YOON JOB#: [id number] CC:
[2018-08-05 04:00] VITALS: BP 111/59
[2018-08-05] MEDS: dilTIAZem HCl 60mg tab ORAL SCH (06:09)
--- NOTE | 2018-08-05 06:29 | General Progress Note ---
Assessment/Plan Problem List: (1) Abdominal pain ICD Codes: R10.9 - Unspecified abdominal pain SNOMED: 46410640 Qualifiers: Qualified Codes: R10.84 - Generalized abdominal pain (2) Arrhythmia ICD Codes: I49.9 - Cardiac arrhythmia, unspecified SNOMED: 404873591 (3) Encephalopathy ICD Codes: G93.40 - Encephalopathy, unspecified SNOMED: 59772217 (4) COPD (chronic obstructive pulmonary disease) ICD Codes: J44.9 - Chronic obstructive pulmonary disease, unspecified SNOMED: 66033452 Qualifiers: Qualified Codes: J44.1 - Chronic obstructive pulmonary disease with (acute) exacerbation (5) CHF (congestive heart failure) ICD Codes: I50.9 - Heart failure, unspecified SNOMED: 88037530 Qualifiers: Qualified Codes: I50.43 - Acute on chronic combined systolic (congestive) and diastolic (congestive) heart failure Status: stable, progressing Assessment/Plan cont bipap as needed triology ordered by pulm compliance stressed resp rx diuresis monitor labs ok to dc from med standpoint Subjective ROS Limited/Unobtainable: No Constitutional: Reports: malaise, weakness HEENT: Reports: no symptoms Cardiovascular: Reports: no symptoms Respiratory: Reports: cough Gastrointestinal/Abdominal: Reports: no symptoms Genitourinary: Reports: no symptoms Neurologic/Psychiatric: Reports: no symptoms Endocrine: Reports: no symptoms Hematologic/Lymphatic: Reports: no symptoms Allergies: Coded Allergies: No Known Allergies (Unverified , 07/26/18) All Systems: reviewed and negative except above Subjective no events. refusing bipap(used for 1-2 hrs last night). surgery appreciated. denies cp/sob. no abd pain. Objective Last 24 Hour Vital Signs Date Time Temp Pulse Resp B/P (MAP) Pulse Ox O2 Delivery O2 Flow Rate FiO2 08/05/18 06:09 77 111/59 08/05/18 04:00 2.0 08/05/18 04:00 97.2 84 18 111/59 (76) 96 08/05/18 01:00 70 18 98 08/05/18 00:00 2.0 28 08/05/18 00:00 98.1 77 16 119/59 (79) 95 08/04/18 22:32 77 18 99 Facial 28 08/04/18 21:51 77 120/50 08/04/18 21:00 Nasal Cannula 2.0 08/04/18 20:00 2.0 08/04/18 20:00 97.0 89 20 120/50 (73) 90 08/04/18 20:00 81 08/04/18 19:41 82 20 98 Nasal Cannula 2.0 28 08/04/18 19:30 Nasal Cannula 2.0 28 08/04/18 19:30 88 18 Nasal Cannula 2.0 28 08/04/18 19:30 88 18 95 Nasal Cannula 2.0 28 08/04/18 19:30 95 Nasal Cannula 2.0 28 08/04/18 16:00 85 08/04/18 16:00 97.9 76 20 104/51 (68) 94 08/04/18 16:00 2.0 28 08/04/18 14:35 88 20 99 Nasal Cannula 2.0 28 08/04/18 14:13 68 16 95 Nasal Cannula 4.0 08/04/18 14:00 101 98/48 08/04/18 12:00 2.0 28 08/04/18 12:00 93 08/04/18 12:00 98.0 83 18 108/57 (74) 100 08/04/18 12:00 2.0 28 08/04/18 09:10 120/48 08/04/18 08:00 82 08/04/18 08:00 2.0 08/04/18 08:00 97.3 81 22 120/48 (72) 100 08/04/18 08:00 Nasal Cannula 2.0 08/04/18 07:12 87 22 100 Nasal Cannula 2.0 28 08/04/18 07:11 Nasal Cannula 2.0 28 08/04/18 07:11 99 Nasal Cannula 2.0 28 08/04/18 07:04 73 22 98 Nasal Cannula 2.0 28 Intake and Output 08/04/18 08/05/18 19:00 07:00 # Voids 1 2 # Bowel Movements 2 Laboratory Tests 08/05/18 06:00: White Blood Count [Pending], Red Blood Count [Pending], Hemoglobin [Pending], Hematocrit [Pending], Mean Corpuscular Volume [Pending], Mean Corpuscular Hemoglobin [Pending], Mean Corpuscular Hemoglobin Concent [Pending], Red Cell Distribution Width [Pending], Platelet Count [Pending], Mean Platelet Volume [ Pending], Neutrophils (%) (Auto) [Pending], Lymphocytes (%) (Auto) [Pending], Monocytes (%) (Auto) [Pending], Eosinophils (%) (Auto) [Pending], Basophils (%) (Auto) [Pending], Sodium Level [Pending], Potassium Level [Pending], Chloride Level [Pending], Carbon Dioxide Level [Pending], Blood Urea Nitrogen [Pending], Creatinine [Pending], Estimat Glomerular Filtration Rate [Pending], Glucose Level [Pending], Calcium Level [Pending], Total Bilirubin [Pending], Aspartate Amino Transf (AST/SGOT) [Pending], Alanine Aminotransferase (ALT/SGPT) [Pending] , Alkaline Phosphatase [Pending], Total Protein [Pending], Albumin [Pending], Globulin [Pending] Height (Feet): 4 Height (Inches): 11.00 Weight (Pounds): 147 Objective General Appearance: WD/WN, alert Neck: supple Cardiovascular: regular rhythm Respiratory/Chest: chest wall non-tender, lungs clear, normal breath sounds Abdomen: normal bowel sounds, soft, no organomegaly, no mass Edema: no edema noted Arm (L), no edema noted Arm (R), no edema noted Leg (L), no edema noted Leg (R), no edema noted Pedal (L), no edema noted Pedal (R), no edema noted Generalized Neurologic: fisher terrapin II-XII grossly normal, alert, oriented x 3, responsive Jai Reddy MD Aug 05, 2018 06:28
[2018-08-05 06:32] LABS: BASOPHILS % (AUTO) 0.6 % (0.0-2.0); EOSINOPHILS % (AUTO) 0.8 % (0.0-3.0); HEMATOCRIT 44.3 % (37.0-47.0); HEMOGLOBIN 14.6 G/DL (12.0-16.0); MEAN CORPUSCULAR VOLUME 91 FL (80-99); MONOCYTES % (AUTO) 13.1 % (1.0-10.0); NEUTROPHILS % (AUTO) 70.4 % (45.0-75.0); PLATELET COUNT 210 K/UL (150-450); RED BLOOD COUNT 4.89 M/UL (4.20-5.40); RED CELL DISTRIBUTION WIDTH 12.1 % (11.6-14.8); WHITE BLOOD COUNT 6.9 K/UL (4.8-10.8)
[2018-08-05 07:02] LABS: ALBUMIN 2.9 G/DL (3.4-5.0); ALBUMIN/GLOBULIN RATIO 0.8 (1.0-2.7); ALKALINE PHOSPHATASE 61 U/L (46-116); ANION GAP 6 mmol/L (5-15); ASPARTATE AMINO TRANSFERASE 17 U/L (15-37); BILIRUBIN,TOTAL 0.9 MG/DL (0.2-1.0); BLOOD UREA NITROGEN 36 mg/dL (7-18); CARBON DIOXIDE 31 MMOL/L (21-32); CHLORIDE 96 MMOL/L (98-107); CREATININE 0.7 MG/DL (0.55-1.30); POTASSIUM 3.5 MMOL/L (3.5-5.1); SODIUM 133 MMOL/L (136-145)
[2018-08-05 07:13] LABS: ALANINE AMINOTRANSFERASE 22 U/L (12-78)
[2018-08-05] MEDS: Ipratropium 0.02% Inh Soln 2.5ml UD HHN SCH ×2 (07:55→13:13)
[2018-08-05 08:00] VITALS: BP 132/61
[2018-08-05] MEDS ORDERED: Losartan 25mg tab ORAL SCH (09:00)
[2018-08-05] MEDS ORDERED: Vitamin D 1000 IU Tab ORAL SCH (09:00)
[2018-08-05] MEDS: Heparin 5000 units/ml inj SUBQ SCH (09:18)
--- NOTE | 2018-08-05 09:34 | Pulmonology Progress Note ---
Assessment/Plan Assessment/Plan 1. Acute on chronic respiratory failure. 2. Chronic obstructive pulmonary disease. 3. Congestive heart failure, acute on chronic, chronic hypoxemia, chronic hypercapnia. 4. Pulmonary hypertension. 5. Significant metabolic alkalosis. 6. dementia 7. depression 8. Hypercapnia 9. distended gallbladder PLAN surgical evaluation noted and awaiting US for clearing BIPAP trilogy for home use ordered and rady to be delivered oxygen at home d/w family obtain clearance from all and proceed with dc planning hope today impression, plan, and exam edited and reviewed in detail care discussed with RN Subjective ROS Limited/Unobtainable: Yes Allergies: Coded Allergies: No Known Allergies (Unverified , 07/26/18) Subjective awaiting Us comfortable abdominal CT noted Objective Last 24 Hour Vital Signs Date Time Temp Pulse Resp B/P (MAP) Pulse Ox O2 Delivery O2 Flow Rate FiO2 08/05/18 09:10 132/61 08/05/18 08:00 2.0 08/05/18 08:00 97.5 72 20 132/61 (84) 96 08/05/18 07:58 Nasal Cannula 08/05/18 07:58 96 Nasal Cannula 2.0 28 08/05/18 07:58 Nasal Cannula 08/05/18 07:58 Nasal Cannula 2.0 28 08/05/18 06:09 77 111/59 08/05/18 04:00 2.0 08/05/18 04:00 81 08/05/18 04:00 97.2 84 18 111/59 (76) 96 08/05/18 01:00 70 18 98 08/05/18 00:00 2.0 28 08/05/18 00:00 76 08/05/18 00:00 98.1 77 16 119/59 (79) 95 08/04/18 22:32 77 18 99 Facial 28 08/04/18 21:51 77 120/50 08/04/18 21:00 Nasal Cannula 2.0 08/04/18 20:00 2.0 08/04/18 20:00 97.0 89 20 120/50 (73) 90 08/04/18 20:00 81 08/04/18 19:41 82 20 98 Nasal Cannula 2.0 28 08/04/18 19:30 Nasal Cannula 2.0 28 08/04/18 19:30 88 18 Nasal Cannula 2.0 28 08/04/18 19:30 88 18 95 Nasal Cannula 2.0 28 08/04/18 19:30 95 Nasal Cannula 2.0 28 08/04/18 16:00 85 08/04/18 16:00 97.9 76 20 104/51 (68) 94 08/04/18 16:00 2.0 28 08/04/18 14:35 88 20 99 Nasal Cannula 2.0 28 08/04/18 14:13 68 16 95 Nasal Cannula 4.0 08/04/18 14:00 101 98/48 08/04/18 12:00 2.0 28 08/04/18 12:00 93 08/04/18 12:00 98.0 83 18 108/57 (74) 100 08/04/18 12:00 2.0 28 Intake and Output 08/04/18 08/05/18 19:00 07:00 # Voids 1 2 # Bowel Movements 2 Objective WDWN NAD reduced breath sounds bilaterally without rhonchi or wheeze [id number] without MRG NABS nontender no distention no CCE DJD nonfocal Laboratory Tests 08/05/18 06:00: White Blood Count 6.9, Red Blood Count 4.89, Hemoglobin 14.6, Hematocrit 44.3, Mean Corpuscular Volume 91, Mean Corpuscular Hemoglobin 29.9, Mean Corpuscular Hemoglobin Concent 33.0, Red Cell Distribution Width 12.1, Platelet Count 210, Mean Platelet Volume 6.8, Neutrophils (%) (Auto) 70.4, Lymphocytes (%) (Auto) 15.0L, Monocytes (%) (Auto) 13.1H, Eosinophils (%) (Auto) 0.8, Basophils (%) ( Auto) 0.6, Sodium Level 133L, Potassium Level 3.5, Chloride Level 96L, Carbon Dioxide Level 31, Anion Gap 6, Blood Urea Nitrogen 36H, Creatinine 0.7, Estimat Glomerular Filtration Rate , Glucose Level 97, Calcium Level 9.0, Total Bilirubin 0.9, Aspartate Amino Transf (AST/SGOT) 17, Alanine Aminotransferase ( ALT/SGPT) 22, Alkaline Phosphatase 61, Total Protein 6.7, Albumin 2.9L, Globulin 3.8, Albumin/Globulin Ratio 0.8L Current Medications Medications (Trade) Dose Ordered Sig/Bijal Route PRN Reason Start Time Stop Time Status Last Admin Dose Admin Acetaminophen (Tylenol) 650 mg Q4H PRN ORAL Mild Pain/Temp > 100.5 08/04/18 14:00 08/29/18 21:59 Acetazolamide (Diamox) 250 mg TWICE A DAY ORAL 08/04/18 18:00 08/31/18 08:59 08/05/18 09:10 Al Hydroxide/Mg Hydroxide (Mylanta) 30 ml Q4H PRN ORAL DYSPEPSIA 08/04/18 12:15 08/29/18 12:14 Albuterol/ Ipratropium (Albuterol/ Ipratropium) 3 ml Q4H PRN HHN Shortness of Breath 08/04/18 12:15 08/09/18 12:14 Diltiazem HCl (Cardizem) 60 mg EVERY 8 HOURS ORAL 08/04/18 14:00 09/01/18 05:59 08/05/18 06:09 Escitalopram Oxalate (Lexapro) 10 mg DAILY ORAL 08/05/18 09:00 08/31/18 12:03 08/05/18 09:10 Famotidine (Pepcid) 10 mg DAILY ORAL 08/05/18 09:00 08/30/18 08:59 08/05/18 09:11 Heparin Sodium (Porcine) (Heparin 5000 units/ml) 5,000 units EVERY 12 HOURS SUBQ 08/04/18 21:00 08/30/18 08:59 08/05/18 09:18 Ipratropium Bath (Atrovent) 500 mcg TIDRT HHN 08/04/18 13:00 08/07/18 18:59 08/04/18 19:30 Losartan Potassium (Cozaar) 50 mg DAILY ORAL 08/05/18 09:00 08/30/18 08:59 08/05/18 09:10 Magnesium Hydroxide (Mom) 30 ml DAILYPRN PRN ORAL Constipation 08/04/18 12:15 08/29/18 12:14 Pantoprazole (Protonix) 40 mg DAILY ORAL 08/05/18 09:00 09/01/18 08:59 08/05/18 09:10 Patient Own Medication (Patient's Own Med) 1 ea DAILY ORAL 08/05/18 09:00 08/31/18 11:30 08/05/18 09:11 Tramadol HCl (Ultram) 50 mg Q6H PRN ORAL Moderate Pain (Pain Scale 4-6) 08/04/18 11:45 08/07/18 05:44 Vitamin D (Vitamin D) 1,000 intlu DAILY ORAL 08/05/18 09:00 08/30/18 08:59 08/05/18 09:11 Phil Mario MD Aug 05, 2018 09:34
--- NOTE | 2018-08-05 11:02 | Diagnostic Imaging Report ---
Indication: Abdominal pain, abnormal renal function tests Technique: Staley-scale and duplex images of the upper abdomen were obtained. Doppler interrogation of the pancreatic and hepatic vessels Comparison: Made to CT scan 08/02/2018 Findings: Gallbladder is is distended, but without stones, wall thickening, nor pericholecystic fluid. Sonographic King's sign is negative. Common bile duct measures to mm in diameter. No intrahepatic biliary ductal dilatation. Liver demonstrates normal echogenicity, no focal abnormality. Portal vein and hepatic veins are patent. Pancreas is obscured by bowel gas. Spleen is unremarkable. Left kidney measures 10.1 cm in length. Right kidney measures 11.2 cm length. Both kidneys demonstrate normal echogenicity. There is no hydronephrosis. There is a small left renal cyst . Abdominal aorta is partially obscured by bowel gas, visualized portions are non-aneurysmal . Impression: Negative for gallstones or dilated ducts Note nonvisualization of the pancreas, incomplete visualization of the abdominal aorta Incidental finding small left renal cyst, also reported on prior CT
--- NOTE | 2018-08-05 11:59 | General Surgery Progress Note ---
General Surgery-Progress Note Subjective Symptoms: improved, pain absent, tolerating diet, passing flatus Objective Last 24 Hour Vital Signs Date Time Temp Pulse Resp B/P (MAP) Pulse Ox O2 Delivery O2 Flow Rate FiO2 08/05/18 09:10 132/61 08/05/18 08:00 2.0 08/05/18 08:00 97.5 72 20 132/61 (84) 96 08/05/18 07:58 Nasal Cannula 08/05/18 07:58 96 Nasal Cannula 2.0 28 08/05/18 07:58 Nasal Cannula 08/05/18 07:58 Nasal Cannula 2.0 28 08/05/18 06:09 77 111/59 08/05/18 04:00 2.0 08/05/18 04:00 81 08/05/18 04:00 97.2 84 18 111/59 (76) 96 08/05/18 01:00 70 18 98 08/05/18 00:00 2.0 28 08/05/18 00:00 76 08/05/18 00:00 98.1 77 16 119/59 (79) 95 08/04/18 22:32 77 18 99 Facial 28 08/04/18 21:51 77 120/50 08/04/18 21:00 Nasal Cannula 2.0 08/04/18 20:00 2.0 08/04/18 20:00 97.0 89 20 120/50 (73) 90 08/04/18 20:00 81 08/04/18 19:41 82 20 98 Nasal Cannula 2.0 28 08/04/18 19:30 Nasal Cannula 2.0 28 08/04/18 19:30 88 18 Nasal Cannula 2.0 28 08/04/18 19:30 88 18 95 Nasal Cannula 2.0 28 08/04/18 19:30 95 Nasal Cannula 2.0 28 08/04/18 16:00 85 08/04/18 16:00 97.9 76 20 104/51 (68) 94 08/04/18 16:00 2.0 28 08/04/18 14:35 88 20 99 Nasal Cannula 2.0 28 08/04/18 14:13 68 16 95 Nasal Cannula 4.0 08/04/18 14:00 101 98/48 08/04/18 12:00 2.0 28 11/12/18 12:00 93 08/04/18 12:00 98.0 83 18 108/57 (74) 100 08/04/18 12:00 2.0 28 I&O Intake and Output 08/04/18 08/05/18 18:59 06:59 # Voids 1 2 # Bowel Movements 2 Drains: none Cardiovascular: RSR Respiratory: clear Abdomen: soft, flat, non-tender, present bowel sounds Extremities: no tenderness, no cyanosis Laboratory Tests Test 08/05/18 06:00 White Blood Count 6.9 K/UL (4.8-10.8) Red Blood Count 4.89 M/UL (4.20-5.40) Hemoglobin 14.6 G/DL (12.0-16.0) Hematocrit 44.3 % (37.0-47.0) Mean Corpuscular Volume 91 FL (80-99) Mean Corpuscular Hemoglobin 29.9 PG (27.0-31.0) Mean Corpuscular Hemoglobin Concent 33.0 G/DL (32.0-36.0) Red Cell Distribution Width 12.1 % (11.6-14.8) Platelet Count 210 K/UL (150-450) Mean Platelet Volume 6.8 FL (6.5-10.1) Neutrophils (%) (Auto) 70.4 % (45.0-75.0) Lymphocytes (%) (Auto) 15.0 % (20.0-45.0) L Monocytes (%) (Auto) 13.1 % (1.0-10.0) H Eosinophils (%) (Auto) 0.8 % (0.0-3.0) Basophils (%) (Auto) 0.6 % (0.0-2.0) Sodium Level 133 MMOL/L (136-145) L Potassium Level 3.5 MMOL/L (3.5-5.1) Chloride Level 96 MMOL/L (98-107) L Carbon Dioxide Level 31 MMOL/L (21-32) Anion Gap 6 mmol/L (5-15) Blood Urea Nitrogen 36 mg/dL (7-18) H Creatinine 0.7 MG/DL (0.55-1.30) Estimat Glomerular Filtration Rate mL/min (>60) Glucose Level 97 MG/DL (74-106) Calcium Level 9.0 MG/DL (8.5-10.1) Total Bilirubin 0.9 MG/DL (0.2-1.0) Aspartate Amino Transf (AST/SGOT) 17 U/L (15-37) Alanine Aminotransferase (ALT/SGPT) 22 U/L (12-78) Alkaline Phosphatase 61 U/L (46-116) Total Protein 6.7 G/DL (6.4-8.2) Albumin 2.9 G/DL (3.4-5.0) L Globulin 3.8 g/dL Albumin/Globulin Ratio 0.8 (1.0-2.7) L Plan Problems: (1) Abdominal pain Assessment & Plan: abdominal pain, drowsy, CT with distended gallbladder, no leukocytosis, lft's okay. Ultrasound ordered and just completed. no stones or ductal dilatation clinically stable and no signs or symptoms of acute cholecystitis. likely gallbladder distention physiological from being NPO. pain has resolved. no n/v// f/c -advance diet as tolerated -no surgical intervention planned -okay to d/c from surgical standpoint -thank you for allowing me to participate in patients care. Bon Boland Aug 05, 2018 11:59
[2018-08-05 12:00] VITALS: BP 113/51
--- NOTE | 2018-08-06 03:31 | Progress Note ---
DATE: 08/05/2018 CARDIOLOGY PROGRESS NOTE SUBJECTIVE: The patient remains with minimal tolerance to BiPAP at night. Ultrasound has been reviewed of the abdomen and is negative. There is no evidence of acute cholecystitis based on diagnostic studies and clinical findings. The patient's monitored rhythm remains sinus with episodes of multifocal atrial ____ and frequent atrial ectopics. OBJECTIVE: VITAL SIGNS: Blood pressure 111/59, pulse 77, and respiratory rate 18. LUNGS: Diminished breath sounds. No wheezing. HEART: Irregularly irregular rhythm. Normal S1 and S2. ABDOMEN: Soft and nontender. No guarding or rebound. EXTREMITIES: No edema. IMPRESSION: 1. Acute on chronic diastolic congestive heart failure, now clinically compensated. 2. Chronic obstructive pulmonary disease with no active bronchospasm. 3. Multifocal atrial tachycardia and atrial tachyarrhythmias, rate controlled now. 4. Hypertensive heart disease with adequate blood pressure control. 5. Significant pulmonary hypertension due to underlying lung disease. PLAN: 1. Outpatient followup. 2. Medications reviewed. 3. Maintenance diuretic. 4. Monitor electrolytes. 5. High risk for decompensation due to advanced lung disease. 6. Oxygen supplementations chronically. Alonzo Guidry M.D. DR: ANA JOB#: [id number] CC:
--- NOTE | 2018-08-06 10:36 | Discharge Summary ---
Discharge Summary Discharge Summary _ DATE OF ADMISSION: 07/30/2018 DATE OF [id number]/13/2018 REASON FOR ADMISSION: 87 years old female with past medical history of chronic respiratory failure, congestive heart failure, COPD, severe pulmonary hypertension, atrial arrhythmias, encephalopathy, was recently hospitalized for COPD exacerbation and hypoxemia. She was subsequently discharged home and was doing well. Apparently patient sustained a mechanical fall at home due to losing her balance. The next day she felt weak and confused. Patient was able to stand up. Family brought her to ED for evaluation. ABG revealed severe hypercapnia with PCO2 of 94.7 and pH 7.29 , which was done on 2 L of oxygen via nasal cannula. She was subsequently placed on the BiPAP. Laboratory workup revealed CO2 41. Troponin negative. Pro BNP 2049. Ammonia 60. No leukocytosis, stable hemoglobin and hematocrit. Chest x-ray revealed vascular congestion. No evidence of rib fractures. Urinalysis revealed no evidence of UTI. Urine toxicology screen was negative. Patient admitted with diagnosis of respiratory failure, COPD, congestive heart failure. CONSULTANTS: extension worker surgery Dr. Boland Internal medicine Dr. Reddy [facility] COURSE: Patient admitted to monitored floor. Patient was continued on BiPAP. Band Cutting Machine Operator and nuclear fuel processing technician closely followed. Patient started on diuresis with intravenous Lasix with close monitoring of volume and cardiorenal parameters. Echocardiogram revealed preserved ejection fraction of 55%. No evidence of wall motion abnormality. Mild left ventricular hypertrophy. Patient was followed up with CXR and pro BNP. Pro BNP from initial 2049 down to 87 prior to discharge. Cardizem was resumed for arrhythmia suppression due to history of paroxysmal atrial arrhythmias. No current indication for anticoagulation as per extension worker. Blood pressure was managed with angiotensin receptor arvin and remained stable. Manager Package closely followed with ABG and chest x-ray. Pulmonary toilet provided. Patient started on Diamox to stimulate respiratory drive. Upon discharge CO2 down to 31 from initial 43. DVT prophylaxis provided. Per nuclear fuel processing technician, patient had chronic respiratory failure due to underlying COPD and congestive heart failure. Pulmonary hypertension likely due to severe COPD. BiPAP was not sufficient for this patient . She required and was ordered Trilogy NIV/ noninvasive ventilation / for AVAPS- AE mouthpiece ventilation support. Trilogy will reduce the work of breathing and CO2 retention. Trilogy was ordered and was ready to be delivered to patient's home. Patient had oxygen at home. Manager Package discussed in detail with family. Patient complained of abdominal pain and abdominal distention. CT of the abdomen and pelvis revealed no acute traumatic he injury, but showed distention of the gallbladder. No ductal dilatation or calcified stones. Thickening of the distal stomach , no obstruction. Surgery consult was requested. Follow-up abdominal ultrasound was negative for gallstones and dilated ducts. Surgeon personally reviewed CT scan and ultrasound. No surgical interventions were necessary at this time. Surgeon cleared patient for discharge. Fall precautions were maintained. Blood cultures were negative. GI prophylaxis provided. Pain management was addressed. Bowel regimen instituted. Psychiatrist seen and evaluated patient, and diagnosed patient with dementia and major depressive disorder. Per psychiatrist patient lacked capacity to make informed decisions. Daughter should be the decision maker. Patient started on anxiolytics on as needed basis and Lexapro in am. Further plan of care was discussed with the patient's daughter . Patient stabilized and was discharged home for continuation of care. FINAL DIAGNOSES: Acute on chronic hypercapnic respiratory failure Acute on chronic diastolic congestive heart failure Acute on chronic respiratory acidosis Pulmonary hypertension Metabolic encephalopathy Severe COPD Multifocal atrial tachycardia and atrial arrhythmias Mild protein calorie malnutrition Major depressive disorder Dementia DISCHARGE MEDICATIONS: See Medication Reconciliation list. DISCHARGE INSTRUCTIONS: Patient was discharged home Follow up with primary care provider in one week. I have been assigned to dictate discharge summary for this account. I was not involved in the patient's management. Helen Nolasco NP Aug 06, 2018 10:36
== END 2018-08-05 14:00 | disposition home or self-care (01) | DRG 291 ==
LOC: EMR 10:45 → UNDOADMIN 10:50 → 2W 10:50 → 2E 10:50 → EDBEDREQ 11:48 → 2E 08-04 11:00
PROC: 5A09357 Assistance with Respiratory Ventilation, Less than 24 Consecutive Hours, Continuous Positive Airway Pressure (ICD-10-PCS; principal; 2018-07-30)
DX: I50.33 Acute on chronic diastolic (congestive) heart failure (principal); G93.41 Metabolic encephalopathy; J96.22 Acute and chronic respiratory failure with hypercapnia; J96.21 Acute and chronic respiratory failure with hypoxia; E44.1 Mild protein-calorie malnutrition; E87.2 Acidosis; I47.1 Supraventricular tachycardia; R10.84 Generalized abdominal pain; I27.20 Pulmonary hypertension, unspecified; J44.9 Chronic obstructive pulmonary disease, unspecified; I49.8 Other specified cardiac arrhythmias; F32.9 Major depressive disorder, single episode, unspecified; F03.90 Unspecified dementia, unspecified severity, without behavioral disturbance, psychotic disturbance, mood disturbance, and anxiety; Z87.891 Personal history of nicotine dependence; Z86.73 Personal history of transient ischemic attack (TIA), and cerebral infarction without residual deficits; Z91.14 Patient's other noncompliance with medication regimen
CPT/HCPCS: 36415; 36600; 71045; 74176; 76700; 80048; 80053; 80307; 81003; 82140; 82550; 82803; 83605; 83735; 83880; 84484; 85025; 85610; 85730; 87040; 93005; 93306; 94640; 94660; 94664; 94760; 96374; 99291; J8499